=== PATIENT | female | born 1995 | race Caucasian/White ===

== ENCOUNTER → 2023-03-01 09:14 | Outpatient (BNVA) | payer MEDICAID, SELFPAY | PROVIDERS: Visit Provider Physician Assistant Surgical ==

== ENCOUNTER → 2023-03-02 08:05 | Outpatient (BNVA) | payer MEDICAID, SELFPAY | PROVIDERS: Visit Provider Surgery ==

== ENCOUNTER 2024-11-02 07:58 | Outpatient (AMB) | payer OTHER, SELFPAY ==
--- NOTE | 2024-11-02 09:56 | A.OFFVIS_ITS ---
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: Details: Start time: 9.41am, End time: 10.41am ?I spent 55 minutes speaking with the patient on the phone plus an additional 5 minutes reviewing and updating records for a total of 60 minutes HPI Comments Details: Previous weight loss efforts: Nutrisystem, Herbalife, difficult to exercise due to DJD Wakes up: 6am, Sleeps: 10pm Breakfast: 8.30am (oatmeal, muffin) Lunch: 12.30pm (meat and vegetables or skips and snacks) Dinner: 6pm (steak, chicken, rice and vegetables) Snacks: twice between breakfast (pretzels, crackers and fruits) Exercise: walking outside, Stepper Fluids: Coffee 1 cup/day (creamer), tea: none, soda: none, juice: occasionally, ETOH: none PFSH Medical History (Updated 11/02/24 @ 10:20 by Raymond Martinez MD) Anxiety Depression GERD (gastroesophageal reflux disease) DJD (degenerative joint disease) Surgical History (Updated 03/01/23 @ 09:34 by Nolvia Patel CMA) Hx of arthroscopic knee surgery Family History (Updated 11/01/24 @ 10:07 by Nolvia Patel CMA) Mother Hypertension Back problem Brother No problems noted. Social History (Updated 11/01/24 @ 10:07 by Nolvia Patel CMA) Alcohol intake: current Alcohol intake frequency: holidays/special occasions only Patient Tobacco Use Status: Never used Tobacco Telehealth Telehealth Telehealth Platform: Telephone Location of provider rendering services: practice address Location of patient: address on file Patient Identification confirmed using: Name, : Yes Telehealth method: voice only Patient verbally consented to treatment: Yes Patient verbally consented to billing insurance company: Yes Patient informed of any privacy concerns related to visit: Yes Minutes spent on Phone/Video with Pt.: 60 Assessment & Plan Assessment & Plan (1) Obesity: Code(s): E66.9 - Obesity, unspecified Category: Medical Qualifiers: Obesity type: due to excess calories Obesity classification: adult class 2 (BMI 35 - 39.9) Serious obesity comorbidity presence: without serious comorbidity Body mass index: BMI 37.0-37.9 Qualified Code(s): E66.812 - Obesity, class 2; E66.09 - Other obesity due to excess calories; Z68.37 - Body mass index [BMI] 37.0-37.9, adult Plan: 1.? Plan for lap sleeve gastrectomy. If diaphragmatic or ventral hernias are present at time of surgery, these will be repaired laparoscopically as well. I emphasized the importance of close follow-up, adherence to instructions and good communication. The surgery does not replace the need to change your lifestlyle which is the cause of the obesity problem. The surgery provides the motivation to try again to change your lifestyle, it reduces the appetite and make the transition to a better lifestyle easier and doubles the amount of weight you would lose compared to doing the lifestyle change without the surgery. You will need to be on a liquid diet with protein shakes for 2 weeks before surgery to maximize weight loss and boost your nutritional status to recover better from surgery and also for the first two weeks after surgery to let the stomach heal before we introduce other foods. After the first 2 weeks we will introduce protein bars and soft foods like scrambled eggs, cottage cheese and yogurt and after the 6th week will introduce meat, fish and cooked vegetables in small amounts. Over time you should be able to eat everything in small amounts. Side effects like nausea, vomiting, heartburn or abdominal pain are not common in the practice unless you are not following in the practice. This operation requires lifetime commitment to following in our practice and communication with me. You will much less weight and experience side effects if you don?t communicate or not following in the practice. Complications are rare and in our practice is about 1/10 of the national average. However, you can develop bleeding that may require transfusion (hasn?t happened for year in the practice), you may from complications (we did not have any deaths in the practice) and infections. Infections are usually a result of breakdown in communication or not understanding or following directions correctly. They are difficult to treat, they can happen during the first 6 weeks, they may require to be in the hospital for weeks or even months, not being able to eat by mouth and you may have drains and surgeries to try and correct the issue. Other risks and complications include possible conversion to an open procedure, leaks, small bowel obstruction, blood clots, cardiac, or pulmonary complications, as intermediate accountant complications such as ulcers, insufficient weight loss and vitamin deficiencies. 2. You will receive a link of our software ruthann to generate an individualized nutritional and exercise plan specific for you. Please send me a screenshot of the plans you will generate Meal to include lean meat (beef, fish, pork, turkey, chicken), or mozambican yogurt, or egg whites, or beans with a salad with olive oil and fruits (berries, pears, apples, kiwi). Avoid salt, breads, potatoes, rice, pasta, desserts. ?3. If you choose shakes, each shake would be drunk slowly, like coffee in a period of 2 hours. ?4. If you choose bars, cut each bar in 4 pieces and eat each piece in 30min ?to make each bar last 2 hours. ?5. I emphasized the importance of measuring accurately the food portion and measure it when serving the food in plate ?6. The meal portions include a specific number of forks of meat and salad. You always eat the meat portion but you can replace up to half of salad/vegetables portion with rice, potatoes or pasta, or a fruit ?if you like. The less you do it the better weight loss will be. ?7. One full-size fork is what it can be scooped on the fork without falling aside and not what can be bit with the fork. Use regular forks like those you find in a typical restaurant. ?8.? Please buy the body composition scale we discussed and send me weight measurements as soon as possible and then once a week. Always include your diet and exercise plan. 9. The best choice would be to purchase a stationary bike, elliptical or treadmill at home that can track calories. Let me know if you do so I can give you an exercise plan. ?10.?It is important of avoiding and for at least 18 months postoperatively and has been discussed at the infosession. ?11. Goal is to lose at least 1.5-2lbs per week ?12. Goal to lose 10% of your weight before surgery, which is about 21lbs. Ultimate weight goal: 191lbs before surgery 13. Please follow the diet plan exactly without any change. If you don't like something about the plan or you feel hungry you need to communicate with me so I can help you revise the plan. You should not change the plan yourself. 14. To be scheduled for EGD due to the history of GERD. The possibility of biopsies was discussed. Patient needs to avoid use of NSAIDs and aspirin for 1 week prior to EGD. You must be on liquids only the day before your endoscopy. Risks of perforation and bleeding was discussed with the patient. This will be an outpatient procedure with IV sedation. Orders: Orders Insulin Today E66.9 - Obesity, unspecified, K21.9 - Gastro-esophageal reflux disease without esophagitis, Z68.35 - Body mass index [BMI] 35.0-35.9, adult Lipid Panel Today E66.9 - Obesity, unspecified, K21.9 - Gastro-esophageal reflux disease without esophagitis, Z68.35 - Body mass index [BMI] 35.0-35.9, adult IRON PROFILE Today E66.9 - Obesity, unspecified, K21.9 - Gastro-esophageal reflux disease without esophagitis, Z68.35 - Body mass index [BMI] 35.0-35.9, adult Comprehensive Met. Panel Today E66.9 - Obesity, unspecified, K21.9 - Gastro-esophageal reflux disease without esophagitis, Z68.35 - Body mass index [BMI] 35.0-35.9, adult C Reactive Protein Today E66.9 - Obesity, unspecified, K21.9 - Gastro- esophageal reflux disease without esophagitis, Z68.35 - Body mass index [BMI] 35.0-35.9, adult Vitamin A Today E66.9 - Obesity, unspecified, K21.9 - Gastro-esophageal reflux disease without esophagitis, Z68.35 - Body mass index [BMI] 35.0-35.9, adult TSH reflex Free T4 Today E66.9 - Obesity, unspecified, K21.9 - Gastro- esophageal reflux disease without esophagitis, Z68.35 - Body mass index [BMI] 35.0-35.9, adult ECG 12 lead EKG Today E66.9 - Obesity, unspecified, K21.9 - Gastro-esophageal reflux disease without esophagitis, Z68.35 - Body mass index [BMI] 35.0-35.9, adult FL upper GI w air Today E66.9 - Obesity, unspecified, K21.9 - Gastro-esophageal reflux disease without esophagitis, Z68.35 - Body mass index [BMI] 35.0-35.9, adult Hemoglobin A1c Today E66.9 - Obesity, unspecified, K21.9 - Gastro-esophageal reflux disease without esophagitis, Z68.35 - Body mass index [BMI] 35.0-35.9, adult H Pylori Breath Test Today E66.9 - Obesity, unspecified, K21.9 - Gastro- esophageal reflux disease without esophagitis, Z68.35 - Body mass index [BMI] 35.0-35.9, adult Complete Blood Count Auto Diff Today E66.9 - Obesity, unspecified, K21.9 - Gastro-esophageal reflux disease without esophagitis, Z68.35 - Body mass index [BMI] 35.0-35.9, adult Vitamin B12 and Folate Today E66.9 - Obesity, unspecified, K21.9 - Gastro- esophageal reflux disease without esophagitis, Z68.35 - Body mass index [BMI] 35.0-35.9, adult Zinc Today E66.9 - Obesity, unspecified, K21.9 - Gastro-esophageal reflux disease without esophagitis, Z68.35 - Body mass index [BMI] 35.0-35.9, adult Vitamin B1 Today E66.9 - Obesity, unspecified, K21.9 - Gastro-esophageal reflux disease without esophagitis, Z68.35 - Body mass index [BMI] 35.0-35.9, adult Ferritin Today E66.9 - Obesity, unspecified, K21.9 - Gastro-esophageal reflux disease without esophagitis, Z68.35 - Body mass index [BMI] 35.0-35.9, adult Vitamin D 25-OH Total Today E66.9 - Obesity, unspecified, K21.9 - Gastro- esophageal reflux disease without esophagitis, Z68.35 - Body mass index [BMI] 35.0-35.9, adult US abdomen comp w elastography Today E66.9 - Obesity, unspecified, K21.9 - Gastro-esophageal reflux disease without esophagitis, Z68.35 - Body mass index [BMI] 35.0-35.9, adult XR chest 2V Today E66.9 - Obesity, unspecified, K21.9 - Gastro-esophageal reflux disease without esophagitis, Z68.35 - Body mass index [BMI] 35.0-35.9, adult Referrals Nutrition/Dietitian Referral E66.9 - Obesity, unspecified, K21.9 - Gastro- esophageal reflux disease without esophagitis, Z68.35 - Body mass index [BMI] 35.0-35.9, adult Behavioral Health Referral E66.9 - Obesity, unspecified, K21.9 - Gastro- esophageal reflux disease without esophagitis, Z68.35 - Body mass index [BMI] 35.0-35.9, adult
[2024-11-02 10:03] VITALS: BMI 37.6
== END 2024-11-02 10:42 | disposition home or self-care (01) ==
LOC: HO.HBS 07:58
PROVIDERS: Visit Provider Surgery
DX: E66.812 Obesity, class 2 (principal); Z68.37 Body mass index [BMI] 37.0-37.9, adult
CPT/HCPCS: 99215

== ENCOUNTER 2024-11-07 08:00 | Day surgery (SDC) | payer OTHER, SELFPAY ==
--- NOTE | 2024-11-06 09:04 | HO.ANESPROP2 ---
Documented by User: Ashtyn Rosas NP 11/06/24 09:05 HPI - Anesthesia Eval Consult details Narrative: 28yo F for Upper Endoscopy PMFSH Active Problems Active Problems: All Active Problems Anxiety (Acute) Depression (Acute) GERD (gastroesophageal reflux disease) (Acute) DJD (degenerative joint disease) (Acute) BMI 35.0-35.9,adult (Acute) Obesity (Acute) Past Medical History Medical History Anxiety Depression GERD (gastroesophageal reflux disease) DJD (degenerative joint disease) Family History Family History Mother Hypertension Back problem Brother No problems noted. Surgical History Surgical History Hx of arthroscopic knee surgery Social History Social History Are you a primary patient care coordinator to a significant other at home: No Do you presently have visiting nurse or other home services: No Alcohol intake: current Alcohol intake frequency: holidays/special occasions only Patient Tobacco Use Status: Former Tobacco user Use of substances other than those prescribed or required for medical reasons: No Have you been hit, kicked, punched, or otherwise hurt by someone within the past year? If so, by whom?: No Are you DNR?: No Advance Directives: No Advance Directives Information Provided: Yes Recently lost weight without trying: No Nutrition Risks: No Nutritional Risk Patient : No FDLMP: 09/20/24 Meds Allergies Allergy/AdvReac Type Severity Reaction Status Date / Time Penicillins Allergy Mild Hives Verified 11/07/24 08:19 apples Allergy Mild Numbness Uncoded 11/02/24 09:57 Home Medications ?Medication ?Instructions ?Recorded ?Confirmed ?Last Taken ?Type hydroxyzine HCl 10 mg tablet 5 mg PO Q8H PRN anxiety 03/01/23 11/02/24 Unknown History Assessment and Plan Assessment Anesthesia Assessment: Chart Reviewed Documented by User: Michell Lebron MD 11/07/24 08:46 PMFSH Past Medical History Medical History Anxiety Depression GERD (gastroesophageal reflux disease) DJD (degenerative joint disease) Family History Family History Mother Hypertension Back problem Brother No problems noted. Surgical History Surgical History Hx of arthroscopic knee surgery History of Problems with Anesthesia: No Social History Social History Are you a primary patient care coordinator to a significant other at home: No Do you presently have visiting nurse or other home services: No Alcohol intake: current Alcohol intake frequency: holidays/special occasions only Patient Tobacco Use Status: Former Tobacco user Use of substances other than those prescribed or required for medical reasons: No Have you been hit, kicked, punched, or otherwise hurt by someone within the past year? If so, by whom?: No Are you DNR?: No Advance Directives: No Advance Directives Information Provided: Yes Recently lost weight without trying: No Nutrition Risks: No Nutritional Risk Patient : No FDLMP: 09/20/24 Meds Allergies Allergy/AdvReac Type Severity Reaction Status Date / Time Penicillins Allergy Mild Hives Verified 11/07/24 08:19 apples Allergy Mild Numbness Uncoded 11/02/24 09:57 Home Medications ?Medication ?Instructions ?Recorded ?Confirmed ?Last Taken ?Type hydroxyzine HCl 10 mg tablet 5 mg PO Q8H PRN anxiety 03/01/23 11/02/24 Unknown History Exam Airway Mallampati Class: II TM Dist: >3cm Neck ROM: Full Loose/Missing/Broken Teeth: No Heart: RRR Lungs: CTA Assessment and Plan Assessment Anesthesia Assessment: Anesthesia Plan Discussed Final Anesthetic Review History of Problems with Anesthesia: No NPO: Yes ASA Class: II Final Preanesthetic Review: Meds/Allgs Chart Reviewed, Consent Obtained/Reviewed and Anes Risks/Benef Reviewed Patient Risk: Low Procedure Risk: Intermediate Anesthetic Plan Anesthetic Plan: MAC: Disposition: Standard PACU
--- NOTE | 2024-11-07 08:22 | MHC.SHP ---
Pre-Procedural Eval Section A - 24 Hr Update-Section A only Date of Service: 11/07/24 The patient is an INPATIENT: No Section B - Complete if H&P > 30 days Chief Complaint: obesity Details of Present Illness: GERD Relevant Family History (Specify if Yes): No Relevant Social History: None Present Medications: None Medical History: No relevant PMH History of Previous Operations: No relevant previous surgery Allergies: Allergies Allergy/AdvReac Type Severity Reaction Status Date / Time Penicillins Allergy Mild Hives Verified 11/07/24 08:19 apples Allergy Mild Numbness Uncoded 11/02/24 09:57 Review of Systems Sugical H&P ROS: Negative: Constitution, Cardiovascular, Respiratory, Neurological, Psychiatric, Hem-Onc, Allergic/Immunologic, Gastrointestinal, Genitourinary, Musculoskeletal, Integumentary, Endocrine and Eyes/Ears/Nose/Throat Exam Surgical H&P Exam: Normal: HEENT, Normal: Heart, Normal: Lungs, Normal: Extremities, Normal: Abdomen, Normal: Skin and Normal: Neurological Plan Diagnosis/Plan: Unchanged (EGD to assess etiology of GERD. Risks of bleeding and perforation were discussed with the patient and she is in agreement with the plan.) I have reviewed the history and physical and performed a pertinent physical examination on my patient. No changes have occurred unless specified. Time Spent With Patient Time: Total time managing care of this patient today ____ minutes.
[2024-11-07 08:31] VITALS: BP 115/88; PULSE 103; RESP 14; TEMP 36.8; O2SAT 98; BMI 38.0
--- NOTE | 2024-11-07 08:31 | PM.OP ---
Brief Operative Note Date of Service: 11/07/24 Pre-op diagnosis: GERD Post-op diagnosis: same Procedure: PROCEDURE DATE: 11/07/2024 PREOPERATIVE DIAGNOSIS: GERD POSTOPERATIVE DIAGNOSIS: ?Same as above. 1) small hiatal hernia, 2) distal gastritis PROCEDURE: Laigtdsi-qdvlbh-tqycytcreecu with biopsies Surgeon: Marilou Martinez M.D.. Ph.D. Underground Drill Operator: None ? Anesthesia: IV sedation Estimated blood loss: ?Minimal FINDINGS AND PROCEDURE: ? OPERATIVE INDICATIONS: ?The patient is a 28 year old female known to me who is interested in bariatric surgery. The patient has GERD. Based on this information I recommended an upper endoscopy to evaluate the patient's symptoms. Risks and complications of the surgery were discussed with the patient in advance particularly the possibility of perforation or bleeding that may require surgical intervention. The patient understood the risks and was in agreement with the plan. ? PROCEDURE: After informed consent was obtained by the patient, the patient was ?transferred to the Operating Room and was placed in the supine position.? After successful induction of IV sedation, a mouth block was inserted and the patient was placed in the left lateral decubitus position. An upper endoscopy was performed next, the oropharynx and esophagus appeared within the normal limits. There was a small hiatal hernia. The z-line was smooth. Two biopsies were obtained from the distal esophagus 2-3 cm proximal to the GE junction and two additional biopsies from the GE junction. The stomach was entered and it appeared to be of normal size. There was mild gastritis at distal antrum. There was no stricture or ulcer. A biopsy was obtained from the distal antrum. No significant bleeding was noted from any of the biopsy sites. The scope was then advanced into the duodenum which appeared to be normal as well. At that point the duodenum ?and the stomach were decompressed and the scope was withdrawn from the patient's mouth. The patient extubated and was transferred in stable condition to the Recovery Room for further care. I was present and performed all steps of the procedure. There were no residents to assist with this case. Jeffy Martinez M.D., Ph.D. Surgeon: Raymond Martinez MD Anesthesia: MAC Was an Underground Drill Operator used for this Procedure?: No Estimated blood loss (mL): 0 IV fluids (mL): 400 Urine output (mL): 0 (No Farmer to record output) Pathology: other (1) antrum x1, 2) fundus x1, 3) GE junction x2, 4) distal esophagus x2) Condition: stable Disposition: PACU
[2024-11-07 08:49] LABS: UPreg QC Valid YES; Urine Pregnancy NEGATIVE (NEGATIVE)
[2024-11-07] MEDS: Lactated Ringers 1,000 ML 80 ML IVCONT (08:56)
[2024-11-07 09:20] VITALS: BP 95/57; PULSE 91; RESP 18; TEMP 36.1; O2SAT 98
[2024-11-07 09:33] VITALS: BP 104/69; PULSE 103; RESP 16; TEMP 36.1; O2SAT 96
== END 2024-11-07 10:39 | disposition home or self-care (01) ==
PROVIDERS: Nurse Practitioner; Visit Provider Surgery
PROC: 0DJ08ZZ Inspection of Upper Intestinal Tract, Via Natural or Artificial Opening Endoscopic (ICD-10-PCS; CPT 43235; principal; 2024-11-07 09:30)
DX: K21.9 Gastro-esophageal reflux disease without esophagitis (principal); E66.09 Other obesity due to excess calories; Z68.37 Body mass index [BMI] 37.0-37.9, adult; K29.60 Other gastritis without bleeding; F32.A Depression, unspecified; F41.9 Anxiety disorder, unspecified; M19.90 Unspecified osteoarthritis, unspecified site; Z79.899 Other long term (current) drug therapy; Z88.0 Allergy status to penicillin; Z87.891 Personal history of nicotine dependence
CPT/HCPCS: 43239; 81025; 88305; 88313; 88342; J2003; J2704

== ENCOUNTER → 2024-11-07 08:00 | Outpatient (BNV) | payer OTHER, SELFPAY | PROVIDERS: Visit Provider Surgery | DX: K21.9 Gastro-esophageal reflux disease without esophagitis (principal) | CPT/HCPCS: 43239 ==

== ENCOUNTER 2024-11-15 08:48 | Outpatient (REF) | payer OTHER, SELFPAY ==
--- NOTE | ~2024-11-15 | XR_ITS ---
EXAMINATION: XR CHEST 2 VIEWS HISTORY: E66.9 - Obesity, unspecified COMPARISON: There are no prior studies for comparison. FINDINGS: PA and lateral views of the chest are submitted. The lungs are expanded and clear. There is no pleural effusion, pneumothorax, or pulmonary vascular congestion. The heart is normal in size. The bones are intact. XR/XR chest 2V IMPRESSION: Normal examination of the chest. Electronically signed by: Erasto Prado MD 11/15/2024 02:11 PM [facility]
--- NOTE | 2024-11-15 08:53 | ECG_ITS ---
Test Reason : OBS Blood Pressure : */* mmHG Vent. Rate : 70 BPM Atrial Rate : 70 BPM P-R Int : 140 ms QRS Dur : 92 ms QT Int : 394 ms P-R-T Axes : 40 24 24 degrees QTcB Int : 425 ms Normal sinus rhythm Normal ECG No previous ECGs available Referred By: Raymond Martinez Electronically Signed By: CAMELIA JONAS MD
== END 2024-11-15 08:49 | disposition home or self-care (01) ==
LOC: HO.XRAY 08:48
PROVIDERS: Visit Provider Surgery
DX: E66.9 Obesity, unspecified (principal); Z68.35 Body mass index [BMI] 35.0-35.9, adult; K21.9 Gastro-esophageal reflux disease without esophagitis
CPT/HCPCS: 71046; 93005

== ENCOUNTER → 2024-11-15 08:53 | Outpatient (BNV) | payer OTHER, SELFPAY | PROVIDERS: Visit Provider Internal Medicine Cardiovascular Disease | DX: E66.9 Obesity, unspecified (principal); Z68.35 Body mass index [BMI] 35.0-35.9, adult | CPT/HCPCS: 93010 ==

== ENCOUNTER → 2024-11-15 09:20 | Outpatient (BNV) | payer OTHER, SELFPAY | PROVIDERS: Visit Provider Radiology Diagnostic Radiology | DX: E66.9 Obesity, unspecified (principal) | CPT/HCPCS: 71046 ==

== ENCOUNTER → 2024-11-23 07:59 | Outpatient (BNV) | payer OTHER, SELFPAY | PROVIDERS: Visit Provider Radiology Diagnostic Radiology | DX: E66.9 Obesity, unspecified (principal) | CPT/HCPCS: 76700 ==

== ENCOUNTER 2024-11-23 09:04 | Outpatient (AMB) | payer OTHER, SELFPAY ==
--- NOTE | 2024-11-23 09:11 | A.OFFWM_ITS ---
Intake Intake Visit Reasons: OV BH Intake Allergies Penicillins Allergy (Mild, Verified 11/07/24 08:19) Hives apples Allergy (Mild, Uncoded 11/02/24 09:57) Numbness PFSH Medical History Anxiety Depression GERD (gastroesophageal reflux disease) DJD (degenerative joint disease) Surgical History Hx of arthroscopic knee surgery Family History Mother Hypertension Back problem Brother No problems noted. Social History Are you a primary morning caregiver to a significant other at home: No Do you presently have visiting nurse or other home services: No Alcohol intake: current Alcohol intake frequency: holidays/special occasions only Patient Tobacco Use Status: Former Tobacco user Behavioral Health Assessment Weight Management Therapy Therapy Notes Details PT is a 29 years old Female, who presents for a visit to complete BH assessment as part of surgical weight loss program. Presenting Concerns Referral Source WMP-Provider. Reason for referral Completion of behavioral health assessment as part of process for weight-loss surgery. Precipitating Event Obesity Living Situation Current Living Situation Rent At risk of losing current housing? No Satisfied with current living situation? Yes Comments PT lives with her partner and 5 y/o daughter, and partner kids (12, 8 and 4). Social History Family history and relationship PT has been in a relationship with current partner 1 year ago. Living together for about 9 months. PT has 1 daughter from previous relationship. Parents alive, not close to a=father. She has 2 siblings from dad's side and 1 sibling from mom's. Mom is to her stepfather who raised her. PT reports good fam relationships. Parental/Familial supply chain vice president obligations 5 y/o daughter. partners 3 kids live at home Developmental history and status None. Currently WNL. Social support Mom, partner. Community support None. Rastafari/Spirituality None Cultural/Ethnic information from dad's side and ramiro from maternal side PT was born in [place]. Legal Involvement and History Current or historical involvement with the legal system? None. Education Highest grade completed [employer]s diploma 1 year of college Preferred learning style Learn by doing Currently enrolled in educational program? No Interested in further educational program? Yes Educational Interests/Skills PT used to do office work, admin task/ Employment Employment Status Unemployed (Out of work since February/2024.) Wants help to find employment? No Meaningful activities [place], outdoor activities, play videogames Financial Situation Describe current financial situation Financial struggles are a major source of stress Financial assistance? Food [place], SSI (for daughter.) and [employer]AF[employer] Service Service? No Mental Health and Addiction Treatment Current/Past substance abuse? No Comments Alcohol: occasionally 1-2 x month. 1-3 drinks. Cigarettes/Tobacco: Occasionally smokes hooka w/ nicotine during social situation. Cannabis/Edibles: None. 7 years ago used cannabis. Current/Past addictive behavior concerns? No Psychiatric history PT used to take Lexapro 5mg and hydroxyzine HCL 5mg prescribed by her PCP, for anxiety. Never in therapy before. PT denies ever been in crisis or inpatient for mental health. There is no history and/or current concern about SI/Sa and self-harm or other harm. In 2014 she went to the ER with a panic attacks and anxiety triggered by illness. She got prescribed Zoloft but didn;t do well with that. in 2020 PCP prescribed medicine as her partner had a medical condition and stress/anxiety got worse. PT experiences anxiety Sx (rapid heartbeat, chest pressure, feeling flush like hot, overthinking) couple times at month, usually when gets overstimulated, overwhelmed or is stressed. When feels like this she takes 1/2 of the hydroxyzine and Sx resolve. Medical and Physical Health Summary Additional Medical History not covered in history PT reports she had knee problems since age 7. in he fall and set her backwards with knee issues. She stage 3 arthritis on knees, the worse is the right one. She will need a surgery and would benefit from losing weight. Sexual History concerns None Physical exam in the last year? Yes Pain Screening Current pain? Yes Pain in the last few months? Yes Comments Daily pain, pain level is an 8 1/2 most days, on good days the pain is manageable. She takes tylenol or motrin for pain. Medications Is the patient compliant with medications? Not applicable Does the patient have Bae Guardian in place? Not applicable Does the patient use complimentary health approaches? No Trauma/Abuse History History of trauma? Yes Assessment & Plan Assessment & Plan (1) Anxiety: Code(s): F41.9 - Anxiety disorder, unspecified Plan Not cleared yet as PT will have return for a second visit to finish assessment. Next ruthann: 12/21/2024 at 1pm, in person. - PT was offered a sooner visit but PT prefers in person. Coding Level of Care Code New Pt Psy Diag Eval (77849) Patient Type New Diagnoses Anxiety F41.9 Time Spent (min) 60
--- OUTSIDE RECORDS SUMMARY | 2024-11-23 09:30 | XMS_ITS | Clinical Summary ---
Author Organization [facility] Address [address] [place] [address] Care Team Providers Care Seafood Packer Name Role Phone Dakota Hook DO Primary Care Provider Unavaila ble Allergies Active Allergy Reactions Severity Noted Date Comments Amoxicillin Hives/Urticaria 02/23/2018 Penicillins Hives/Urticaria 02/23/2018 Medications Medication Sig Dispensed Refills Start Date End Date Status escitalopram (LEXAPRO) 5 MG tablet TAKE 1 TABLET BY MOUTH EVERY DAY 90 Tablet 1 04/25/2024 Active hydrOXYzine (ATARAX) 10 MG tablet TAKE 1/2 TABLET BY MOUTH EVERY 8 HOURS NEEDED FOR ANXIETY. 135 Tablet 1 04/25/2024 Active Active Problems Problem Noted Date Anxiety Patellar instability of both knees Immunizations Name Administration Dates Next Due COVID-19 (Moderna) PT Reported 03/09/2022,2020,08/31/2021 Tdap 09/23/2020 Family History Medical History Relation Name Comments Depression/Anxiety Maternal Grandfather Drug Abuse Maternal Grandfather Relation Name Status Comments Maternal Grandfather Social History Tobacco Use Types Packs/Day Years Used Date Smoking Tobacco: Never Smokeless Tobacco: Never Alcohol Use Standard Drinks/Week Comments No 0 (1 standard drink = 0.6 oz pur e alcohol) Sex Assigned at Date Recorded Female 02/25/2020 4:49 PM E DT Last Filed Vital Signs Vital Sign Reading Time Taken Comments Blood Pressure 110/68 07/15/2023 10:17 AM EDT Pulse 78 07/15/2023 10:17 AM EDT Temperature 36.8 ??C (98.3 ??F) 07/15/2023 10:17 AM E DT Respiratory Rate 12 03/21/2018 9:12 AM EDT Oxygen Saturation 99% 01/08/2020 9:03 AM EDT Inhaled Oxygen Concentration - - Weight 89.4 kg (197 lb) 07/15/2023 10:17 AM EDT Height 160 cm (5' 3 ) 07/15/2023 10:17 AM EDT Body Mass Index 34.9 07/15/2023 10:17 AM EDT Plan of Treatment Health Maintenance Due Date Last Done Comments CERVICAL CANCER SCREENING 2016 Covid-19 Vaccine (2022-11 4 season) 2024 03/09/2022, 09/28/2021, 08/31/2021 INFLUENZA (#1) 2024 07/03/2020 (Refused) BMI CHECK/ADVISE 10/24/2024 01/14/2022, 09/2021, 07/03/2020, Additional history exists DEPRESSION SCREENING/FOLLOWUP 10/24/2024, 07/15/2023, 06/08/2023, Additional history exists SOCIAL NEEDS SCREENING 10/24/2024 BASELINE HEALTH EXAM 18-39 07/03/2025 07/03/2020, CHOLESTEROL SCREENING 07/03/2025 07/03/2020 DTAP/TDAP/TD (2 - Td or Tdap) 09/23/2030 09/23/2020 PNEUMOCOCCAL VACCINE FOR HIG H RISK PATIENTS (#1) 2060 Care Teams Seafood Packer Relationship Specialty Start Date End Date Dakota Hook DO PCP - General Internal Medicine 12/04/21
--- OUTSIDE RECORDS SUMMARY | 2024-11-23 09:30 | XMS_ITS | Encounter Summary ---
Author Organization [facility] Address [address] [place] [address] Care Team Providers Care Tank Pumper Name Role Phone [place]-Radha Mckenzie MD Primary Care Provider Unavailable Dakota Hook DO Primary Care Provider Unavaila ble Encounter Details Date Type Department Care Team Description 03/25/2021 Pt. Non Urgent Medic al Question Adult Medicine - [address] [address] Yamila Butler PA-C Social History Tobacco Use Types Packs/Day Years Used Date Smoking Tobacco: Never Smokeless Tobacco: Never Alcohol Use Standard Drinks/Week Comments No 0 (1 standard drink = 0.6 oz pur e alcohol) Sex Assigned at Date Recorded Female 02/25/2020 4:49 PM E DT documented as of this encounter Miscellaneous Notes * Telephone Encounter - Sarah Hein L.P.N. - 03/26/2021 8:19 AM EDT From: Emili Lilly To: Paul Butler Sent: 03/25/2021 6:01 PM EDT Subject: Knee dislocation Hello. Just wanted to update I will be going to [facility] urgent care tomorrow following a fall I had on03/24/21 I dislocated my LEFT knee and it severely swollen and I can not stand on it. documented in this encounter Plan of Treatment Not on file documented as of this encounter Visit Diagnoses Not on filedocumented in this encounter Care Teams Tank Pumper Relationship Specialty Start Date End Date [place]-Radha Mckenzie MD PCP - General Internal Medicine 02/08/1808/14 Dakota Hook DO PCP - General Internal Medicine 12/04/21 documented as of this encounter
--- OUTSIDE RECORDS SUMMARY | 2024-11-23 09:30 | XMS_ITS | Encounter Summary ---
Author Organization [facility] Address [address] [place] [address] Care Team Providers Care Bicycle Ii Assembler Name Role Phone [place]-Radha Mckenzie MD Primary Care Provider Unavailable Dakota Hook DO Primary Care Provider Unavaila ble Reason for Visit * Reason Comments E-prescribe Rx Request Encounter Details Date Type Department Care Team Description 05/04/2021 Refill Adult Medicine - [address] [address] Yamila Butler PA-C E-prescribe Rx Request Social History Tobacco Use Types Packs/Day Years Used Date Smoking Tobacco: Never Smokeless Tobacco: Never Alcohol Use Standard Drinks/Week Comments No 0 (1 standard drink = 0.6 oz pur e alcohol) Sex Assigned at Date Recorded Female 02/25/2020 4:49 PM E DT documented as of this encounter Miscellaneous Notes * Telephone Encounter - Ayala Truong - 05/06/2021 1:56 PM EDT Lvm to book appt * Telephone Encounter - Anastacia Rodriguez M.A. - 05/05/2021 1:26 PM EDT Pt needs to pick a new pcp and make appt. Thank you Travis - 11/04/20 Nov - none * Telephone Encounter - Alisona Alexi - 05/05/2021 7:00 AM EDT Patient would like script to be: E-PRESCRIBED/FAXED TO PHARMACY WHEN WAS THE PATIENT'S LAST APPOINTMENT IN ADULT MEDICINE? 11/04/20 WHEN WAS THE LAST TIME THE PATIENT SAW THEIR PCP? No Does patient have an upcoming appointment? Too early to call pt (THE MEDICATION REQUESTED IS ON THE MED LIST ABOVE) All of the medications requested were on the CURRENT MEDS list Did you check the Pharmacy information above?: YES Patient wants: 30 -day supply Is this a mail order prescription request ? NO If the refill is from a FAXED refill request what is the RX # listed on the fax? N/A Patients current insurance carrier is: No billing information found for this encounter. Insurance ID #: No Subscriber Number on File documented in this encounter Plan of Treatment Not on file documented as of this encounter Visit Diagnoses Not on filedocumented in this encounter Care Teams Bicycle Ii Assembler Relationship Specialty Start Date End Date Jaye-Radha Mckenzie MD PCP - General Internal Medicine 02/08/1808/14 Dakota Hook DO PCP - General Internal Medicine 12/04/21 documented as of this encounter
--- OUTSIDE RECORDS SUMMARY | 2024-11-23 09:30 | XMS_ITS | Encounter Summary ---
Author Organization [facility] Address [address] [place] [address] Care Team Providers Care Water Trainer Name Role Phone Jaye-Radha Mckenzie MD Primary Care Provider Unavailable Dakota Hook DO Primary Care Provider Unavaila ble Reason for Visit * Reason Onset Date Comments TEST RESULTS 02/23/2018 Encounter Details Date Type Department Care Team Description 02/23/2018 Telephone Adult Medicine - [address] [address] Rox Aleman PA-C [address] [place] [id number] TEST RESULTS Social History Tobacco Use Types Packs/Day Years Used Date Smoking Tobacco: Never Smokeless Tobacco: Never Alcohol Use Standard Drinks/Week Comments No 0 (1 standard drink = 0.6 oz pur e alcohol) Sex Assigned at Date Recorded Female 02/25/2020 4:49 PM E DT documented as of this encounter Miscellaneous Notes * Telephone Encounter - Kesha Mg M.A. - 02/23/2018 4:07 PM EDT Images from the original note were not included. Lvm please advised of message below Rox Aleman PA-C [facility] Adult Med Floor Nurse ? Please call patient with normal results- normal knee xray documented in this encounter Plan of Treatment Not on file documented as of this encounter Visit Diagnoses Not on filedocumented in this encounter Care Teams Water Trainer Relationship Specialty Start Date End Date [place]-Radha Mckenzie MD PCP - General Internal Medicine 02/08/1808/14 Dakota Hook DO PCP - General Internal Medicine 12/04/21 documented as of this encounter
--- OUTSIDE RECORDS SUMMARY | 2024-11-23 09:30 | XMS_ITS | Encounter Summary ---
Author Organization [facility] Address [address] [place] [address] Care Team Providers Care Dairy Store Manager Name Role Phone Radha Hoover MD Primary Care Provider Unavailable Dakota Hook DO Primary Care Provider Unavaila ble Encounter Details Date Type Department Care Team Description 08/01/2020 Orders Only Medical Records [address] [place] [address] Yamila Butler PA-C Social History Tobacco Use Types Packs/Day Years Used Date Smoking Tobacco: Never Smokeless Tobacco: Never Alcohol Use Standard Drinks/Week Comments No 0 (1 standard drink = 0.6 oz pur e alcohol) Sex Assigned at Date Recorded Female 02/25/2020 4:49 PM E DT COVID-19 Exposure Response Date Recorded In the last month, have you been in contact with someone who was confirmed or suspected to have Coronavirus / COVID-19? No / Unsure 07/03/2020 11:02 AM EDT documented as of this encounter Plan of Treatment Not on file documented as of this encounter Procedures Procedure Name Priority Date/Time Associated Diagnosis Comments OUTSIDE HOLTER MONITOR Routine 07/25/2020 documented in this encounter Results * OUTSIDE HOLTER MONITOR (07/25/2020) Yamila Butler PA-C CARDIOLOGY documented in this encounter Visit Diagnoses Not on filedocumented in this encounter Care Teams Dairy Store Manager Relationship Specialty Start Date End Date Radha Hoover MD PCP - General Internal Medicine 02/08/1808/14 Dakota Hook DO PCP - General Internal Medicine 12/04/21 documented as of this encounter
--- OUTSIDE RECORDS SUMMARY | 2024-11-23 09:30 | XMS_ITS | Clinical Summary ---
Author Organization [facility] Address [address] [place] [address] Care Team Providers Care Fifth Grade Teacher Name Role Phone Monster Rickyayo Primary Care Provider [phone] Surgical History Surgery Date Site/Laterality Comments KNEE ARTHROSCOPY Right PROCEDURE: CO ARTHROSCOPY AID [place] SPINE&/FX KNEE W/O FIXJ Medical History Medical History Date Comments Anxiety DX:Anxiety Knee pain, right DX:Knee pain, r ight Patellar instability of both knees DX:Patellar instability of both knees Family History Medical History Relation Name Comments Depression Maternal Grandfather Drug abuse Maternal Grandfather Relation Name Status Comments Maternal Grandfather Social History Tobacco Use Types Packs/Day Years Used Date Smoking Tobacco: Never Smokeless Tobacco: Never Alcohol Use Standard Drinks/Week Comments No 0 (1 standard drink = 0.6 oz pur e alcohol) Sex and Gender Information Value Date Recorded Sex Assigned at Not on file Gender Identity Not on file Sexual Orientation Not on file Obstetrics History Last Filed Vital Signs Vital Sign Reading Time Taken Comments Blood Pressure 110/68 07/15/2023 10:17 AM EDT Pulse 78 07/15/2023 10:17 AM EDT Temperature - - Respiratory Rate - - Oxygen Saturation - - Inhaled Oxygen Concentration - - Weight 89.4 kg (197 lb) 07/15/2023 10:17 AM EDT Height 160 cm (5' 3 ) 07/15/2023 10:17 AM EDT Body Mass Index 34.9 07/15/2023 10:17 AM EDT Plan of Treatment Health Maintenance Due Date Last Done Comments Hepatitis B Vaccines (1 of 3 - 19+ 3-dose series) 2014 Cervical Cancer Screening: P ap Smear 2016 Depression Screening 07/07/2020 HIV Screening 07/07/2020 Hepatitis C Screening 07/07/2020 Social Influencers of Health Screening 07/07/2020 COVID-19 Vaccine (4 - 2023-2 5 season) 2024 03/09/2022, 09/28/2021, 08/31/2021 Influenza Vaccine (#1) 2024 DTaP,Tdap,and Td Vaccines (2 - Td or Tdap) 09/23/2030 09/23/2020 HIB Vaccines Aged Out No longer eligi ble based on patient's age to complete this topic HPV Vaccines Aged Out No longer eligi ble based on patient's age to complete this topic Hepatitis A Vaccines Aged Out No long er eligible based on patient's age to complete this topic IPV Vaccines Aged Out No longer eligi ble based on patient's age to complete this topic MMR Vaccines Aged Out No longer eligi ble based on patient's age to complete this topic Meningococcal ACWY Vaccine Aged Out N o longer eligible based on patient's age to complete this topic Pneumococcal Vaccine: Pediatrics (0 to 5 Years) and At-Risk Patients (6 to 64 Years) Aged Out No longer eligible b ased on patient's age to complete this topic RSV Immunization Patients Under 20 months Aged Out No longer eligible b ased on patient's age to complete this topic Varicella Vaccines Aged Out No longer eligible based on patient's age to complete this topic Care Teams Fifth Grade Teacher Relationship Specialty Start Date End Date Dakota Hook DO PCP - General Internal Medicine 12/04/21
--- OUTSIDE RECORDS SUMMARY | 2024-11-23 09:30 | XMS_ITS | Encounter Summary ---
Author Organization [facility] Address [address] [place] [address] Care Team Providers Care Finance Lead Name Role Phone Radha Hoover MD Primary Care Provider Unavailable Dakota Hook DO Primary Care Provider Unavaila ble Encounter Details Date Type Department Care Team Description 04/29/2021 Farm Implement Mechanic Report Medical Records [address] [place] [address] Giles Urbano Social History Tobacco Use Types Packs/Day Years Used Date Smoking Tobacco: Never Smokeless Tobacco: Never Alcohol Use Standard Drinks/Week Comments No 0 (1 standard drink = 0.6 oz pur e alcohol) Sex Assigned at Date Recorded Female 02/25/2020 4:49 PM E DT documented as of this encounter Plan of Treatment Not on file documented as of this encounter Visit Diagnoses Not on filedocumented in this encounter Care Teams Finance Lead Relationship Specialty Start Date End Date Radha Hoover MD PCP - General Internal Medicine 02/08/1808/14 Dakota Hook DO PCP - General Internal Medicine 12/04/21 documented as of this encounter
--- OUTSIDE RECORDS SUMMARY | 2024-11-23 09:30 | XMS_ITS | Encounter Summary ---
Author Organization [facility] Address [address] [place] [address] Care Team Providers Care Back Up Machine Operator Name Role Phone [place]-Radha Mckenzie MD Primary Care Provider Unavailable Dakota Hook DO Primary Care Provider Unavaila ble Encounter Details Date Type Department Care Team Description 10/27/2020 Pt. Non Urgent Medic al Question Adult Medicine - [address] [address] Yamila Butler PA-C Social History Tobacco Use Types Packs/Day Years Used Date Smoking Tobacco: Never Smokeless Tobacco: Never Alcohol Use Standard Drinks/Week Comments No 0 (1 standard drink = 0.6 oz pur e alcohol) Sex Assigned at Date Recorded Female 02/25/2020 4:49 PM E DT documented as of this encounter Progress Notes * Gladys Hoffman M.A. - 10/27/2020 10:13 AM ESTFrom: Emili Lilly To: Yamila Butler PA-C Sent: 10/27/2020 9:26 AM EST Subject: Concussion Was seen on Tuesday 10/24 @ [facility] for concussion. Was told to follow up with primary care if it was still bothering me Tuesday. 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 Pain is consistent and on a scale of 1-10 about a 6/7. Ibuprofen seems to not be working well. documented in this encounter Plan of Treatment Not on file documented as of this encounter Visit Diagnoses Not on filedocumented in this encounter Care Teams Back Up Machine Operator Relationship Specialty Start Date End Date [place]-Radha Mckenzie MD PCP - General Internal Medicine 02/08/1808/14 Dakota Hook DO PCP - General Internal Medicine 12/04/21 documented as of this encounter
--- OUTSIDE RECORDS SUMMARY | 2024-11-23 09:30 | XMS_ITS | Encounter Summary ---
Author Organization [facility] Address [address] [place] [address] Care Team Providers Care House Sitter Name Role Phone Radha Hoover MD Primary Care Provider Unavailable Dakota Hook DO Primary Care Provider Unavaila ble Encounter Details Date Type Department Care Team Description 08/14/2020 Pt. Non Urgent Medic al Question Adult Medicine - [address] [address] Yamila Butler PA-C Social History Tobacco Use Types Packs/Day Years Used Date Smoking Tobacco: Never Smokeless Tobacco: Never Alcohol Use Standard Drinks/Week Comments No 0 (1 standard drink = 0.6 oz pur e alcohol) Sex Assigned at Date Recorded Female 02/25/2020 4:49 PM E DT documented as of this encounter Progress Notes * Sarah Hein L.P.N. - 08/14/2020 3:05 PM EDTFrom: Emili Lilly To: Yamila Butler PA-C Sent: 08/14/2020 2:35 PM EDT Subject: COVID19 Adán akins recently had a COVID case and was shut down over the weekend. Which I was there over the weekend job is requesting I get Covid test. Do I need referral documented in this encounter Plan of Treatment Not on file documented as of this encounter Visit Diagnoses Not on filedocumented in this encounter Care Teams House Sitter Relationship Specialty Start Date End Date [place]-Radha Mckenzie MD PCP - General Internal Medicine 02/08/1808/14 Dakota Hook DO PCP - General Internal Medicine 12/04/21 documented as of this encounter
--- OUTSIDE RECORDS SUMMARY | 2024-11-23 09:30 | XMS_ITS | Encounter Summary ---
Author Organization [facility] Address [address] [place] [address] Care Team Providers Care Spool Salvager Name Role Phone Radha Hoover MD Primary Care Provider Unavailable Dakota Hook DO Primary Care Provider Unavaila ble Reason for Visit * Reason Onset Date Comments Error 04/24/2018 Encounter Details Date Type Department Care Team Description 04/24/2018 Telephone Physiatry - [address] [address] Juan J Ashley DO Error Social History Tobacco Use Types Packs/Day Years [...] on filedocumented in this encounter Care Teams Spool Salvager Relationship Specialty Start Date End Date Radha Hoover MD PCP - General Internal Medicine 02/08/1808/14 Dakota Hook DO PCP - General Internal Medicine 12/04/21 documented as of this encounter
== END 2024-11-23 10:05 | disposition home or self-care (01) ==
PROVIDERS: Visit Provider Counselor Mental Health
DX: F41.9 Anxiety disorder, unspecified (principal)
CPT/HCPCS: 90791

== ENCOUNTER 2024-11-28 08:43 | Outpatient (REF) | payer OTHER, SELFPAY ==
--- OUTSIDE RECORDS SUMMARY | 2024-11-28 08:47 | XMS_ITS | Clinical Summary ---
Author Organization [facility] Address [address] [place] [address] Care Team Providers Care Car Dropper Name Role Phone Monster Rickyayo Primary Care Provider [phone] Surgical History Surgery Date Site/Laterality Comments KNEE ARTHROSCOPY Right PROCEDURE: DC ARTHROSCOPY AID [place] SPINE&/FX KNEE W/O FIXJ [...] age to complete this topic Care Teams Car Dropper Relationship Specialty Start Date End Date Dakota Hook DO PCP - General Internal Medicine 12/04/21
[2024-11-28 09:28] LABS: MANUAL DIFF FLAG NO
[2024-11-28 10:24] LABS: Basophils Absolute Auto 0.1 X10*3/uL (0.0-0.2); Basophils Percent Auto 0.7 % (0-2); Eosinophils Absolute Auto 0.1 X10*3/uL (0.0-0.4); Eosinophils Percent Auto 1.1 % (0-4); Hematocrit 40.2 % (37.0-47.0); Hemoglobin 13.1 g/dl (12.0-16.0); Imm Gran Abs Auto 0.03 X10*3/uL (0.00-0.03); Imm Gran Pct Auto 0.4 % (0.0-0.4); Lymphocytes Absolute Auto 2.7 X10*3/uL (1.2-4.9); Lymphocytes Percent Auto 33.5 % (20-40); Mean Corpuscular HGB Conc 32.6 g/dl (31.0-35.0); Mean Corpuscular Hemoglobin 28.9 pg (27.0-33.0); Mean Corpuscular Volume 88.7 fL (80.0-98.0); Mean Platelet Volume 10.1 fL (9.4-12.3); Monocytes Absolute Auto 0.5 X10*3/uL (0.1-1.2); Monocytes Percent Auto 5.9 % (2-11); Neutrophils Absolute Auto 4.7 x10*3/uL (2.0-8.3); Neutrophils Percent Auto 58.4 % (45-73); Platelet Count 265 X10*3/uL (160-400); Red Blood Count 4.53 X10*6/uL (4.20-5.50); Red Cell Distribution Width 12.7 % (11.0-16.0)
[2024-11-28 10:32] LABS: Estimated Average Glucose 94 mg/dL; Hemoglobin A1C 105.3759 umol/L; Hemoglobin A1c % 4.9 % (<6.0)
[2024-11-28 10:56] LABS: Alanine Aminotransferase 6 U/L (0-31); Alkaline Phosphatase 61 U/L (39-117); Anion Gap 10 (12-20); Aspartate Amino Transferase 15 U/L (5-31); Bilirubin Total 0.7 mg/dL (0.0-1.0); Blood Urea Nitrogen 6 mg/dL (9-16); C Reactive Protein 0.59 mg/dL (< or = 0.50); Carbon Dioxide 24 mmol/L (22-29); Chloride 107 mmol/L (96-108); Cholesterol 125 mg/dL (<200); Estimated Glomerular Filt Rate > 60; Glucose Random 90 mg/dL (60-115); HDL Cholesterol 35 mg/dL (>40); Iron 82 mcg/dL (30-160); LDL Cholesterol Calculated 74 mg/dL (<100); Percent Iron Saturation 34 % (15-50); Potassium 3.9 mmol/L (3.3-5.1); Sodium 137 mmol/L (135-145); Total Iron Binding Capacity 238 mcg/dL (228-428); Total Protein 7.6 g/dL (6.5-8.0); Triglycerides 83 mg/dL (<150); Unsaturated Iron Binding 156 ug/dL
[2024-11-28 11:22] LABS: Folate 14.5 ng/mL (> or = 4.0); Vitamin B12 390 pg/mL (200-900)
[2024-11-28 11:26] LABS: Ferritin 129 ng/mL (10-122); TSH reflex Free T4 1.31 uIU/mL (0.32-4.0)
[2024-11-28 12:10] LABS: Insulin 6 uU/mL (2-29)
[2024-12-02 17:43] LABS: Zinc 62 mcg/dL (60-130)
[2024-12-03 11:53] LABS: Vitamin A 33 mcg/dL (38-98)
[2024-12-06 06:18] LABS: Vitamin B1 <6 nmol/L (8-30)
== END 2024-11-28 08:44 | disposition home or self-care (01) ==
LOC: HO.LAB 08:43
PROVIDERS: Visit Provider Surgery
DX: E66.9 Obesity, unspecified (principal); Z68.35 Body mass index [BMI] 35.0-35.9, adult; K21.9 Gastro-esophageal reflux disease without esophagitis
CPT/HCPCS: 36415; 80053; 80061; 82306; 82607; 82728; 82746; 83036; 83525; 83540; 84425; 84443; 84590; 84630; 85025; 86140

== ENCOUNTER 2024-12-21 12:49 | Outpatient (AMB) | payer OTHER, SELFPAY ==
--- NOTE | 2024-12-21 13:00 | A.OFFWM_ITS ---
Intake Intake Visit Reasons: OV BH F/U Allergies Penicillins Allergy (Mild, Verified 11/07/24 08:19) Hives apples Allergy (Mild, Uncoded 11/02/24 09:57) Numbness PFSH Medical History Anxiety Depression GERD (gastroesophageal reflux disease) DJD (degenerative joint disease) Surgical History Hx of arthroscopic knee surgery Family History Mother Hypertension Back problem Brother No problems noted. Social History Are you a primary health care sanitary technician to a significant other at home: No Do you presently have visiting nurse or other home services: No Alcohol intake: current Alcohol intake frequency: holidays/special occasions only Patient Tobacco Use Status: Former Tobacco user Behavioral Health Assessment Weight Management Therapy Therapy Notes Details The patient is a 29-year-old female presenting for a follow-up visit to complete her behavioral health assessment as part of the surgical weight loss program. The patient expresses interest in weight-loss surgery primarily to improve her health, with particular concern for knee issues that have worsened due to her weight. The patient has a history of anxiety and was prescribed Lexapro 5mg and hydroxyzine HCL 5mg by her primary care provider. However, she has never participated in therapy. She denies any past mental health crises or inpatient treatment. The patient also reports no history or current concerns regarding suicidal ideation (SI), self-harm, or harm to others. She experiences anxiety symptoms, such as rapid heartbeat, chest pressure, feeling flushed, and overthinking, a couple of times per month. These symptoms typically occur when she is overstimulated, overwhelmed, or stressed. When these symptoms arise, she takes half of a hydroxyzine tablet, which helps alleviate her anxiety. There is no evidence of stress- or emotional-eating. Initial scores from the Binge Eating Scale (BES) were elevated; however, today?s repeated BES scores are significantly lower, indicating a reduction in inappropriate eating habits. The new BES scores suggest a low risk for binge eating behavior. The patient would benefit from a structured program to further improve and refine her eating behaviors. The patient?s PHQ-9 scores indicate no active symptoms or concerns related to depression. The mental status exam is within normal limits, suggesting that her mental and emotional functioning is intact. From a behavioral health perspective, the patient is cleared to proceed with the surgical weight loss program. Presenting Concerns Referral Source WMP-Provider. Reason for referral Completion of behavioral health assessment as part of process for weight-loss surgery. Precipitating Event Obesity Living Situation Current Living Situation Rent At risk of losing current housing? No Satisfied with current living situation? Yes Comments PT lives with her partner and 5 y/o daughter, and partner kids (12, 8 and 4). Food/Weight/Diet Expectations of change Initial Goal to lose 10% of your weight before surgery, which is about 21lbs. Ultimate weight goal: 191lbs before surgery Pt started the program at 212Lbs and most recent weight as of 12/20/2024 was 195Lbs. PT is implementing the following: Current meal plan: Shakes and 1 meal. Exercise plan: stationary bike. 45min 4 days at week. History/Relationship with food Pt reports she likes food and enjoys try new foods which has been major issue . Portions are average but, would eat more times or have more meals at day than the 3-normal suggested. Found herself using food to celebrate after a great week/day or event happens or to cheer her up after a bad day/week or event, however there is no evidence for binge eating. Pt denies emotional/stress eating, or increased appetite when depress. On her case her appetite decreases when not doing well emotionally. She used to eat out a lot as a social activity or hobby. during the week she was not doing breakfast but then would be hungrier by the end of the day often overeating in between dinner and bedtime and at times event waking up at night to snack on grapes or cheese sticks. Example of meals before starting the program: Breakfast: Eggs, potatoes with cerna and pancakes. Lunch: Take out most days. [employer] ([employer]icken w/ potatoes and soda) Dinner: Rice with some type of meat. Snacks: None. At times pretzels and peanut butter. Drinks/Liquids: 1 can at day. coffee 1 in the morning. 1 Tea w/ sugar and cream. History/Relationship with weight Always overweight in childhood. She remembers she was in middle school the heaviest of her class. In HS she was around 130Lbs. In the last 10 years, the patient's Lowest weight was 142Lbs (6 years ago) and highest 217Lbs around Pt noticed weight gain after started on anxiety meds, as her appetite decreased when anxious. History/Relationship with dieting Herbalife 2 times, successful both times, but once returned to regular eating then she would gain the weight back. Lost 16Lbs in 1 month. Gym membership. Fasting, meal service. Binge Eating Do you frequently eat large amounts of food in short periods of time, not feeling physically hungry? Yes Do you feel out of control when you eat a large amount of food in a short period of time? No Do you eat large amounts of food rapidly and typically alone? No Night Eating Do you wake up at least once during the night to eat? No If you wake up in the night, do you find that it is necessary to eat something in order to fall back asleep? No Do you have little or no appetite in the morning and feel very hungry in the evening, often overeating between dinner and when you go to bed? Yes Social History Family history and relationship PT has been in a relationship with current partner 1 year ago. Living together for about 9 months. PT has 1 daughter from previous relationship. Parents alive, not close to father. She has 2 siblings from dad's side and 1 sibling from mom's. Mom is to her stepfather who raised her. PT reports good fam relationships. Parental/Familial information technology program manager obligations 5 y/o daughter. partners 3 kids live at home Developmental history and status None. Currently WNL. Social support Mom, partner. Community support None. Episcopal/Spirituality None Cultural/Ethnic information from dad's side and ramiro from maternal side PT was born in [place]. Legal Involvement and History Current or historical involvement with the legal system? None. Education Highest grade completed [employer] diploma 1 year of college Preferred learning style Learn by doing Currently enrolled in educational program? No Interested in further educational program? Yes Educational Interests/Skills PT used to do office work, admin task/ Employment Employment Status Unemployed (Out of work since February/2024.) Wants help to find employment? No Meaningful activities [place], outdoor activities, play videogames Financial Situation Describe current financial situation Financial struggles are a major source of stress Financial assistance? Food [place], SSI (for daughter.) and TAF[employer] Service Service? No Mental Health and Addiction Treatment Current/Past substance abuse? No Comments Alcohol: occasionally 1-2 x month. 1-3 drinks. Cigarettes/Tobacco: Occasionally smokes hooka w/ nicotine during social situation. Cannabis/Edibles: None. 7 years ago used cannabis. Current/Past addictive behavior concerns? No Psychiatric history PT used to take Lexapro 5mg and hydroxyzine HCL 5mg prescribed by her PCP, for anxiety. Never in therapy before. PT denies ever been in crisis or inpatient for mental health. There is no history and/or current concern about SI/Sa and self-harm or other harm. In 2014 she went to the ER with a panic attacks and anxiety triggered by illness. She got prescribed Zoloft but didn't do well with that. in 2020 PCP prescribed medicine as her partner had a medical condition and stress/anxiety got worse. PT experiences anxiety Sx (rapid heartbeat, chest pressure, feeling flush like hot, overthinking) couple times at month, usually when gets overstimulated, overwhelmed or is stressed. When feels like this she takes 1/2 of the hydroxyzine and Sx resolve. Medical and Physical Health Summary Additional Medical History not covered in history PT reports she had knee problems since age 7. in he fall and set her backwards with knee issues. She stage 3 arthritis on knees, the worse is the right one. She will need a surgery and would benefit from losing weight. Sexual History concerns None Physical exam in the last year? Yes Pain Screening Current pain? Yes Pain in the last few months? Yes Comments Daily pain, pain level is an 8 1/2 most days, on good days the pain is manageable. She takes tylenol or motrin for pain. Medications Is the patient compliant with medications? Not applicable Does the patient have Bae Guardian in place? Not applicable Does the patient use complimentary health approaches? No Trauma/Abuse History History of trauma? Yes Questionnaires PHQ-9 Over the last 2 weeks, how often have you been bothered by any of the following problems? 1. Little interest or pleasure in doing things: not at all 2. Feeling down, depressed, or hopeless: not at all 3. Trouble falling or staying asleep, or sleeping too much: several days 4. Feeling tired or having little energy: several days 5. Poor appetite or overeating: not at all 6. Feeling bad about yourself - or that you are a failure or have let yourself or your family down: not at all 7. Trouble concentrating on things, such as reading the newspaper or watching television: not at all 8. Moving or speaking so slowly that other people could have noticed. Or the opp osite - being so fidgety or restless that you have been moving around a lot more than usual: not at all 9. Thoughts that you would be better off or of hurting yourself in some way: not at all Total score: 2 Depression Screening Interpretation: Negative (Initial scores from new PT pack scanned on 11/02/2024 was 19, indicating moderate Sx.) Depression Screening Done: Yes 25460 - PHQ-9 Billing: Yes Source: Developed by Drs. Erasto Nixon, Hyacinth Wylie, Zion Franklin and colleagues, with an educational james from [employer]. Binge Eating Scale Group 1 A. I don't feel self-conscious about my wt. or body size when I'm with others. B. I feel concerned about how I look to others, but it normally does not make me fell disappointed with myself C. I do get self-conscious about my appearance and wt. which makes me feel disappointed in myself. D. I feel very self-conscious about my wt. and frequently I feel intense shame and disgust for myself. I try to avoid social contacts because of my self- consciousness. Response Group 1: B (D before) Group 2 A. I don't have any difficulty eating slowly in the proper manner. B. Although I seem to gobble down foods, I don't end up feeling stuffed because of eating to much. C. At times, I tend to eat quickly and then, I feel uncomfortably full afterwards. D. I have the habit of bolting down my food, without really chewing it. When this happens I usually feel uncomfortably stuffed because I've eaten to much. Response Group 2: A (C before) Group 3 A. I feel capable to control my eating urges when I want to. B. I feel like I have failed to control my eating more than the average person. C. I feel utterly helpless when it comes to feeling in control of my eating urges. D. Because I feel so helpless about controlling my eating I have become very desperate about trying to get control. Response Group 3: A (D before) Group 4 A. I don't have the habit of eating when I'm bored. B. I sometimes eat when I'm bored, but often I'm able to get busy and get my mind off food. C. I have a regular habit of eating when I'm bored, but occasionally, I can use some other activity to get my mind off eating. D. I have a strong habit of eating when I'm bored. Nothing seems to help me breath the habit. Response Group 4: A (D before) Group 5 A. I'm usually physically hungry when I eat something. B. Occasionally, I eat something on impulse even though I really am not hungry. C. I have the regular habit of eating foods, that I might not really enjoy, to satisfy a hungry feeling even though physically, I don't need the food. D. Although I'm not physically hungry, I get a hungry feeling in my mouth that only seems to be satisfied when I eat a food, like sandwich, that fills my mouth. Sometimes, when I eat the food to satisfy my mouth hunger, I then spit the food out so I won't gain weight. Response Group 5: A (C before) Group 6 A. I don't feel any guilt or self-hate after I overeat. B. After I overeat, occasionally I feel guilt or self-hate. C. Almost all the time I experience strong guilt or self-hate after I overeat. Response Group 6: B (C before) Group 7 A. I don't lose total control of my eating when dieting even after periods when I overeat. B. Sometimes when I eat a forbidden food on a diet, I feel like I blew it and eat even more. C. Frequently, I have the habit of saying to myself, I've blown it now, why not go all the way, when I overeat on a diet. When that happens I eat more. D. I have a regular habit of starting a strict diets for myself but I break the diets by going on an eating binge. My life seems to be either a feast or famine. Response Group 7: A (D before) Group 8 A. I rarely eat so much food that I feel uncomfortably stuffed afterwards. B. Usually about once a month, I each such a quantity of food, I end up feeling very stuffed. C. I have regular periods during the month when I eat large amounts of food, either at mealtime or at snacks. D. I eat so much food that I regularly feel quite uncomfortable after eating and sometimes a bit nauseous. Response Group 8: A (C before) Group 9 A. My level of calorie intake does not go up very high or go down very low on a regular basis. B. Sometimes after I overeat, I will try to reduce my caloric intake to almost nothing to compensate for the excess calories I've eaten. C. I have a regular habit of overeating during the night. It seems that my routine is not to be hungry in the morning but overeat in the evening. D. In my adult years, I have had week-long periods where I practically starve myself. This follows periods when I overeat. It seems I live a life of either feast or famine. Response Group 9: A (C before) Group 10 A. I usually am able to stop eating when I want to. I know when enough is enough. B. Every so often, I experience a compulsion to eat which I can't seem to control. C. Frequently, I experience strong urges to eat which I seem unable to control, but at other times I can control my eating urges. D. I feel incapable of controlling urges to eat. I have a fear of not being able to stop eating voluntarily. Response Group 10: A (C before) Group 11 A. I don't have any problem stopping eating when I feel full. B. I usually can stop eating when I feel full but occasionally overeat leaving me feeling uncomfortably stuffed. C. I have a problem stopping eating once I start and usually I feel uncomfortably stuffed after I eat a meal. D. Because I have a problem not being able to stop eating when I want, I sometimes have to induce vomiting to relieve my stuffed feeling. Response Group 11: A (C before) Group 12 A. I seem to eat just as much when I'm with others, Family social gatherings as when I'm by myself. B. Sometimes, when I'm with other persons, I don't eat as much as I want to eat because I'm self-conscious about my eating. C. Frequently, I eat only a small amount of food when others are present, because I'm very embarrassed about my eating. D. I feel so ashamed about overeating that I pick times to overeat when I know no one will see me. I feel like a closet eater. Response Group 12: A (D before) Group 13 A. I eat three meals a day with only an occasional between meal snack. B. I eat 3 meals a day, but I also normally snack between meals. C. When I am snacking heavily, I get in the habit of skipping regular meals. D. There are regular periods when I seem to be continually eating, with no planned meals. Response Group 13: A (D before) Group 14 A. I don't think much about trying to control unwanted eating urges. B. At least some of the time, I feel my thoughts are pre-occupied with trying to control my eating urges. C. I feel that frequently I spend much time thinking about how much I ate or about trying not to eat anymore. D. It seems to me that most of my waking hours are pre-occupied by thoughts about eating or not eating. I feel like I'm constantly struggling not to eat. Response Group 14: C (D before) Group 15 A. I don't think about food a great deal. B. I have strong craving for food but they last only for brief periods of time. C. I have days when I can't seem to think about anything else but food. D. Most of my days seem to be pre-occupied with thoughts about food. I feel like I live to eat. Response Group 15: B (D before) Group 16 A. I usually know whether or not I'm physically hungry. I take the right portion of food to satisfy me. B. Occasionally, I feel uncertain about knowing whether or not I'm physically hungry. A these times it's hard to know how much food I should take to satisfy me. C. Even though I might know how many calories I should eat, I don't have any idea what is a normal amount of food for me. Response Group 16: A (B before ) Binge Eating Score: 5 (Initial score was 39. ) Score less than 17 Minimal Risk Score between 18-26 Moderate Risk Score between 27-46 High Risk Assessment & Plan Assessment & Plan (1) Anxiety: Code(s): F41.9 - Anxiety disorder, unspecified Plan The patient has been cleared from a behavioral health standpoint and is ready for submission. She will return for follow-up support 2-4 weeks post-op. Next appointment: 2-4 weeks post-op. Coding Level of Care Code Established Pt Tele Psytx >53 mins (44257) Patient Type Established Diagnoses Anxiety F41.9 Additional Codes PHQ-9 - 15394 - PHQ-9 Billing: Yes ([id number]) Time Spent (min) 60
--- OUTSIDE RECORDS SUMMARY | 2024-12-21 14:52 | XMS_ITS | Encounter Summary ---
Author Organization [facility] Address [address] [place] [address] Care Team Providers Care Account Strategist Name Role Phone Wallace-Radha Mckenzie MD Primary Care Provider Unavailable Dakota Hook DO Primary Care Provider Unavaila ble Reason for Visit * Reason Onset Date Comments Die Designer Apprentice Feedback 11/06/2020 Orthopedics -Not es not complete Encounter Details Date Type Department Care Team Description 11/06/2020 Telephone Adult Medicine - [address] [address] Yamila Butler PA-C Die Designer Apprentice Feedback (Orthopedics -Notes not complete) Social History Tobacco Use Types Packs/Day Years [...] have Coronavirus / COVID-19? No / Unsure 11/04/2020 8:28 AM EST documented as of this encounter Miscellaneous Notes * Telephone Encounter - Anastacia Miller - 11/06/2020 7:57 AM EST Amira, You placed an order for this patient to see orthopedics , we are unable to book this appointment until your notes are complete. Thank you, Anastacia Orthopedic Navigator [facility] documented in this encounter Plan of Treatment Not on file documented as of this encounter Visit Diagnoses Not on filedocumented in this encounter Care Teams Account Strategist Relationship Specialty Start Date End Date Wallace-Radha Mckenzie MD PCP - General Internal Medicine 02/08/1808/14 Dakota Hook DO PCP - General Internal Medicine 12/04/21 documented as of this encounter
--- OUTSIDE RECORDS SUMMARY | 2024-12-21 14:52 | XMS_ITS | Clinical Summary ---
Author Organization Patient Business Ser [facility] Address [address] [place] [address] Care Team Providers Care Radio Tower Technician Name Role Phone Raeannnena Rickyayo Primary Care Provider [phone] Surgical History Surgery Date Site/Laterality Comments KNEE ARTHROSCOPY Right PROCEDURE: CT ARTHROSCOPY AID TX SPINE&/FX KNEE W/O FIXJ [...] drink = 0.6 oz pur e alcohol) Comments Unknown Sex and Gender Information Value Date Recorded Sex Assigned at Not on file Legal Sex Female 9:42 AM EDT Gender Identity Not on file Sexual Orientation [...] patient's age to complete this topic Meningococcal B Vacine Aged Out No lo nger eligible based on patient's age to complete [...] age to complete this topic Care Teams Radio Tower Technician Relationship Specialty Start Date End Date Dakota Hook DO PCP - General Internal Medicine 12/04/21
--- OUTSIDE RECORDS SUMMARY | 2024-12-21 14:52 | XMS_ITS | Encounter Summary ---
Author Organization [facility] Address [address] [place] [address] Care Team Providers Care Table Tender Name Role Phone [place]-Radha Mckenzie MD Primary Care Provider Unavailable Dakota Hook DO Primary Care Provider Unavaila ble Encounter Details Date Type Department Care Team Description 10/27/2020 Pt. Non Urgent Medic al Question Adult Medicine - [address] [address] Yamila Butler PA-C Social History Tobacco Use [...] Concussion Was seen on Tuesday 10/24 @ [facility] for concussion. Was told to follow up [...] on filedocumented in this encounter Care Teams Table Tender Relationship Specialty Start Date End Date Santa Claus-Radha Mckenzie MD PCP - General Internal Medicine 02/08/1808/14 Dakota Hook DO PCP - General Internal Medicine 12/04/21 documented as of this encounter
--- OUTSIDE RECORDS SUMMARY | 2024-12-21 14:52 | XMS_ITS | Clinical Summary ---
Author Organization [facility] Address [address] [place] [address] Care Team Providers Care Medical Clerical Assistant Name Role Phone Dakota Hook DO Primary [...] H RISK PATIENTS (#1) [phone] Care Teams Medical Clerical Assistant Relationship Specialty Start Date End Date Dakota Hook DO PCP - General Internal Medicine 12/04/21
--- OUTSIDE RECORDS SUMMARY | 2024-12-21 14:52 | XMS_ITS | Encounter Summary ---
Author Organization [facility] Address [address] [place] [address] Care Team Providers Care Painting Contractor Name Role Phone [place]-Radha Mckenzie MD Primary Care Provider Unavailable Dakota Hook DO Primary Care Provider Unavaila ble Encounter Details Date Type Department Care Team Description 03/25/2021 Pt. Non Urgent Medic al Question Adult Medicine - [address] [address] Yamila Butler PA-C Social History Tobacco Use [...] to update I will be going to [facility] urgent care tomorrow following a fall I had on03/24/21 I dislocated my LEFT knee and it severely swollen and I can not stand on it. documented in this encounter Plan of Treatment Not on file documented as of this encounter Visit Diagnoses Not on filedocumented in this encounter Care Teams Painting Contractor Relationship Specialty Start Date End Date [place]-Radha Mckenzie MD PCP - General Internal Medicine 02/08/1808/14 Dakota Hook DO PCP - General Internal Medicine 12/04/21 documented as of this encounter
--- OUTSIDE RECORDS SUMMARY | 2024-12-21 14:52 | XMS_ITS | Encounter Summary ---
Author Organization [facility] Address [address] [place] [address] Care Team Providers Care Photographic Laboratory Supervisor Name Role Phone Radha Hoover MD Primary Care Provider Unavailable Dakota Hook DO Primary Care Provider Unavaila ble Reason for Visit * Reason Onset Date Comments er follow up 10/29/2020 Encounter Details Date Type Department Care Team Description 10/29/2020 Telephone Adult Medicine - [address] [address] Radha Hoover MD er follow up Social History Tobacco Use Types Packs/Day Years Used Date Smoking Tobacco: Never Smokeless Tobacco: Never Alcohol Use Standard Drinks/Week Comments No 0 (1 standard drink = 0.6 oz pur e alcohol) Sex Assigned at Date Recorded Female 02/25/2020 4:49 PM E DT documented as of this encounter Miscellaneous Notes * Telephone Encounter - Anastasiya Bhardwaj - 10/29/2020 3:08 PM EST Pt was seen at [facility] for concussion on 10/24 and 10/28. Has a follow up appt with Yamila Butler on 11/04. Please request notes documented in this encounter Plan of Treatment Not on file documented as of this encounter Visit Diagnoses Not on filedocumented in this encounter Care Teams Photographic Laboratory Supervisor Relationship Specialty Start Date End Date Radha Hoover MD PCP - General Internal Medicine 02/08/1808/14 Dakota Hook DO PCP - General Internal Medicine 12/04/21 documented as of this encounter
--- OUTSIDE RECORDS SUMMARY | 2024-12-21 14:53 | XMS_ITS | Encounter Summary ---
Author Organization [facility] Address [address] [place] [address] Care Team Providers Care Road Advisor Name Role Phone Radha Hoover MD Primary Care Provider Unavailable Dakota Hook DO Primary Care Provider Unavaila ble Encounter Details Date Type Department Care Team Description 04/29/2021 Rn Documentation Report Medical Records [address] [place] [address] Giles Urbano Social History Tobacco Use Types [...] on filedocumented in this encounter Care Teams Road Advisor Relationship Specialty Start Date End Date Radha Hoover MD PCP - General Internal Medicine 02/08/1808/14 Dakota Hook DO PCP - General Internal Medicine 12/04/21 documented as of this encounter
--- OUTSIDE RECORDS SUMMARY | 2024-12-21 14:53 | XMS_ITS | Encounter Summary ---
Author Organization [facility] Address [address] [place] [address] Care Team Providers Care Local Az Truck Driver Name Role Phone [place]-Radha Mckenzie MD Primary Care Provider Unavailable Dakota Hook DO Primary Care Provider Unavaila ble Reason for Visit * Reason Comments E-prescribe Rx Request Encounter Details Date Type Department Care Team Description 05/04/2021 Refill Adult Medicine - [address] [address] Yamila Butler PA-C E-prescribe Rx Request Social [...] on filedocumented in this encounter Care Teams Local Az Truck Driver Relationship Specialty Start Date End Date Jaye-Radha Mckenzie MD PCP - General Internal Medicine 02/08/1808/14 Dakota Hook DO PCP - General Internal Medicine 12/04/21 documented as of this encounter
== END 2024-12-21 14:16 | disposition home or self-care (01) ==
PROVIDERS: Visit Provider Counselor Mental Health
DX: F41.9 Anxiety disorder, unspecified (principal)
CPT/HCPCS: 90837

== ENCOUNTER 2025-01-17 09:12 | Outpatient (REF) | payer OTHER, SELFPAY ==
--- NOTE | ~2025-01-17 | FL_ITS ---
EXAMINATION: XR FLUOROSCOPY UPPER GI SERIES CLINICAL INFORMATION: Obesity, unspecified. Patient states no complaints. COMPARISON: None TECHNIQUE: Fluoroscopic air contrast upper GI examination was performed utilizing standard techniques with thin and thick barium and effervescent granules. Numerous spot images were obtained. Several fluoroscopic image hold cine sequences were also obtained. FINDINGS: UPPER GI SERIES: Lateral cine images of the oropharynx and hypopharynx demonstrate normal swallow mechanism with normal epiglottic inversion and soft palate elevation. No laryngeal penetration, glottic or subglottic aspiration identified. No nasopharyngeal reflux present. Hypopharyngeal structures appear normal without evidence of mass or diverticulum. There was no significant cricopharyngeal achalasia. Dual and single contrast images of the esophagus demonstrate normal caliber, contour, and mucosal pattern. No evidence of stricture, mass, or ulcerations identified. Esophageal peristalsis was normal. Tiny type I hiatus hernia. No significant gastroesophageal reflux was seen during the course of the examination and on reflux views. Dual contrast and single contrast images of the stomach demonstrated normal contour and mucosal pattern without evidence of mass, ulceration, or other abnormality. Contrast freely passed into the gastric antrum and duodenal bulb without delay. Single and air-contrast images of the duodenal bulb demonstrate no abnormality. The duodenal sweep has a normal appearance, course, and mucosal fold appearance. FLUOROSCOPY TIME: 2 minutes, 26 seconds Number of Spot Images:8 Number of cines obtained: 9 DOSE AREA PRODUCT: 2020 uGy-m2 (microgray-meter squared) FL/FL upper GI w air IMPRESSION: 1. Small type I hiatus hernia. 2. Otherwise normal examination. Electronically signed by: Gerardo Rhodes MD 01/17/2025 09:50 AM EDT
--- OUTSIDE RECORDS SUMMARY | 2025-01-17 10:49 | XMS_ITS | Clinical Summary ---
Author Organization Patient Business Ser [facility] Address [address] [place] [address] Care Team Providers Care Associate Principal Name Role Phone Raeannnena Rickyayo Primary Care Provider [phone] Surgical History Surgery Date Site/Laterality Comments KNEE ARTHROSCOPY Right PROCEDURE: [place] ARTHROSCOPY AID TX SPINE&/FX KNEE W/O FIXJ [...] age to complete this topic Care Teams Associate Principal Relationship Specialty Start Date End Date Dakota Hook DO PCP - General Internal Medicine 12/04/21
--- OUTSIDE RECORDS SUMMARY | 2025-01-17 10:49 | XMS_ITS | Encounter Summary ---
Author Organization [facility] Address [address] [place] [address] Care Team Providers Care Merchandise Marker Name Role Phone Kimberly-Radha Mceknzie MD Primary Care Provider Unavailable Dakota Hook DO Primary Care Provider Unavaila ble Reason for Visit * Reason Onset Date Comments Industrial Roofer Helper Feedback 11/06/2020 Orthopedics -Not es not complete Encounter Details Date Type Department Care Team Description 11/06/2020 Telephone Adult Medicine - [address] [address] Yamila Butler PA-C Industrial Roofer Helper Feedback (Orthopedics -Notes not complete) Social History [...] are complete. Thank you, Anastacia Orthopedic Navigator [facility] documented in this encounter Plan of Treatment Not on file documented as of this encounter Visit Diagnoses Not on filedocumented in this encounter Care Teams Merchandise Marker Relationship Specialty Start Date End Date Kimberly-Radha Mckenzie MD PCP - General Internal Medicine 02/08/1808/14 Dakota Hook DO PCP - General Internal Medicine 12/04/21 documented as of this encounter
--- OUTSIDE RECORDS SUMMARY | 2025-01-17 10:49 | XMS_ITS | Encounter Summary ---
Author Organization [facility] Address [address] [place] [address] Care Team Providers Care Mat Gauger Name Role Phone Radha Hoover MD Primary Care Provider Unavailable Dakota Hook DO Primary Care Provider Unavaila ble Encounter Details Date Type Department Care Team Description 04/29/2021 Computer Repairer Report Medical Records [address] [place] [address] Gilse Urbano Social History Tobacco Use Types Packs/Day [...] on filedocumented in this encounter Care Teams Mat Gauger Relationship Specialty Start Date End Date Radha Hoover MD PCP - General Internal Medicine 02/08/1808/14 Dakota Hook DO PCP - General Internal Medicine 12/04/21 documented as of this encounter
--- OUTSIDE RECORDS SUMMARY | 2025-01-17 10:49 | XMS_ITS | Encounter Summary ---
Author Organization [facility] Address [address] [place] [address] Care Team Providers Care Technical Services Rep Name Role Phone Dakota Hook DO Primary Care Provider Unavaila ble Reason for Visit * Reason Comments E-prescribe Rx Request Encounter Details Date Type Department Care Team Description 02/17/2023 Refill Adult Medicine - [address] [place] [address] Govind Maurer PA [address] [place] [address] E-prescribe Rx Request Social History Tobacco Use Types Packs/Day Years Used Date Smoking Tobacco: Never Smokeless Tobacco: Never Alcohol Use Standard Drinks/Week Comments No 0 (1 standard drink = 0.6 oz pur e alcohol) Sex Assigned at Date Recorded Female 02/25/2020 4:49 PM E DT documented as of this encounter Miscellaneous Notes * Telephone Encounter - Patricia Sorensen - 02/18/2023 9:29 AM EDT Patient would like script to be: E-PRESCRIBED/FAXED TO PHARMACY WHEN WAS THE PATIENT'S LAST APPOINTMENT IN ADULT MEDICINE? 05/25/22 WHEN WAS THE LAST TIME THE PATIENT SAW THEIR PCP? Same as above Does patient have an upcoming appointment? Yes 04/13/23 (THE MEDICATION REQUESTED IS ON THE MED [...] fax? N/A Patients current insurance carrier is: Payor: [employer] POS / Plan: PPO $35 [place] [id number] / ProductType: PPO [id number] documented in this encounter Plan of Treatment Not on file documented as of this encounter Visit Diagnoses Not on filedocumented in this encounter Care Teams Technical Services Rep Relationship Specialty Start Date End Date Dakota Hook DO PCP - General Internal Medicine 12/04/21 documented as of this encounter
--- OUTSIDE RECORDS SUMMARY | 2025-01-17 10:49 | XMS_ITS | Encounter Summary ---
Author Organization [facility] Address [address] [place] [address] Care Team Providers Care Coremaker Machine Name Role Phone Radha Hoover MD Primary Care Provider Unavailable Dakota Hook DO Primary Care Provider Unavaila ble Reason for Visit * Reason Onset Date Comments Error 04/24/2018 Encounter Details Date Type Department Care Team Description 04/24/2018 Telephone Physiatry - [address] [address] uJan J Ashley DO Error Social History Tobacco [...] on filedocumented in this encounter Care Teams Coremaker Machine Relationship Specialty Start Date End Date Radha Hoover MD PCP - General Internal Medicine 02/08/1808/14 Dakota Hook DO PCP - General Internal Medicine 12/04/21 documented as of this encounter
--- OUTSIDE RECORDS SUMMARY | 2025-01-17 10:49 | XMS_ITS | Encounter Summary ---
Author Organization [facility] Address [address] [place] [address] Care Team Providers Care Dishing Machine Operator Name Role Phone Radha Hoover MD Primary Care Provider Unavailable Dakota Hook DO Primary Care Provider Unavaila ble Encounter Details Date Type Department Care Team Description 02/27/2018 Release of Information Medical Records [address] [place] [id number] Abstract, Provider Social History Tobacco Use Types Packs/Day Years [...] on filedocumented in this encounter Care Teams Dishing Machine Operator Relationship Specialty Start Date End Date Radha Hoover MD PCP - General Internal Medicine 02/08/1808/14 Dakota Hook DO PCP - General Internal Medicine 12/04/21 documented as of this encounter
--- OUTSIDE RECORDS SUMMARY | 2025-01-17 10:49 | XMS_ITS | Encounter Summary ---
Author Organization [facility] Address [address] [place] [address] Care Team Providers Care Clinical Recruiter Name Role Phone Radha Hoover MD Primary Care Provider Unavailable Dakota Hook DO Primary Care Provider Unavaila ble Reason for Visit * Reason Onset Date Comments er follow up 10/29/2020 Encounter Details Date Type Department Care Team Description 10/29/2020 Telephone Adult Medicine - [address] [address] Radha Hoover MD er follow up Social [...] 3:08 PM EST Pt was seen at [facility] for concussion on 10/24 and 10/28. Has a follow up appt with Yamila Butler on 11/04. Please request notes documented in this encounter Plan of Treatment Not on file documented as of this encounter Visit Diagnoses Not on filedocumented in this encounter Care Teams Clinical Recruiter Relationship Specialty Start Date End Date Radha Hoover MD PCP - General Internal Medicine 02/08/1808/14 Dakota Hook DO PCP - General Internal Medicine 12/04/21 documented as of this encounter
--- OUTSIDE RECORDS SUMMARY | 2025-01-17 10:49 | XMS_ITS | Encounter Summary ---
Author Organization [facility] Address [address] [place] [address] Care Team Providers Care Application Project Leader Name Role Phone Radha Hoover MD Primary Care Provider Unavailable Dakota Hook DO Primary Care Provider Unavaila ble Reason for Visit * Reason Onset Date Comments er follow up 02/08/2018 Encounter Details Date Type Department Care Team Description 02/08/2018 Telephone Adult Medicine - [address] [address] Radha Hoover MD er follow up Social History Tobacco Use Types Packs/Day Years Used Date Smoking Tobacco: Never Assessed Sex Assigned at Date Recorded Female 02/25/2020 4:49 PM E DT documented as of this encounter Miscellaneous Notes * Telephone Encounter - Gisela Godoy - 02/08/2018 3:10 PM EDT ER follow-up appointment message Patients PCP: Radha Hoover When was patient seen at the ER: 03/09/2018 Which hospital was patient [facility] at?: [facility] What was the injury or problem the patient went to the ER for? anxiety If the patient was seen for an injury what as the DOI? N/A Were x-rays taken? Chest xrays Was lab work done? yes Were any other tests done? YES If yes, what tests? ekg documented in this encounter Plan of Treatment Not on file documented as of this encounter Visit Diagnoses Not on filedocumented in this encounter Care Teams Application Project Leader Relationship Specialty Start Date End Date [place]-Radha Mckenzie MD PCP - General Internal Medicine 02/08/1808/14 Dakota Hook DO PCP - General Internal Medicine 12/04/21 documented as of this encounter
== END 2025-01-17 09:13 | disposition home or self-care (01) ==
LOC: HO.XRAY 09:12
PROVIDERS: Visit Provider Surgery
DX: K21.9 Gastro-esophageal reflux disease without esophagitis (principal); E66.9 Obesity, unspecified; Z68.35 Body mass index [BMI] 35.0-35.9, adult
CPT/HCPCS: 74246

== ENCOUNTER → 2025-01-17 09:13 | Outpatient (BNV) | payer OTHER, SELFPAY | PROVIDERS: Visit Provider Radiology Diagnostic Radiology | DX: K44.9 Diaphragmatic hernia without obstruction or gangrene (principal) | CPT/HCPCS: 74246 ==

== ENCOUNTER 2025-01-25 08:24 | Outpatient (AMB) | payer OTHER, SELFPAY ==
--- OUTSIDE RECORDS SUMMARY | 2025-01-25 08:39 | XMS_ITS | Encounter Summary ---
Author Organization [facility] Address [address] [place] [address] Care Team Providers Care Construction Rep Name Role Phone Jaye-Radha Mckenzie MD Primary Care Provider Unavailable Dakota Hook DO Primary Care Provider Unavaila ble Reason for Visit * Reason Onset Date Comments TEST RESULTS 02/23/2018 Encounter Details Date Type Department Care Team Description 02/23/2018 Telephone Adult Medicine - [address] [address] Rox Aleman PA-C [address] [place] [id number] TEST RESULTS Social History Tobacco Use Types [...] advised of message below Rox Aleman PA-C [facility] Adult Med Floor Nurse ? Please call patient with normal results- normal knee xray documented in this encounter Plan of Treatment Not on file documented as of this encounter Visit Diagnoses Not on filedocumented in this encounter Care Teams Construction Rep Relationship Specialty Start Date End Date [place]-Radha Mckenzie MD PCP - General Internal Medicine 02/08/1808/14 Dakota Hook DO PCP - General Internal Medicine 12/04/21 documented as of this encounter
--- OUTSIDE RECORDS SUMMARY | 2025-01-25 08:39 | XMS_ITS | Encounter Summary ---
Author Organization [facility] Address [address] [place] [address] Care Team Providers Care Converting Operator Name Role Phone Radha Hoover MD Primary Care Provider Unavailable Dakota Hook DO Primary Care Provider Unavaila ble Encounter Details Date Type Department Care Team Description 04/01/2021 Java Grails Developer Report Medical Records [address] [place] [address] Constantin Yadav PA-C Social History Tobacco Use Types Packs/Day [...] on filedocumented in this encounter Care Teams Converting Operator Relationship Specialty Start Date End Date Radha Hoover MD PCP - General Internal Medicine 02/08/1808/14 Dakota Hook DO PCP - General Internal Medicine 12/04/21 documented as of this encounter
--- OUTSIDE RECORDS SUMMARY | 2025-01-25 08:39 | XMS_ITS | Clinical Summary ---
Author Organization Patient Business [facility] Address [address] [place] [address] Care Team Providers Care Administrative Support Associate Name Role Phone Monster Rickyayo Primary Care Provider [phone] Surgical History Surgery Date Site/Laterality Comments KNEE ARTHROSCOPY Right PROCEDURE: [place] ARTHROSCOPY AID [place] SPINE&/FX KNEE W/O FIXJ [...] age to complete this topic Care Teams Administrative Support Associate Relationship Specialty Start Date End Date Dakota Hook DO PCP - General Internal Medicine 12/04/21
--- OUTSIDE RECORDS SUMMARY | 2025-01-25 08:39 | XMS_ITS | Encounter Summary ---
Author Organization [facility] Address [address] [place] [address] Care Team Providers Care Mica Sizer Name Role Phone [place]-Radha Mckenzie MD Primary Care Provider Unavailable Dakota Hook DO Primary Care Provider Unavaila ble Reason for Visit * Reason Onset Date Comments French Drawer Feedback 11/06/2020 Orthopedics -Not es not complete Encounter Details Date Type Department Care Team Description 11/06/2020 Telephone Adult Medicine - [address] [address] Yamila Butler PA-C French Drawer Feedback (Orthopedics -Notes not complete) Social History [...] are complete. Thank you, Anastacia Orthopedic Navigator [facility] documented in this encounter Plan of Treatment Not on file documented as of this encounter Visit Diagnoses Not on filedocumented in this encounter Care Teams Mica Sizer Relationship Specialty Start Date End Date [place]-Radha Mckenzie MD PCP - General Internal Medicine 02/08/1808/14 Dakota Hook DO PCP - General Internal Medicine 12/04/21 documented as of this encounter
--- OUTSIDE RECORDS SUMMARY | 2025-01-25 08:39 | XMS_ITS | Encounter Summary ---
Author Organization [facility] Address [address] [place] [address] Care Team Providers Care Control Chemist Name Role Phone Dakota Hook DO Primary Care Provider Unavaila ble Reason for Visit * Reason Comments E-prescribe Rx Request Encounter Details Date Type Department Care Team Description 02/17/2023 Refill Adult Medicine - [place] [address] [place] [address] Govind aMurer PA [address] [place] [address] E-prescribe Rx Request Social History Tobacco Use [...] Payor: [employer] POS / Plan: PPO $[id number] / ProductType: PPO [id number] documented in this encounter Plan of Treatment Not on file documented as of this encounter Visit Diagnoses Not on filedocumented in this encounter Care Teams Control Chemist Relationship Specialty Start Date End Date Dakota Hook DO PCP - General Internal Medicine 12/04/21 documented as of this encounter
--- OUTSIDE RECORDS SUMMARY | 2025-01-25 08:39 | XMS_ITS | Encounter Summary ---
Author Organization [facility] Address [address] [place] [address] Care Team Providers Care Hardware Installation Coordinator Name Role Phone Radha Hoover MD Primary Care Provider Unavailable Dakota Hook DO Primary Care Provider Unavaila ble Reason for Visit * Reason Onset Date Comments er follow up 02/08/2018 Encounter Details Date Type Department Care Team Description 02/08/2018 Telephone Adult Medicine - [address] [address] Radha Hoover MD er follow up Social [...] 03/09/2018 Which hospital was patient [facility] at?: [facility] What was the injury or problem [...] on filedocumented in this encounter Care Teams Hardware Installation Coordinator Relationship Specialty Start Date End Date [place]-Radha Mckenzie MD PCP - General Internal Medicine 02/08/1808/14 Dakota Hook DO PCP - General Internal Medicine 12/04/21 documented as of this encounter
--- OUTSIDE RECORDS SUMMARY | 2025-01-25 08:39 | XMS_ITS | Encounter Summary ---
Author Organization [facility] Address [address] [place] [address] Care Team Providers Care Can Handler Name Role Phone Radha Hoover MD Primary Care Provider Unavailable Dakota Hook DO Primary Care Provider Unavaila ble Encounter Details Date Type Department Care Team Description 08/01/2020 Orders Only Medical Records [address] [place] [address] Yamila Butler PA-C Social History Tobacco Use [...] on filedocumented in this encounter Care Teams Can Handler Relationship Specialty Start Date End Date Radha Hoover MD PCP - General Internal Medicine 02/08/1808/14 Dakota Hook DO PCP - General Internal Medicine 12/04/21 documented as of this encounter
--- NOTE | 2025-01-25 12:42 | MHC.OFFVISWM ---
VS Expanded 01/25/25 12:49 Height 5 ft 2 in Weight 188 lb BMI 34.4 Body Fat % 42.3 Body Fat Mass 79.5 Fat Free Mass 108.6 Visceral Fat Rating 16 Body Water % 39.6 Body Water Mass 74.4 Basal Metabolic Rate/Score 1,446 Intake Visit Reasons: TV Pre Op LSG 02/05/25 Allergies amoxicillin Allergy (Mild, Verified 01/25/25 12:43) Hives Penicillins Allergy (Mild, Verified 01/25/25 12:43) Hives apples Allergy (Mild, Uncoded 01/25/25 12:43) mouth gets numb and tingles Medication List - Last Reconciled 01/25/25 by Raymond Martinez MD cholecalciferol (vitamin D3) 125 mcg PO DAILY hydroxyzine HCl 5 mg PO Q8H PRN mecobalamin (vitamin B12) 1,000 mcg sublingual DAILY ondansetron 4 mg PO Q12H pantoprazole 40 mg PO DAILY polyethylene glycol 3350 17 grams PO DAILY sucralfate 10 mL PO BID thiamine HCl (vitamin B1) 100 mg PO DAILY vitamin A palmitate 10,000 units PO DAILY HPI HPI TV Pre Op LSG 02/05/25: Details: Start time: 12.35pm, End time: 1.01pm ?I spent 21 minutes speaking with the patient on the phone plus an additional 5 minutes reviewing and updating records for a total of 26 minutes HPI Comments Details: Overall weight: 24.8lbs, or 11.65% TBWL Is doing 3 Herbalife shakes (1 to 2.5 scoops each in 8oz almond milk) and one meal (7 forkfuls each) Exercise: is doing the stationary bike x4/week [facility] Medical History (Updated 01/22/25 @ 09:27 by Saige Rivera RN) Arthritis Anxiety Depression GERD (gastroesophageal reflux disease) DJD (degenerative joint disease) Surgical History (Updated 01/22/25 @ 09:27 by Saige Rivera RN) History of esophagogastroduodenoscopy (EGD) (11/07/24) Hx of arthroscopic knee surgery Family History Mother Hypertension Back problem Brother No problems noted. Social History Are you a primary anesthesiologist and critical care to a significant other at home: Yes (4 children) Do you presently have visiting nurse or other home services: No Alcohol intake: current Alcohol intake frequency: holidays/special occasions only Patient Tobacco Use Status: Former Tobacco user Telehealth Telehealth Telehealth Platform: Telephone Location of provider rendering services: practice address Location of patient: address on file Patient Identification confirmed using: Name, : Yes Telehealth method: voice only Patient verbally consented to treatment: Yes Patient verbally consented to billing insurance company: Yes Patient informed of any privacy concerns related to visit: Yes Minutes spent on Phone/Video with Pt.: 26 Assessment & Plan Assessment & Plan (1) Obesity: Code(s): E66.9 - Obesity, unspecified Category: Medical Qualifiers: Obesity type: due to excess calories Obesity classification: adult class 2 (BMI 35 - 39.9) Serious obesity comorbidity presence: without serious comorbidity Body mass index: BMI 37.0-37.9 Qualified Code(s): E66.812 - Obesity, class 2; E66.09 - Other obesity due to excess calories; Z68.37 - Body mass index [BMI] 37.0-37.9, adult Plan: 1. Plan for lap sleeve gastrectomy including upper GI endoscopy. All tests has been completed and reviewed and the patient is cleared for the surgery. ?If diaphragmatic or ventral hernias are present at time of surgery, these will be repaired laparoscopically as well. Risks and complications were discussed in detail including possible conversion to an open procedure, anastomotic leak, bleeding requiring transfusion, small bowel obstruction, , DVT and pulmonary embolism, cardiac, or pulmonary complications, as watermelon inspector complications such as anastomotic ulcer, insufficient weight loss and vitamin deficiencies. I emphasized the importance of close follow-up, adherence to instructions and good communication. So far she has proven to be an excellent communicator and very compliant with all our directions accomplishing a great weight loss. I believe that she is an excellent candidate and she is ready. 2. Preop prescriptions were provided and explained the purpose of each one. Need to be purchased preop. Start Pantoprazole now as you get it from the pharmacy, 1 pill per day. Sucralfate and Zofran are for after surgery as needed. 3. Bowel prep: please do 7 packets ?of Miralax mixing each one with a an 8oz glass of water, crystal light, gatorade zero, or propel ?on 02/03/25 and the same amount on 02/04/25. The Miralax you begin with one packet at a time in 8oz water or crystal light, gatorade zero, or propel ?as early in the day as you can and you do them back to back until you finish them. Continue the protein shakes during ?the bowel prep. 4. Needs to purchase 1oz medicine cups . 5. Needs to purchase Children's liquid Tylenol for postop pain control. 6. Avoid aspirin, motrin, Advil, Aleve, Meloxicam, Excedrin, Ibuprofen, Naproxyn. Tylenol is OK. 7. She needs to purchase the Celebrate multivitamins from the hospital's gift shop, chewable or pills whatever you prefer. 8. Will do basic preop blood work-up any day on 01/29/2025 fasting for 12 hours and is scheduled to see the Anesthesiologist prior to the day of surgery. 9. Importance of adherence to postop folllow-up and recommendations was underscored and she understands that. 10. Stop food and bars as of Tuesday01/28/2025 and create an aggressive meal plan with the [employer] ruthann and send me a screenshot of the plan you will create 11. No soups, broths or V8 12. The patient's?medical?history has been reviewed and they are considered low risk for post op DVT and therefore DVT prophylaxis is not considered necessary. Travel after surgery was reviewed. The patient has not disclosed any travel plans during the first 30 days after surgery and they have been advised that within the first 30 days after surgery any bus, plane, train or car travel over 2 hours in duration is contraindicated due to the possibility of developing blood clots from immobility. Any travel, needs to include periods of ambulation of 10 minutes in duration every 2 hours.? Patient was instructed to discuss any plans for travel during this period with their bariatric surgeon.? 13. Please take at the day of surgery the following medications: NONE 14. Stop any control pills and don't use them for one month after surgery 15. Absolutely no smoking or vaping, or marijuana until the surgery and for at least the first 4 weeks. Only nicotine patches are allowed. 16. Send me weight measurements on Tuesday01/29/25 and then on Tuesday02/05/25, the day of surgery before you go to the hospital. 17. Avoid any steroids by mouth for any reason. Let me know if someone prescribes them to you 18. These instructions supersede anything else you read in the handbook, anything you watched in videos or classes or you were told by any other provider. If there is any conflict, you follow the above instructions and nothing else. Orders: Orders Comprehensive Met. Panel Today E66.09 - Other obesity due to excess calories, E66.812 - Obesity, class 2, Z68.34 - Body mass index [BMI] 34.0-34.9, adult, Z68.37 - Body mass index [BMI] 37.0-37.9, adult Prothrombin Time INR Today E66.09 - Other obesity due to excess calories, E66.812 - Obesity, class 2, Z68.34 - Body mass index [BMI] 34.0-34.9, adult, Z68.37 - Body mass index [BMI] 37.0-37.9, adult Partial Thromboplastin Time Today E66.09 - Other obesity due to excess calories, E66.812 - Obesity, class 2, Z68.34 - Body mass index [BMI] 34.0-34.9, adult, Z68.37 - Body mass index [BMI] 37.0-37.9, adult C Reactive Protein Today E66.09 - Other obesity due to excess calories, E66.812 - Obesity, class 2, Z68.34 - Body mass index [BMI] 34.0-34.9, adult, Z68.37 - Body mass index [BMI] 37.0-37.9, adult Lipid Panel Today E66.09 - Other obesity due to excess calories, E66.812 - Obesity, class 2, Z68.34 - Body mass index [BMI] 34.0-34.9, adult, Z68.37 - Body mass index [BMI] 37.0-37.9, adult Insulin Today E66.09 - Other obesity due to excess calories, E66.812 - Obesity, class 2, Z68.34 - Body mass index [BMI] 34.0-34.9, adult, Z68.37 - Body mass index [BMI] 37.0-37.9, adult TSH reflex Free T4 Today E66.09 - Other obesity due to excess calories, E66.812 - Obesity, class 2, Z68.34 - Body mass index [BMI] 34.0-34.9, adult, Z68.37 - Body mass index [BMI] 37.0-37.9, adult Type and Screen Today E66.09 - Other obesity due to excess calories, E66.812 - Obesity, class 2, Z68.34 - Body mass index [BMI] 34.0-34.9, adult, Z68.37 - Body mass index [BMI] 37.0-37.9, adult Hemoglobin A1c Today E66.09 - Other obesity due to excess calories, E66.812 - Obesity, class 2, Z68.34 - Body mass index [BMI] 34.0-34.9, adult, Z68.37 - Body mass index [BMI] 37.0-37.9, adult Complete Blood Count Auto Diff Today E66.09 - Other obesity due to excess calories, E66.812 - Obesity, class 2, Z68.34 - Body mass index [BMI] 34.0-34.9, adult, Z68.37 - Body mass index [BMI] 37.0-37.9, adult Medications: New ondansetron 4 mg PO Q12H 20 tabs 0RF nausea and vomiting R11.0 - Nausea pantoprazole 40 mg PO DAILY 90 tabs 0RF K21.9 - Gastro-esophageal reflux disease without esophagitis sucralfate 10 mL PO BID 600 mL 2RF K21.9 - Gastro-esophageal reflux disease without esophagitis polyethylene glycol 3350 Mix each measuring cup with 8oz of water, Crystal light, or Gatorade zero, or Propel and do 7 measuring cups on 02/03/25 and another 7 measuring cups on 02/04/25 17 grams PO DAILY 238 grams 0RF Z01.818 - Encounter for other preprocedural examination
[2025-01-25 12:49] VITALS: BMI 34.4
== END 2025-01-25 13:02 | disposition home or self-care (01) ==
LOC: HO.HBS 08:24
PROVIDERS: Visit Provider Surgery
DX: E66.812 Obesity, class 2 (principal); Z68.37 Body mass index [BMI] 37.0-37.9, adult
CPT/HCPCS: 99499

== ENCOUNTER 2025-01-29 08:44 | Outpatient (REF) | payer OTHER, SELFPAY ==
--- OUTSIDE RECORDS SUMMARY | 2025-01-29 09:13 | XMS_ITS | Encounter Summary ---
Author Organization [facility] Address [address] [place] [address] Care Team Providers Care Electric Gas Appliances Demonstrator Name Role Phone Radha Hoover MD Primary Care Provider Unavailable Dakota Hook DO Primary Care Provider Unavaila ble Encounter Details Date Type Department Care Team Description 08/14/2020 Pt. Non Urgent Medic al Question Adult Medicine - [address] [address] Yamila Butler PA-C Social History Tobacco Use [...] on filedocumented in this encounter Care Teams Electric Gas Appliances Demonstrator Relationship Specialty Start Date End Date [place]-Radha Mckenzie MD PCP - General Internal Medicine 02/08/1808/14 Dakota Hook DO PCP - General Internal Medicine 12/04/21 documented as of this encounter
--- OUTSIDE RECORDS SUMMARY | 2025-01-29 09:13 | XMS_ITS | Encounter Summary ---
Author Organization [facility] Address [address] [place] [address] Care Team Providers Care Mainframe Programmer Name Role Phone Radha Hoover MD Primary Care Provider Unavailable Dakota Hook DO Primary Care Provider Unavaila ble Encounter Details Date Type Department Care Team Description 04/01/2021 Business Office Technology Instructor Report Medical Records [address] [place] [address] Constantin Yadav PA-C Social History Tobacco Use [...] on filedocumented in this encounter Care Teams Mainframe Programmer Relationship Specialty Start Date End Date Radha Hoover MD PCP - General Internal Medicine 02/08/1808/14 Dakota Hook DO PCP - General Internal Medicine 12/04/21 documented as of this encounter
--- OUTSIDE RECORDS SUMMARY | 2025-01-29 09:13 | XMS_ITS | Encounter Summary ---
Author Organization [facility] Address [address] [place] [address] Care Team Providers Care Supervisor Soldering Name Role Phone Dakota Hook DO Primary Care Provider Unavaila ble Reason for Visit * Reason Comments E-prescribe Rx Request Encounter Details Date Type Department Care Team Description 02/17/2023 Refill Adult Medicine - [address] [place] [address] Govind Maurer PA [address] [place] [address] E-prescribe Rx Request Social History Tobacco Use [...] Payor: HALIMA/AMA POS / Plan: PPO $35 VANDALIA [id number] / ProductType: PPO [id number] documented in this encounter Plan of Treatment Not on file documented as of this encounter Visit Diagnoses Not on filedocumented in this encounter Care Teams Supervisor Soldering Relationship Specialty Start Date End Date Dakota Hook DO PCP - General Internal Medicine 12/04/21 documented as of this encounter
--- OUTSIDE RECORDS SUMMARY | 2025-01-29 09:13 | XMS_ITS | Encounter Summary ---
Author Organization [facility] Address [address] [place] [address] Care Team Providers Care Professor Of Vegetable Science Name Role Phone [place]-Radha Mckenzie MD Primary Care Provider Unavailable Dakota Hook DO Primary Care Provider Unavaila ble Reason for Visit * Reason Comments E-prescribe Rx Request Encounter Details Date Type Department Care Team Description 05/04/2021 Refill Adult Medicine - [address] [address] Yamila Butler PA-C E-prescribe Rx Request Social [...] on filedocumented in this encounter Care Teams Professor Of Vegetable Science Relationship Specialty Start Date End Date [place]-Radha Mckenzie MD PCP - General Internal Medicine 02/08/1808/14 Dakota Hook DO PCP - General Internal Medicine 12/04/21 documented as of this encounter
--- OUTSIDE RECORDS SUMMARY | 2025-01-29 09:13 | XMS_ITS | Encounter Summary ---
Author Organization [facility] Address [address] [place] [address] Care Team Providers Care Stock Preparation Supervisor Name Role Phone Radha Hoover MD Primary Care Provider Unavailable Dakota Hook DO Primary Care Provider Unavaila ble Encounter Details Date Type Department Care Team Description 08/01/2020 Orders Only Medical Records [address] [place] [address] Yamila Butler PA-C Social History Tobacco Use [...] on filedocumented in this encounter Care Teams Stock Preparation Supervisor Relationship Specialty Start Date End Date Radha Hoover MD PCP - General Internal Medicine 02/08/1808/14 Dakota Hook DO PCP - General Internal Medicine 12/04/21 documented as of this encounter
--- OUTSIDE RECORDS SUMMARY | 2025-01-29 09:13 | XMS_ITS | Encounter Summary ---
Author Organization [facility] Address [address] [place] [address] Care Team Providers Care Extract Wringer Name Role Phone Radha Hoover MD Primary Care Provider Unavailable Dakota Hook DO Primary Care Provider Unavaila ble Encounter Details Date Type Department Care Team Description 02/27/2018 Release of Information Medical Records [address] [place] [address] Abstract, Provider Social History Tobacco Use Types [...] on filedocumented in this encounter Care Teams Extract Wringer Relationship Specialty Start Date End Date Radha Hoover MD PCP - General Internal Medicine 02/08/1808/14 Dakota Hook DO PCP - General Internal Medicine 12/04/21 documented as of this encounter
--- OUTSIDE RECORDS SUMMARY | 2025-01-29 09:13 | XMS_ITS | Clinical Summary ---
Author Organization [facility] Address [address] [place] [address] Care Team Providers Care Manager Group Home Name Role Phone Raeannnena Rickyayo Primary Care Provider [phone] Surgical History Surgery Date Site/Laterality Comments KNEE ARTHROSCOPY Right PROCEDURE: SD ARTHROSCOPY AID TX SPINE&/FX KNEE W/O FIXJ [...] season) 2024 03/09/2022, 09/28/2021, 08/31/2021 Influenza Vaccine (Season Ended) 2025 DTaP,Tdap,and Td Vaccines (2 - Td or [...] age to complete this topic Meningococcal B Vaccine Aged Out No l onger eligible based on patient's age to complete [...] age to complete this topic Care Teams Manager Group Home Relationship Specialty Start Date End Date Dakota Hook DO PCP - General Internal Medicine 12/04/21
--- OUTSIDE RECORDS SUMMARY | 2025-01-29 09:13 | XMS_ITS | Encounter Summary ---
Author Organization [facility] Address [address] [place] [address] Care Team Providers Care Printing Machine Mechanic Name Role Phone [place]-Radha Mckenzie MD Primary Care Provider Unavailable Dakota Hook DO Primary Care Provider Unavaila ble Reason for Visit * Reason Onset Date Comments Fisher Reef Net Feedback 11/06/2020 Orthopedics -Not es not complete Encounter Details Date Type Department Care Team Description 11/06/2020 Telephone Adult Medicine - [address] [address] Yamila Butler PA-C [place] [employer] Net Feedback (Orthopedics -Notes not complete) Social History [...] are complete. Thank you, Anastacia Orthopedic Navigator [facility] documented in this encounter Plan of Treatment Not on file documented as of this encounter Visit Diagnoses Not on filedocumented in this encounter Care Teams Printing Machine Mechanic Relationship Specialty Start Date End Date [place]-Radha Mckenzie MD PCP - General Internal Medicine 02/08/1808/14 Dakota Hook DO PCP - General Internal Medicine 12/04/21 documented as of this encounter
--- OUTSIDE RECORDS SUMMARY | 2025-01-29 09:13 | XMS_ITS | Encounter Summary ---
Author Organization [facility] Address [address] [place] [address] Care Team Providers Care Cash Poster Name Role Phone Radha Hoover MD Primary Care Provider Unavailable Dakota Hook DO Primary Care Provider Unavaila ble Reason for Visit * Reason Onset Date Comments er follow up 02/08/2018 Encounter Details Date Type Department Care Team Description 02/08/2018 Telephone Adult Medicine - [address] [address] Radha Hoover MD er follow up Social [...] 03/09/2018 Which hospital was patient seen at?: [facility] What was the injury or problem the [...] on filedocumented in this encounter Care Teams Cash Poster Relationship Specialty Start Date End Date [place]-Radha Mckenzie MD PCP - General Internal Medicine 02/08/1808/14 Dakota Hook DO PCP - General Internal Medicine 12/04/21 documented as of this encounter
[2025-01-29 09:17] LABS: MANUAL DIFF FLAG NO
[2025-01-29 09:30] LABS: Basophils Percent Auto 0.4 % (0-2); Eosinophils Absolute Auto 0.1 X10*3/uL (0.0-0.4); Eosinophils Percent Auto 1.3 % (0-4); Hematocrit 37.9 % (37.0-47.0); Hemoglobin 12.9 g/dl (12.0-16.0); Imm Gran Abs Auto 0.03 X10*3/uL (0.00-0.03); Imm Gran Pct Auto 0.3 % (0.0-0.4); Lymphocytes Absolute Auto 2.5 X10*3/uL (1.2-4.9); Lymphocytes Percent Auto 27.2 % (20-40); Mean Corpuscular Volume 85.2 fL (80.0-98.0); Mean Platelet Volume 9.2 fL (9.4-12.3); Monocytes Absolute Auto 0.6 X10*3/uL (0.1-1.2); Neutrophils Absolute Auto 5.7 x10*3/uL (2.0-8.3); Neutrophils Percent Auto 63.8 % (45-73); Platelet Count 249 X10*3/uL (160-400); Red Blood Count 4.45 X10*6/uL (4.20-5.50); Red Cell Distribution Width 12.7 % (11.0-16.0)
[2025-01-29 09:51] LABS: Estimated Average Glucose 94 mg/dL; Hemoglobin A1C 104.4672 umol/L; Hemoglobin A1c % 4.9 % (<6.0); Total Hemoglobin (HGBA1C) 3462.6298 umol/L
[2025-01-29 09:54] LABS: INTERNATIONAL NORM RATIO 1.1 (0.9-1.1); Prothrombin Time 12.5 SEC (10.9-12.4)
[2025-01-29 09:56] LABS: Partial Thromboplastin Time 36.2 SEC (26.0-36.8)
[2025-01-29 10:21] LABS: Alanine Aminotransferase 7 U/L (0-31); Albumin Level 4.1 g/dL (3.5-5.0); Alkaline Phosphatase 64 U/L (39-117); Anion Gap 13 (12-20); Aspartate Amino Transferase 20 U/L (5-31); Bilirubin Total 0.6 mg/dL (0.0-1.0); Blood Urea Nitrogen 6 mg/dL (9-16); C Reactive Protein 1.13 mg/dL (< or = 0.50); Calcium 9.4 mg/dL (8.4-10.2); Carbon Dioxide 22 mmol/L (22-29); Chloride 106 mmol/L (96-108); Cholesterol 134 mg/dL (<200); Estimated Glomerular Filt Rate > 60; Glucose Random 81 mg/dL (60-115); HDL Cholesterol 33 mg/dL (>40); LDL Cholesterol Calculated 77 mg/dL (<100); Sodium 137 mmol/L (135-145); Total Protein 7.2 g/dL (6.5-8.0); Triglycerides 120 mg/dL (<150)
[2025-01-29 10:48] LABS: TSH reflex Free T4 1.47 uIU/mL (0.32-4.0)
[2025-01-29 12:07] LABS: Insulin 5 uU/mL (2-29)
== END 2025-01-29 08:45 | disposition home or self-care (01) ==
LOC: HO.LAB 08:44
PROVIDERS: Surgery; Visit Provider Student in an Organized Health Care Education/Training Program
DX: E66.812 Obesity, class 2 (principal); E66.09 Other obesity due to excess calories; Z68.37 Body mass index [BMI] 37.0-37.9, adult; Z68.34 Body mass index [BMI] 34.0-34.9, adult
CPT/HCPCS: 36415; 80053; 80061; 83036; 83525; 84443; 85025; 85610; 85730; 86140

== ENCOUNTER 2025-02-05 07:52 | Inpatient (IN) | payer OTHER, SELFPAY ==
[2025-01-22 09:30] VITALS: BMI 34.0
[2025-02-05] VITALS (21 sets, daily range): BP systolic 102–137; BP diastolic 62–87; PULSE 79–127; RESP 14–20; TEMP 36.2–37.2; O2SAT 94–100; BMI 36.6
--- OUTSIDE RECORDS SUMMARY | 2025-02-05 07:58 | XMS_ITS | Encounter Summary ---
Author Organization [facility] Address [address] [place] [address] Care Team Providers Care Gristmiller Name Role Phone Radha Hoover MD Primary Care Provider Unavailable Dakota Hook DO Primary Care Provider Unavaila ble Encounter Details Date Type Department Care Team Description 02/27/2018 Release of Information Medical Records [address] [place] [address] Abstract, Provider Social History Tobacco Use Types [...] on filedocumented in this encounter Care Teams Gristmiller Relationship Specialty Start Date End Date Radha Hoover MD PCP - General Internal Medicine 02/08/1808/14 Dakota Hook DO PCP - General Internal Medicine 12/04/21 documented as of this encounter
--- OUTSIDE RECORDS SUMMARY | 2025-02-05 07:58 | XMS_ITS | Encounter Summary ---
Author Organization [facility] Address [address] [place] [address] Care Team Providers Care Chief Of Staff Doctor Name Role Phone Radha Hoover MD Primary Care Provider Unavailable Dakota Hook DO Primary Care Provider Unavaila ble Reason for Visit * Reason Onset Date Comments er follow up 02/08/2018 Encounter Details Date Type Department Care Team Description 02/08/2018 Telephone Adult Medicine - [address] [address] Radha Hoover MD er follow up Social [...] 03/09/2018 Which hospital was patient seen at?: [facility] What was the injury or problem the [...] on filedocumented in this encounter Care Teams Chief Of Staff Doctor Relationship Specialty Start Date End Date [place]-Radha Mckenzie MD PCP - General Internal Medicine 02/08/1808/14 Dakota Hook DO PCP - General Internal Medicine 12/04/21 documented as of this encounter
--- OUTSIDE RECORDS SUMMARY | 2025-02-05 07:58 | XMS_ITS | Encounter Summary ---
Author Organization [facility] Address [address] [place] [address] Care Team Providers Care Clinical Operations Consultant Name Role Phone [place]-Radha Mckenzie MD Primary Care Provider Unavailable Dakota Hook DO Primary Care Provider Unavaila ble Reason for Visit * Reason Onset Date Comments Build And Deployment Engineer Feedback 11/06/2020 Orthopedics -Not es not complete Encounter Details Date Type Department Care Team Description 11/06/2020 Telephone Adult Medicine - [address] [address] Yamila Butler PA-C Build And Deployment Engineer Feedback (Orthopedics -Notes not complete) Social History [...] complete. Thank you, Anastacia Orthopedic Navigator [facility] documented in this encounter Plan of Treatment Not on file documented as of this encounter Visit Diagnoses Not on filedocumented in this encounter Care Teams Clinical Operations Consultant Relationship Specialty Start Date End Date [place]-Radha Mckenzie MD PCP - General Internal Medicine 02/08/1808/14 Dakota Hook DO PCP - General Internal Medicine 12/04/21 documented as of this encounter
--- OUTSIDE RECORDS SUMMARY | 2025-02-05 07:58 | XMS_ITS | Encounter Summary ---
Author Organization [facility] Address [address] [place] [address] Care Team Providers Care High School Assistant Principal Name Role Phone Dakota Hook DO Primary Care Provider Unavaila ble Reason for Visit * Reason Comments E-prescribe Rx Request Encounter Details Date Type Department Care Team Description 02/17/2023 Refill Adult Medicine - [place] [address] [place] [address] Govind Maurer PA [address] [place] [address] E-prescribe Rx Request Social History Tobacco Use [...] Payor: HALIMA/AMA POS / Plan: PPO $35 [place] [id number] / ProductType: PPO [id number] documented in this encounter Plan of Treatment Not on file documented as of this encounter Visit Diagnoses Not on filedocumented in this encounter Care Teams High School Assistant Principal Relationship Specialty Start Date End Date Dakota Hook DO PCP - General Internal Medicine 12/04/21 documented as of this encounter
--- OUTSIDE RECORDS SUMMARY | 2025-02-05 07:58 | XMS_ITS | Encounter Summary ---
Author Organization [facility] Address [address] [place] [address] Care Team Providers Care Diagrammer Name Role Phone [place]-Radha Mckenzie MD Primary Care Provider Unavailable Dakota Hook DO Primary Care Provider Unavaila ble Encounter Details Date Type Department Care Team Description 03/25/2021 Pt. Non Urgent Medic al Question Adult Medicine - [address] [address] Yamila Butler PA-C Social History Tobacco Use [...] to update I will be going to [facility] urgent care tomorrow following a fall I had on03/24/21 I dislocated my LEFT knee and it severely swollen and I can not stand on it. documented in this encounter Plan of Treatment Not on file documented as of this encounter Visit Diagnoses Not on filedocumented in this encounter Care Teams Diagrammer Relationship Specialty Start Date End Date [place]-Radha Mckenzie MD PCP - General Internal Medicine 02/08/1808/14 Dakota Hook DO PCP - General Internal Medicine 12/04/21 documented as of this encounter
--- OUTSIDE RECORDS SUMMARY | 2025-02-05 07:58 | XMS_ITS | Encounter Summary ---
Author Organization [facility] Address [address] [place] [address] Care Team Providers Care Rn Radiology Name Role Phone Radha Hoover MD Primary Care Provider Unavailable Dakota Hook DO Primary Care Provider Unavaila ble Encounter Details Date Type Department Care Team Description 04/01/2021 Jig Builder Report Medical Records [address] [place] [address] Constantin Yadav PA-C Social History Tobacco Use [...] on filedocumented in this encounter Care Teams Rn Radiology Relationship Specialty Start Date End Date Radha Hoover MD PCP - General Internal Medicine 02/08/1808/14 Dakota Hook DO PCP - General Internal Medicine 12/04/21 documented as of this encounter
--- OUTSIDE RECORDS SUMMARY | 2025-02-05 07:58 | XMS_ITS | Clinical Summary ---
Author Organization [facility] Address [address] [place] [address] Care Team Providers Care Senior Office Support Assistant Sosa Name Role Phone Dakota Hook DO Primary [...] (2022-11 4 season) 2024 03/09/2022, 09/28/2021, 08/31/2021 BMI CHECK/ADVISE 10/24/2024 01/14/2022, 09/2021, 07/03/2020, Additional history exists DEPRESSION SCREENING/FOLLOWUP 10/24/2024, 07/15/2023, 06/08/2023, Additional history exists SOCIAL NEEDS SCREENING 10/24/2024 INFLUENZA (Season Ended) 2025 07/03/2020 (Refu sed) BASELINE HEALTH EXAM 18-39 07/03/2025 07/03/2020, CHOLESTEROL SCREENING 07/03/2025 07/03/2020 DTAP/TDAP/TD (2 - Td or Tdap) 09/23/2030 09/23/2020 PNEUMOCOCCAL VACCINE FOR HIG H RISK PATIENTS (#1) 2060 Care Teams Senior Office Support Assistant Sosa Relationship Specialty Start Date End Date Dakota Hook DO PCP - General Internal Medicine 12/04/21
--- OUTSIDE RECORDS SUMMARY | 2025-02-05 07:58 | XMS_ITS | Encounter Summary ---
Author Organization [facility] Address [address] [place] [address] Care Team Providers Care Public Service Director Name Role Phone Radha Hoover MD Primary Care Provider Unavailable Dakota Hook DO Primary Care Provider Unavaila ble Encounter Details Date Type Department Care Team Description 08/01/2020 Orders Only Medical Records [address] [place] [id number] Yamila Butler PA-C Social History Tobacco Use [...] on filedocumented in this encounter Care Teams Public Service Director Relationship Specialty Start Date End Date Radha Hoover MD PCP - General Internal Medicine 02/08/1808/14 Dakota Hook DO PCP - General Internal Medicine 12/04/21 documented as of this encounter
--- OUTSIDE RECORDS SUMMARY | 2025-02-05 07:58 | XMS_ITS | Clinical Summary ---
Author Organization [facility] Address [address] [place] [address] Care Team Providers Care Desizing Machine Operator Name Role Phone Raeannnena Rickyayo Primary Care Provider [phone] Surgical History Surgery Date Site/Laterality Comments KNEE ARTHROSCOPY Right PROCEDURE: PA ARTHROSCOPY AID [place] SPINE&/FX KNEE W/O FIXJ [...] age to complete this topic Care Teams Desizing Machine Operator Relationship Specialty Start Date End Date Dakota Hook DO PCP - General Internal Medicine 12/04/21
--- OUTSIDE RECORDS SUMMARY | 2025-02-05 07:58 | XMS_ITS | Encounter Summary ---
Author Organization [facility] Address [address] [place] [address] Care Team Providers Care Network Security Officer Name Role Phone Jaye-Radha Mckenzie MD Primary Care Provider Unavailable Dakota Hook DO Primary Care Provider Unavaila ble Reason for Visit * Reason Onset Date Comments TEST RESULTS 02/23/2018 Encounter Details Date Type Department Care Team Description 02/23/2018 Telephone Adult Medicine - [address] [address] Rox Aleman PA-C [address] [place] [id number] TEST RESULTS Social History Tobacco Use Types [...] advised of message below Rox Aleman PA-C [facility] Adult Med Floor Nurse ? Please call patient with normal results- normal knee xray documented in this encounter Plan of Treatment Not on file documented as of this encounter Visit Diagnoses Not on filedocumented in this encounter Care Teams Network Security Officer Relationship Specialty Start Date End Date [place]-Radha Mckenzie MD PCP - General Internal Medicine 02/08/1808/14 Dakota Hook DO PCP - General Internal Medicine 12/04/21 documented as of this encounter
--- OUTSIDE RECORDS SUMMARY | 2025-02-05 07:58 | XMS_ITS | Encounter Summary ---
Author Organization [facility] Address [address] [place] [address] Care Team Providers Care Weed Sprayer Name Role Phone Radha Hoover MD Primary Care Provider Unavailable Dakota Hook DO Primary Care Provider Unavaila ble Encounter Details Date Type Department Care Team Description 08/14/2020 Pt. Non Urgent Medic al Question Adult Medicine - [address] [address] Yamila Butler PA-C Social History Tobacco Use [...] on filedocumented in this encounter Care Teams Weed Sprayer Relationship Specialty Start Date End Date [place]-Radha Mckenzie MD PCP - General Internal Medicine 02/08/1808/14 Dakota Hook DO PCP - General Internal Medicine 12/04/21 documented as of this encounter
--- NOTE | 2025-02-05 08:10 | P.CONAN_ITS ---
[facility] Active Problems Active Problems: All Active Problems Vitamin B1 deficiency (Acute) Vitamin A deficiency (Acute) Vitamin B12 deficiency (Acute) Vitamin D deficiency (Acute) BMI 35.0-35.9,adult (Acute) Obesity (Acute) Anxiety (Acute) Depression (Acute) GERD (gastroesophageal reflux disease) (Acute) DJD (degenerative joint disease) (Acute) Past Medical History Medical History Arthritis Anxiety Depression GERD (gastroesophageal reflux disease) DJD (degenerative joint disease) Family History Family History Mother Hypertension Back problem Brother No problems noted. Surgical History Surgical History History of esophagogastroduodenoscopy (EGD) (11/07/24) Hx of arthroscopic knee surgery History of Problems with Anesthesia: No Social History Social History Are you a primary home health care respiratory therapist to a significant other at home: Yes (4 children) Do you presently have visiting nurse or other home services: No Alcohol intake: current Alcohol intake frequency: holidays/special occasions only Patient Tobacco Use Status: Former Tobacco user Smoked in Last 30 Days: No Use of substances other than those prescribed or required for medical reasons: No Have you been hit, kicked, punched, or otherwise hurt by someone within the past year? If so, by whom?: No Are you DNR?: No Advance Directives: No Advance Directives Information Provided: Yes Advance Directives on File: No Patient : No FDLMP: 01/07/2025 : No Poor oral hygiene: No Meds Allergies Allergy/AdvReac Type Severity Reaction Status Date / Time amoxicillin Allergy Mild Hives Verified 01/29/25 08:51 Penicillins Allergy Mild Hives Verified 01/29/25 08:51 apples Allergy Mild mouth gets Uncoded 01/29/25 08:51 numb and tingles Active Medications: Current Medications Levofloxacin (Levaquin) 500 mg in 100 mls @ 100 mls/hr IV PREOP ONE Stop: 02/05/25 08:42 Lactated Ringer's (Lr) 1,000 mls @ 999 mls/hr IV .Q1H1M ADAM Stop: 02/05/25 09:45 Home Medications ?Medication ?Instructions ?Recorded ?Confirmed ?Last Taken ?Type hydroxyzine HCl 10 mg tablet 5 mg PO Q8H PRN anxiety 03/01/23 01/25/25 02/01/25 History Exam Height,Weight and Vital Signs: Height 5 ft 2.5 in Weight 85.729 kg Last Vital Signs Temp 98.3 F 02/05/25 07:57 Pulse 114 H 02/05/25 07:57 Resp 16 02/05/25 07:57 BP 133/81 02/05/25 07:57 Pulse Ox 98 02/05/25 07:57 O2 Del Method Room Air 02/05/25 07:57 Pertinent Lab Results Pertinent Lab Results: Laboratory Tests 01/29/25 09:12 Blood Type O Negative Antibody Screen NEGATIVE Airway Mallampati Class: II TM Dist: >3cm Neck ROM: Full Loose/Missing/Broken Teeth: No Heart: RRR Lungs: CTA Assessment and Plan Assessment Anesthesia Assessment: Anesthesia Plan Discussed and Chart Reviewed Final Anesthetic Review History of Problems with Anesthesia: No NPO: Yes ASA Class: II Final Preanesthetic Review: Meds/Allgs Chart Reviewed, Consent Obtained/Reviewed and Anes Risks/Benef Reviewed Patient Risk: Low Procedure Risk: Intermediate Anesthetic Plan Anesthetic Plan: GA Disposition: Standard PACU
[2025-02-05 08:13] LABS: UPreg QC Valid YES; Urine Pregnancy NEGATIVE (NEGATIVE)
[2025-02-05] MEDS: Lactated Ringers 1,000 ML 999 ML IV (08:25)
[2025-02-05] MEDS: Aprepitant 32 MG/4.4 ML VIAL IVPUSH (08:28)
[2025-02-05] MEDS: Lactated Ringers 1,000 ML 80 ML IVCONT (10:00)
--- NOTE | 2025-02-05 10:02 | MHC.SHP ---
Pre-Procedural Eval Section A - 24 Hr Update-Section A only Date of Service: 02/05/25 The patient is an INPATIENT: Yes The patient has been examined within 24 hours of the surgical procedure. The History & Physical has been completed within 30 days and I have reviewed it.: Yes Section B - Complete if H&P > 30 days Chief Complaint: Obesity Relevant Family History (Specify if Yes): No Relevant Social History: None Present Medications: None Medical History: No relevant PMH History of Previous Operations: No relevant previous surgery Allergies: Allergies Allergy/AdvReac Type Severity Reaction Status Date / Time amoxicillin Allergy Mild Hives Verified 01/29/25 08:51 Penicillins Allergy Mild Hives Verified 01/29/25 08:51 apples Allergy Mild mouth gets Uncoded 01/29/25 08:51 numb and tingles Review of Systems Sugical H&P ROS: Negative: Constitution, Cardiovascular, Respiratory, Neurological, Psychiatric, Hem-Onc, Allergic/Immunologic, Gastrointestinal, Genitourinary, Musculoskeletal, Integumentary, Endocrine and Eyes/Ears/Nose/Throat Exam Surgical H&P Exam: Normal: HEENT, Normal: Heart, Normal: Lungs, Normal: Extremities, Normal: Abdomen, Normal: Skin and Normal: Neurological Plan Diagnosis/Plan: Unchanged I have reviewed the history and physical and performed a pertinent physical examination on my patient. No changes have occurred unless specified. Time Spent With Patient Time: Total time managing care of this patient today ____ minutes.
--- NOTE | 2025-02-05 10:03 | P.BOP_ITS ---
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 The program is a phased program with a special focus on preoperative medical weight management to promote substantial weight loss and prepare the patients for the second phase of the program: bariatric surgery. The patient participated in an intensive weekly lifestyle ?intervention and exercise program during which the patient ?has lost between the initial office visit and the last preoperative visit 22.4lbs, or 10.53% of initial actual body weight. It was deemed appropriate for the patient to now have bariatric surgery. In light of the current Covid-19 pandemic and the well documented strong association of obesity and increased risk of worse outcomes if infected with Covid-19 (REFERENCES: https://pubmed.ncbi.nlm.nih.gov/79801833/ ,? https://pubmed.ncbi.nlm.nih.gov/23791960/ ), any delay in undergoing bariatric surgery may lead to the patient's worsening health condition and increased?risk of more severe Covid-19 disease if infected. In addition a recent?study from [facility] published in [facility] on 10/19/2021 ([id number]) found that, among patients with obesity, substantial weight loss achieved with surgery was associated with improved outcomes of COVID-19 infection. The findings suggest that obesity can be a modifiable risk factor for the severity of COVID-19 infection. In addition, the patient met the BMI-criteria for bariatric surgery based on the BMI on initial presentation. The patient should not be penalized for achieving such weight loss because ?it is not sustainable long-term without surgical intervention and it was achieved in preparation for bariatric surgery ?under my direction and based on my published research ([email or web address]).pdf and? https://www.soard.org/article/[email or web address](22)53930-X/pdf ) ?that a 10% preoperative weight loss improves long-term weight loss after surgery and reduces perioperative complications.? Insurance carriers such as [facility] have endorsed my recommendations ?and have included in their policies criteria to include a 10% preoperative weight loss requirement. PROCEDURE: Esophago-gastroscopy laparoscopic lysis of adhesions, laparoscopic sleeve gastrectomy and laparoscopic gastropexy INDICATIONS: This is a 29 year-old female who was electively scheduled for laparoscopic, possibly open sleeve gastrectomy. The risks and complications of the procedure were discussed with the patient in advance, particularly the possibility of ; pulmonary embolism; staple line leak; bleeding; GERD; cardiac, pulmonary, or renal complications; as well as long-term problems such as insufficient weight loss, vitamin deficiency, strictures, or ulcers. The patient understood all the risks, and was in agreement to proceed with surgery. DESCRIPTION OF PROCEDURE: After informed consent was obtained from the patient, the patient was given preoperative antibiotics, and was transferred to the operating room. After successful induction of general anesthesia, pneumatic compression devices were placed on both lower extremities. An upper endoscopy was performed next. The oropharynx and esophagus appeared to be within normal limits. There was no significant diaphragmatic hernia present. The stomach was entered. Then after all fluid and air were suctioned and the stomach was fully decompressed, the scope was withdrawn and secured in the mid esophagus. The patient was then prepped and draped in the usual sterile manner, and abdominal access was established at the right upper quadrant with the Shruthi technique. A 12 mm blunt port was inserted, and the abdomen was insufflated with CO2 to a pressure of 15 mmHg. Under direct visualization, additional ports were placed, specifically two 5 mm Versi-step ports to the left upper quadrant, and a 5 mm Versi-Step port to the right upper quadrant. 1% lidocaine plain was used to infiltrate all port sites as well as all fascia defects. Following that, the patient was placed in a steep reverse Trendelenburg position. An additional 5 mm port was placed to the right flank for the Mediflex retractor that was used to retract the left lobe of the liver. The gastro-esophageal fat pad was opened with the ultrasonic device (Thunderbeat, Olympus) and the anterior esophagus and hiatus were exposed. The angle of His was opened with the ultrasonic device the fundus of the stomach from any diaphragmatic and splenic attachments. I then opened the gastrocolic ligament between the transverse colon and the greater curvature of the stomach with the ultrasonic device to enter the lesser sac and facilitate the ligation of the short gastric vessels. I started at a mid-point along the greater curvature and using the Thunderbeat, all short gastric vessels were divided all the way to the angle of His until the left elisha was completely dissected at its entirety. I then divided the gastro-colic ligament distally to a distance of about 3-4 cm proximal to the pylorus. There were extensive congenital adhesions between the pancreas and posterior gastric wall. Those were lysed completely with the ultrasonic device. Adhesiolysis took approximately 45 min to complete. The stomach was then divided transversely with two Endo CHAVEZ-45 purple, and three CHAVEZ-60 articulating purple loads using the Aceris 3D InspectionIA stapler and loads. Every effort was made that the gastric sleeve had a tubular shape and an even caliber throughout. Once the sleeve resection was completed, the staple line of the gastric sleeve was reinforced with Hemoclips. The resected stomach was retrieved without difficulty from the Shruthi port. A gastropexy was then performed in order to prevent postoperative GERD and partial gastric volvulus. Several interrupted 2.0 Surgidac sutures were placed between the sleeve's staple line and the previously divided greater omentum and gastro-colic ligament using the Endo-Stitch device. ?An upper endoscopy was performed. There was no narrowing at the GE junction. The scope was easily advanced all the way to the pylorus which was clearly visualized. There was no narrowing anywhere and the sleeve's caliber was even throughout. The sleeve's staple line was inspected and there was no evidence of ischemia, bleeding or dehiscence. At that point the gastroscope was withdrawn from the patient?s mouth while we were decompressing the bowel and the stomach from any remaining air. I looked into the lesser sac to see how the sleeve was situating and it was situating well. There was no bleeding from the staple line, spleen, or short gastric vessels. The Mediflex retractor was removed, and the undersurface of the liver was inspected and there was no bleeding. The patient was placed in supine position. I closed the fascial defect of the 12 mm port site with a figure of eight #1 Polysorb suture. Then 30cc Ropivacaine plain with 10 mg of Dexamethasone were used to infiltrate the fascial closure as well as all skin incisions. At this point, the abdomen was deflated, all ports were removed under direct vision, and no bleeding was noted from any of the port sites. The skin incisions were irrigated with saline and were closed with 4-0 absorbable monofilament sutures. Steri-Strips and OpSites were used to cover all incisions. The patient was extubated and was transferred in stable condition to the recovery room for further care. I was present and performed all marina parts of the procedure. Ms. Ames was the entry level administrative assistant. There were no residents to assist with this case. Jeffy Martinez MD, PhD, FACS Surgeon: Raymond Martinez MD Anesthesia: GETA, local and other (TAP block) Was an Controlled Atmospheric Furnace Brazer used for this Procedure?: No Controlled Atmospheric Furnace Brazer: Toyin Ames Estimated blood loss (mL): 10 IV fluids (mL): 2,100 Urine output (mL): 0 (No Farmer to record output) Pathology: other (1) Stomach, 2) Gastro-esophageal fat pad) Condition: stable Disposition: PACU
--- NOTE | 2025-02-05 10:07 | P.PNGS_ITS ---
Subjective Subjective Date of Service: 02/06/25 Interval history: Feels well. Mild incisional pain. She is tolerating phase 1 bariatric diet Physical Exam 2 Vital Signs: Vital Signs: Last Vital Signs Temp 98.3 F 02/05/25 07:57 Pulse 114 H 02/05/25 07:57 Resp 16 02/05/25 07:57 BP 133/81 02/05/25 07:57 Pulse Ox 98 02/05/25 07:57 O2 Del Method Room Air 02/05/25 07:57 BMI result Body Mass Index 34.0 GI: Inspection: Yes normal to inspection, Yes incision (clean, dry and intact) and Yes obesity Palpation (GI): Soft to palpation Extrem: Right lower extremity: normal to inspection (no calf tenderness) L eft lower extremity: normal to inspection (no calf tenderness) Objective Data Active Medications Lactated Ringer's (Lr) 1,000 mls @ 80 mls/hr IVCONT .[id number] ADAM Last Admin: 02/05/25 10:00 Dose: 80 mls/hr Documented By: CHARITO Labs 02/06/25 05:34 02/06/25 05:34 Labs: Laboratory Results - last 24 hr 02/05/25 07:50 Urine Test NEGATIVE Procedures Date of Service Date of Service: 02/06/25 Progress Note: A&P Assessment and plan (1) Obesity: Status: Acute Assessment and Plan: s/p laparoscopic sleeve gastrectomy, lysis of adhesions and gastropexy Doing well Will check am labs and if OK the patient will be discharged home (2) BMI 35.0-35.9,adult: Status: Inactive (3) Depression: Status: Acute (4) Anxiety: Status: Acute (5) GERD (gastroesophageal reflux disease): Status: Acute (6) DJD (degenerative joint disease): Status: Acute (7) Steatosis, liver: Status: Acute (8) S/P laparoscopic sleeve gastrectomy: Status: Acute (9) Congenital intra-abdominal adhesions: Status: Acute Time Spent With Patient Time: Total time managing care of this patient today ____ minutes. Quality Stroke Does the patient have a stroke diagnosis?: No VTE Prior VTE?: No VTE Risk Level:: Surgical - moderate VTE Device Contraindication: N/A - Device Ordered VTE Drug Contraindication: Treatment Not Indicated
[2025-02-05] MEDS: levoFLOXacin/D5W 500 MG/100 ML PIGGYBACK 100 MG IV (10:30)
--- NOTE | 2025-02-05 12:17 | PHA.MEDREC ---
Pharmacy Consult ? Medication Reconciliation Pharmacy has reviewed the medication reconciliation done by nursing staff.
--- NOTE | 2025-02-05 12:33 | P.DS_ITS ---
DS: Providers Provider Date of Service: 02/06/25 Date of admission: 02/05/25 07:52 Date of discharge: 02/06/25 Primary care physician: Unknown Physician DS: Diagnosis Discharge Diagnosis (1) Obesity: Status: Acute (2) Depression: Status: Acute (3) Anxiety: Status: Acute (4) GERD (gastroesophageal reflux disease): Status: Acute (5) DJD (degenerative joint disease): Status: Acute (6) Steatosis, liver: Status: Acute (7) S/P laparoscopic sleeve gastrectomy: Status: Acute (8) Congenital intra-abdominal adhesions: Status: Acute DS: Summary Hospital Course Hospital Course: ADMITTING DIAGNOSIS: obesity,?liver steatosis, anxiety, depression, GERD, DJD ? DISCHARGE DIAGNOSIS: same, s/p laparoscopic sleeve gastrectomy and gastropexy ? PAST SURGICAL HISTORY:? History of esophagogastroduodenoscopy (EGD) (11/07/24) Hx of arthroscopic knee surgery ? PROCEDURE: upper endoscopy, laparoscopic sleeve gastrectomy and gastropexy ? DISCHARGE SUMMARY: ? History of Present Illness: ? The patient is a?29 year-old woman with a BMI of?34 kg/m2 and associated co- morbidities as described above. The patient had extensive work-up, lost 9.8 lbs preoperatively and was electively scheduled for laparoscopic, possible open sleeve gastrectomy and gastropexy. Risks and complications of the surgery were discussed with the patient in advance, particularly the possibility of , pulmonary embolism, anastomotic leak, bleeding, bowel injury, GERD, cardiac, renal or pulmonary complications. The patient understood all the risks and was in agreement with the surgical plan. ? Hospital Course: ? The patient underwent an uneventful laparoscopic sleeve gastrectomy with gastropexy on the day of admission. Postoperatively, the patient was transferred to the surgical floor. The patient received IV Acetaminophen and IV dilaudid for pain control. Patient was started on bariatric phase 1 diet POD #0. On postoperative day one, the patient was feeling well without nausea, vomiting, fevers, or tachycardia. The patient had some mild incisional pain and the abdomen was soft.? ? On the morning of postoperative day one, the patient was continued on 1 ounce of water or ice every half hour. During the day, the patient did fairly well, having some incisional pain, but able to ambulate adequately and to tolerate liquids well. ? Since the patient is doing well, we decided that the patient was ready to be discharged. The patient was given instructions to follow-up with me next week and to call my office for any fever over 101, persistent abdominal pain, nausea, vomiting, GERD, symptoms of DVT such as calf tenderness, or leg swelling, or pulmonary embolism such as chest pain or shortness of breath.? The patient was also instructed to drink 40-60 ounces of liquids per day using the 1-ounce cups. The patient had been given prescriptions for Tylenol for pain, Zofran prn for nausea, and pantoprazole and carafate previously. The patient was encouraged to ambulate and use the incentive spirometer. The patient was allowed to shower, but no baths, and encouraged to stay active at home. All of these instructions were given to the patient personally. All questions were answered and the patient understood all instructions, the instructions were also given to the patient in print. Time Attestation Discharge Coordination Time (in mins): 30 Quality: Safe Use of Opioids Does Pt have an Active Cancer Diagnosis on the Problem List?: No Quality: Stroke Does the patient have a stroke diagnosis?: No Physical Exam Vital Signs: Vital Signs: Last Vital Signs Temp 98.3 F 02/05/25 07:57 Pulse 114 H 02/05/25 07:57 Resp 16 02/05/25 07:57 BP 133/81 02/05/25 07:57 Pulse Ox 98 02/05/25 07:57 O2 Del Method Room Air 02/05/25 07:57 BMI result Body Mass Index 34.0 DS: Data Data Completed and Pending Pending studies at discharge: Pending at discharge 02/05/25 11:37 Surgical [PTH] Routine Labs on day of discharge: Laboratory Results - last 24 hr 02/05/25 07:50 Urine Test NEGATIVE Discharge Plan Discharge Anticipated Discharge Date/Time: 02/06/25 10:00 Patient Disposition: Home, Self-Care Discharge Diagnosis: s/p laparoscopic sleeve gastrectomy with gastropexy Referrals: Physician,Unknown J [Primary Care Provider] - 1 Week Discharge Medications: Continued pantoprazole 40 mg tablet,delayed release (DR/EC) 40 mg PO DAILY Qty: 90 0RF sucralfate 100 mg/mL suspension 10 ml PO BID Qty: 600 2RF ondansetron 4 mg tablet,disintegrating 4 mg PO Q12H Qty: 20 0RF hydroxyzine HCl 10 mg tablet 5 mg PO Q8H PRN (Reason: anxiety) Discontinued cholecalciferol (vitamin D3) 125 mcg (5,000 unit) capsule 125 mcg PO DAILY Qty: 90 0RF mecobalamin (vitamin B12) 1,000 mcg tablet,disintegrating 1,000 mcg sublingual DAILY Qty: 90 0RF Rx Instructions: place tablet under tongue and allow to dissolve for at least30 secs before swallowing vitamin A palmitate 3,000 mcg (10,000 unit) capsule 10,000 unit PO DAILY Qty: 60 0RF thiamine HCl (vitamin B1) 100 mg tablet 100 mg PO DAILY Qty: 90 0RF Discharge Orders: Discharge Order (Routine); Ordered 02/06/25 Ordered By: Raymond Martinez Activity on Discharge: No heavy lifting Stand Alone Forms: Patient Portal Discharge page Print Language: Danish Care Plan Goals: weight loss Health Concerns: obesity Plan of Treatment: No tub baths, sex or returning to work until discussed at first post op appointment. No alcohol, tobacco or illegal drug use. Continue to use incentive spirometer hourly while awake. Walk in home for 5- 10 minutes every 2 hours during the first week. Wear abdominal binder with activity. Follow all meal plan instructions from your bariatric surgeon. Review bariatric handbook and call with any questions. Discharge Instructions 1. Please call your doctor or come back to the emergency room should any new symptoms arise. 2. Activity: abstain from alcohol,? limited stair climbing, no bending, no driving, no exercise, no illicit substances, no lifting, no sex, no tub bath, no work. 4. Diet: follow your bariatric surgeons recommendations for advancing diet. 5. Dressing Change/Wound Care: Your incisions are covered with waterproof dressings. You can shower with these and pat dry. Do not rub over dressings or incisions. If the area is tender, you may apply an ice pack for short intervals (no more than 20 minutes on, followed by at least 20 minutes off). Do not apply heat. Do not use creams, lotions, or topical antibiotics unless instructed to do so by your surgeon. 6. Call your doctor if: - Your temperature exceeds 101.5 F - You experience excessive pain or swelling - You have an unexpected reaction to medication - You have excessive bleeding - You experience continued vomiting/nausea - Your incision begins to separate - Your incision shows signs of infection such as increased redness, swelling, excessive pain, heat, or drainage (light blood or clear fluid is normal) General instructions: No lifting greater than 10 lbs for the next 6 weeks. [address] driving within 24 hours of taking narcotic pain medications. If you do not move your bowels in the next 2 days, please take milk of magnesia over the counter. Please follow the post op diet and do not advance your diet until you are seen in the office in about 2 weeks. Please walk around your home every hour or two to prevent blood clots from forming in your legs. You do not need to wake from sleeping to walk. Please sleep in a bed or couch to prevent kinking at the hips and knees. Please take your incentive spirometer (your lung internal communications intern) home with you and use it for the next few days to prevent pneumonias. You may shower, no hot tubs, baths or swimming pools. Please call the office with any questions or concerns such as increasing abdominal pain, fever, chills, shortness of breath, chest pain, leg pain or swelling, or redness or drainage from your incisions. Please make sure you are consuming 40-60 ounces of total fluids per day. Avoid all carbonation. Do not hesitate to contact the office with any questions at . The patient's medical history has been reviewed and they are considered low risk for post op DVT and therefore DVT prophylaxis is not considered necessary. Travel after surgery was reviewed. The patient has not disclosed any travel plans during the first 30 days after surgery and they have been advised that within the first 30 days after surgery any bus, plane, train or car travel over 2 hours in duration is contraindicated due to the possibility of developing blood clots from immobility. Any travel, needs to include periods of ambulation of 10 minutes in duration every 2 hours.? The patient was instructed to discuss any plans for travel during this period with their bariatric surgeon. Assessment: s/p laparoscopic sleeve gastrectomy with gastropexy Discharge Date/Time: 02/06/25 09:25
[2025-02-05] MEDS: fentaNYL citrate/PF 100 MCG/2 ML VIAL 25 MCG IVPUSH ×4 (12:37→12:54)
[2025-02-05 13:10] LABS: Hematocrit 38.8 % (37.0-47.0)
[2025-02-05 13:21] LABS: Anion Gap 16 (12-20); Blood Urea Nitrogen 8 mg/dL (9-16); Calcium 8.9 mg/dL (8.4-10.2); Carbon Dioxide 17 mmol/L (22-29); Chloride 105 mmol/L (96-108); Creatinine Clr Calc Pharmacy 127.8; Estimated Glomerular Filt Rate > 60; Glucose Random 100 mg/dL (60-115); Potassium 4.3 mmol/L (3.3-5.1); Sodium 134 mmol/L (135-145)
[2025-02-05] MEDS: hydrOXYzine HCL 10 MG TABLET 5 MG PO (13:47)
[2025-02-05] MEDS: Lactated Ringers 1,000 ML 100 ML IVCONT (13:49)
[2025-02-05] MEDS: 0.9 % Sodium Chloride 1,000 ML 100 ML IVCONT (15:57)
[2025-02-05] MEDS: Acetaminophen 1,000 MG/100 ML PIGGYBACK 16.7 MG IV ×2 (16:59→22:21)
[2025-02-05] MEDS: HYDROmorphone HCl 0.5 MG/0.5 ML SYRINGE 0.25 MG IVPUSH ×2 (18:07→20:30)
[2025-02-05] MEDS: Famotidine/PF 20 MG/2 ML VIAL IVPUSH (19:50)
[2025-02-05] MEDS: 0.9 % Sodium Chloride Flush 3 ML SYRINGE IVFLUSH (19:50)
[2025-02-05] MEDS: Metoprolol Tartrate 2.5 MG in 0.9 % Sodium Chloride 50 ML 210 MG IV (20:55)
[2025-02-05 21:37] LABS: Hematocrit 41.8 % (37.0-47.0); Hemoglobin 13.5 g/dl (12.0-16.0)
[2025-02-05] MEDS: Lactated Ringers 1,000 ML 500 ML IV (22:53)
[2025-02-06] MEDS: HYDROmorphone HCl 0.5 MG/0.5 ML SYRINGE 0.25 MG IVPUSH (00:38)
[2025-02-06] MEDS: 0.9 % Sodium Chloride 1,000 ML 150 ML IVCONT (00:59)
[2025-02-06 02:59] VITALS: BP 100/65; PULSE 82; RESP 18; TEMP 36.6; O2SAT 96
[2025-02-06] MEDS: Metoprolol Tartrate 2.5 MG in 0.9 % Sodium Chloride 50 ML 210 MG IV (03:05)
[2025-02-06] MEDS: Acetaminophen 1,000 MG/100 ML PIGGYBACK 16.7 MG IV (04:11)
[2025-02-06 05:54] LABS: MANUAL DIFF FLAG NO
[2025-02-06 06:03] LABS: Basophils Percent Auto 0.2 % (0-2); Hematocrit 40.2 % (37.0-47.0); Hemoglobin 13.1 g/dl (12.0-16.0); Imm Gran Abs Auto 0.08 X10*3/uL (0.00-0.03); Imm Gran Pct Auto 0.6 % (0.0-0.4); Lymphocytes Absolute Auto 1.5 X10*3/uL (1.2-4.9); Lymphocytes Percent Auto 11.7 % (20-40); Mean Corpuscular HGB Conc 32.6 g/dl (31.0-35.0); Mean Corpuscular Volume 88.9 fL (80.0-98.0); Mean Platelet Volume 9.7 fL (9.4-12.3); Monocytes Absolute Auto 0.9 X10*3/uL (0.1-1.2); Monocytes Percent Auto 6.9 % (2-11); Neutrophils Absolute Auto 10.1 x10*3/uL (2.0-8.3); Neutrophils Percent Auto 80.6 % (45-73); Platelet Count 348 X10*3/uL (160-400); Red Blood Count 4.52 X10*6/uL (4.20-5.50); Red Cell Distribution Width 12.7 % (11.0-16.0); White Blood Count 12.5 X10*3/uL (4.8-10.8)
[2025-02-06 06:11] LABS: Anion Gap 13 (12-20); Blood Urea Nitrogen 5 mg/dL (9-16); Calcium 9.1 mg/dL (8.4-10.2); Carbon Dioxide 15 mmol/L (22-29); Chloride 109 mmol/L (96-108); Creatinine Clr Calc Pharmacy 127.2; Estimated Glomerular Filt Rate > 60; Glucose Random 105 mg/dL (60-115); Potassium 4.4 mmol/L (3.3-5.1); Sodium 133 mmol/L (135-145)
[2025-02-06] MEDS: Famotidine/PF 20 MG/2 ML VIAL IVPUSH (07:07)
[2025-02-06 07:50] VITALS: BP 100/70; PULSE 72; RESP 13; TEMP 36.3; O2SAT 94
--- NOTE | 2025-02-06 09:05 | MHC.CM.PN ---
pt dcd home self care prior to being seen by cm
--- NOTE | 2025-02-06 10:08 | HO.POSTANES ---
Post Anesthesia Evaluation Post Anesthesia Evaluation Date of Service: 02/06/25 Vital Signs: Vital Signs Temp Pulse Resp BP Pulse Ox O2 Del Method 02/06/25 07:50 97.3 F 72 13 100/70 94 Room Air 02/06/25 02:59 98 F 82 18 100/65 96 Room Air 02/05/25 23:53 99 F 96 18 102/62 96 Room Air Anesthesia: General Endotracheal-GETA Mental Status: Awake Pain Control: Satisfactory Nausea/Vomiting: None Hydration: Adequate Anesthesia-Related Issues: No Anes. Related Issues
== END 2025-02-06 09:25 | disposition home or self-care (01) | DRG 403 ==
LOC: HO.SSSA 07:53 → HO.S3 12:24
PROVIDERS: Anesthesiology; Physician Assistant Surgical; Admitting Provider Surgery; Visit Provider Surgery
PROC: 0DB64Z3 Excision of Stomach, Percutaneous Endoscopic Approach, Vertical (ICD-10-PCS; CPT 43845; principal; 2025-02-05 10:20)
DX: E66.01 Morbid (severe) obesity due to excess calories (principal); K76.0 Fatty (change of) liver, not elsewhere classified; Q43.3 Congenital malformations of intestinal fixation; F32.A Depression, unspecified; F41.9 Anxiety disorder, unspecified; M19.90 Unspecified osteoarthritis, unspecified site; K21.9 Gastro-esophageal reflux disease without esophagitis; Z68.34 Body mass index [BMI] 34.0-34.9, adult; Z87.891 Personal history of nicotine dependence; Z79.899 Other long term (current) drug therapy
CPT/HCPCS: 36415; 80048; 81025; 85014; 85018; 85025; 86850; 86900; 86901; 88305; 88307; 88342; A4649; C9145; J0131; J1100; J1171; J1956; J2003; J2250; J2371; J2405; J2704; J2795; J3010; J7120

== ENCOUNTER → 2025-02-05 07:52 | Outpatient (BNV) | payer OTHER, SELFPAY | PROVIDERS: Admitting Provider Surgery; Visit Provider Surgery | DX: E66.812 Obesity, class 2 (principal); E66.09 Other obesity due to excess calories; Z68.37 Body mass index [BMI] 37.0-37.9, adult; Z68.35 Body mass index [BMI] 35.0-35.9, adult; F32.A Depression, unspecified; F41.9 Anxiety disorder, unspecified; K21.9 Gastro-esophageal reflux disease without esophagitis; M19.90 Unspecified osteoarthritis, unspecified site; K76.0 Fatty (change of) liver, not elsewhere classified; Z98.84 Bariatric surgery status; Q43.3 Congenital malformations of intestinal fixation | CPT/HCPCS: 43659; 43775; 99024 ==

== ENCOUNTER 2025-02-07 17:25 | Emergency (ER) | payer OTHER, SELFPAY ==
--- NOTE | ~2025-02-07 | XR_ITS ---
CLINICAL HISTORY: sob 1 view chest x-ray Comparison: Chest x-ray from 11/15/2024 Findings: No consolidation or effusion. No pneumothorax. Normal size heart, for AP technique. No acute fracture, by one view x-ray. IMPRESSION: No consolidation. This document has been electronically signed by: Amilcar Wilson MD on 02/07/2025 20:36:38
--- NOTE | ~2025-02-07 | CT_ITS ---
CLINICAL HISTORY: Tachycardia postop CT angiography chest with contrast. With MIP MPR Postprocessing. Comparison: CT of the abdomen and pelvis from same day and chest x-ray from 02/07/2025 Findings: Free intraperitoneal air noted in the partially imaged abdomen. Please refer to CT of the abdomen and pelvis for considerations including postprocedural gas. No central pulmonary embolism. No aortic dissection. Mild residual thymic tissues noted. Nonenlarged mediastinal lymphadenopathy. Mild bibasilar atelectasis. No consolidation, pneumothorax, or pleural effusion. No acute displaced rib fracture. Mild/minimal Schmorl's nodes noted. IMPRESSION: 1. No central pulmonary embolism. 2. No consolidation. This document has been electronically signed by: Amilcar Wilson MD on 02/08/2025 00:46:28
--- NOTE | ~2025-02-07 | CT_ITS ---
CLINICAL HISTORY: s p gastric sleeve CT abdomen and pelvis with contrast Comparison: None Findings: Mild bibasilar atelectasis. Free intraperitoneal is concerning for viscus perforation. This may also be postprocedural given ventral gas of the superficial soft tissues present at this time. Curvilinear opacities are postprocedural right rectus musculature and right anterior abdominal wall. Procedure changes from gastric sleeve are noted without leakage of the contrast or dense ingested material. No small bowel obstruction. Moderate stool burden is present, including imaged cecum. The adrenal glands are normal. Gallbladder is unremarkable for CT. Spleen approaches the upper limits of normal. Mild fat deposition of the liver noted with motion artifacts. No hydronephrosis. Filtered contrast could obscure small stones. Small appendicolith present without acute appendicitis. Uterus is anteverted. Urinary bladder is markedly distended. No adnexal soft tissue mass. Mild free fluid in the pelvis may be physiologic and/or postprocedural. No walled-off or definite drainable abscess by CT at this time. No acute osseous abnormality. Subcutaneous edema is noted dependently. IMPRESSION: 1. Free intraperitoneal air is likely postprocedural. Consider attention on follow-up to ensure resolution, if clinically indicated. 2. Postprocedural changes from gastric sleeve. No small bowel obstruction. 3. Small appendicolith present without acute appendicitis at this time. This document has been electronically signed by: Amilcar Wilson MD on 02/08/2025 00:37:51
[2025-02-07 17:27] VITALS: BP 120/87; PULSE 143; RESP 18; TEMP 36.6; O2SAT 98; BMI 32.1
--- NOTE | 2025-02-07 17:28 | ED_ITS ---
HPI - General Adult General Chief complaint: Arrhythmia/Palpitations Stated complaint: postop /02/05 heart racing,dizziness Time Seen by Provider: 02/07/25 17:54 Source: patient Mode of arrival: ambulatory History of Present Illness ED Provider: HPI narrative: Patient is status post gastric sleeve surgery 02/05 discharged yesterday comes here as feeling palpitation dizziness denies nausea vomiting had loose bowels yesterday no significant abdominal pain no fever no chills Related Data Home Medications ?Medication ?Instructions ?Recorded ?Confirmed hydroxyzine HCl 10 mg tablet 5 mg PO Q8H PRN anxiety 03/01/23 01/25/25 Previous Rx's ?Medication ?Instructions ?Recorded ondansetron 4 mg disintegrating 4 mg PO Q12H nausea and vomiting 01/25/25 tablet #20 tabs pantoprazole 40 mg tablet,delayed 40 mg PO DAILY #90 tabs 01/25/25 release sucralfate 100 mg/mL oral 10 ml PO BID #600 mL 01/25/25 suspension Allergies Allergy/AdvReac Type Severity Reaction Status Date / Time amoxicillin Allergy Mild Hives Verified 02/07/25 17:30 Penicillins Allergy Mild Hives Verified 02/07/25 17:30 apples Allergy Mild mouth gets Uncoded 01/29/25 08:51 numb and tingles Review of Systems 2 Review of Systems: Yes all other systems are reviewed and are negative PMFSH Past Medical History Medical History BMI 35.0-35.9,adult Arthritis Anxiety Depression GERD (gastroesophageal reflux disease) DJD (degenerative joint disease) Surgical History History of esophagogastroduodenoscopy (EGD) (11/07/24) Hx of arthroscopic knee surgery Family History Family History Mother Hypertension Back problem Brother No problems noted. Social History Social History Household Members: None Housing: House Are you a primary healthcare associate to a significant other at home: Yes (4 children) Do you presently have visiting nurse or other home services: No Alcohol intake: current Alcohol intake frequency: holidays/special occasions only Patient Tobacco Use Status: Former Tobacco user Physical Exam ED Vital Signs: Vital Signs - 24 hr 02/07/25 17:27 02/07/25 18:26 Temperature 98 F Pulse Rate 143 H 105 H Respiratory Rate 18 20 Blood Pressure 120/87 Pulse Oximetry 98 98 Oxygen Delivery Method Room Air Room Air BMI result Body Mass Index 32.1 Appearance: Alert. Oriented X3. No acute distress. Eyes: PERRLA, No Nystagmus ENT: Pharynx normal. Oral Mucosa moist Neck: Normal inspection. Neck supple. CVS: Normal heart rate and rhythm. Pulses normal. Respiratory: No respiratory distress. Equal air entry bilateral, no wheezing/rales/rhonchi Abdomen: Soft and nontender. Bowel sounds are present, no mass palpable, no CVA tenderness Skin: Skin warm and dry. Normal skin color. Normal skin turgor. Extremities: No lower extremity edema. No calf tenderness Neuro: Oriented X 3. No motor deficit. No sensory deficit.No cerebellar signs , cranial nerves II-XII intact Course Course Course Narrative: This is a rapid medical exam performed by Katherin Vidal NP: Additional HPI, ROS, PE not included below will be deferred to primary provider. Patient is a 29-year-old female presenting to the ED with complaint of tachycardia, dizziness, right upper quadrant pain. Expect called in by JODIE Barrow from bariatric surgery, pt had lap sleeve gastrectomy on , was tachycardic before and after procedure but improved prior to discharge home after receiving lopressor. He feels RUQ pain likely due to liver retractor, wants CTA, CT A/P with minimal PO as well as IV contrast. Plan: will start with EKG, labs Medications Administered Discontinued Medications Generic Name Dose Route Start Last Admin Trade Name Freq PRN Reason Stop Dose Admin Acetaminophen 650 mg 02/07/25 19:32 02/07/25 19:40 Acetaminophen 325 Mg Tablet PO 02/07/25 19:33 650 mg ONCE ONE Administration Sodium Chloride 1,000 mls @ 999 mls/hr 02/07/25 17:58 02/07/25 20:13 Ns IV 02/07/25 18:58 Infused .Q1H1M ONE Infusion Sodium Chloride 1,000 mls @ 999 mls/hr 02/07/25 21:00 02/08/25 00:09 Ns IV 02/07/25 22:00 Infused .Q1H1M ADAM Infusion Dextrose/Sodium Chloride 1,000 mls @ 999 mls/hr 02/07/25 23:08 02/08/25 01:48 D51/2ns IVCONT 02/08/25 00:08 Infused .Q1H1M ONE Infusion Medical Decision Making Medical Decision Making [facility] Narrative: Patient's tachycardia with postop changes decreased oral intake responded to IV fluids CT scan of the chest negative for PE CT scan of the abdomen without any significant acute abnormality except for postop changes patient is feeling much better at the time of discharge case discussed with Rodrigue marshall nurse practitioner for bariatric surgery agreed to follow up as outpatient Differential Diagnosis Differential Diagnoses: The differential diagnosis associated with the presentation includes PE/acute fluid collection of the abdominal/fluid leaks/postop infection Lab Data [facility] Lab Attestation statement: I reviewed the patient's lab results. 02/07/25 18:12 02/07/25 18:12 Labs: Lab Results 02/07/25 02/08/25 Range/Units 18:12 00:13 WBC 11.9 H (4.8-10.8) X10*3/uL RBC 4.86 (4.20-5.50) X10*6/uL Hgb 14.1 (12.0-16.0) g/dl Hct 42.1 (37.0-47.0) % MCV 86.6 (80.0-98.0) fL MCH 29.0 (27.0-33.0) pg MCHC 33.5 (31.0-35.0) g/dl RDW 13.3 (11.0-16.0) % Plt Count 299 (160-400) X10*3/uL MPV 9.9 (9.4-12.3) fL Immature Gran % (Auto) 0.4 (0.0-0.4) % Neut % (Auto) 72.8 (45-73) % Lymph % (Auto) 16.9 L (20-40) % [place] % (Auto) 9.1 (2-11) % Eos % (Auto) 0.3 (0-4) % Baso % (Auto) 0.5 (0-2) % Lymph # (Auto) 2.0 (1.2-4.9) X10*3/uL [place] # (Auto) 1.1 (0.1-1.2) X10*3/uL Eos # (Auto) 0.0 (0.0-0.4) X10*3/uL Baso # (Auto) 0.1 (0.0-0.2) X10*3/uL Abs Immat Gran (auto) 0.05 H (0.00-0.03) X10*3/uL Absolute Neuts (auto) 8.7 H (2.0-8.3) x10*3/uL Absolute Nucleated RBC 0.000 (0.0-0.012) X10*3/uL Nucleated RBC % (auto) 0.0 (0.0-0.2) /100WBC PT 13.9 H (10.9-12.4) SEC INR 1.2 H (0.9-1.1) D-Dimer High Sensitivty 410 NG/ML Sodium 140 (135-145) mmol/L Potassium 3.7 (3.3-5.1) mmol/L Chloride 107 (96-108) mmol/L Carbon Dioxide 20 L (22-29) mmol/L Anion Gap 17 (12-20) BUN 6 L (9-16) mg/dL Creatinine 0.66 (0.5-1.4) mg/dL Estim Creat Clear Calc 127.6 Estimated GFR > 60 Random Glucose 83 (60-115) mg/dL Calcium 9.3 (8.4-10.2) mg/dL Magnesium 1.7 (1.6-2.6) mg/dL Total Bilirubin 0.6 (0.0-1.0) mg/dL AST 31 (5-31) U/L ALT 32 H (0-31) U/L Alkaline Phosphatase 67 (39-117) U/L Troponin I High Sens < 2.7 (<3.5-17.0) ng/L Total Protein 7.8 (6.5-8.0) g/dL Albumin 4.1 (3.5-5.0) g/dL Lipase 30 (8-78) U/L Urine Color Yellow Urine Appearance Clear Urine pH 6.5 (5.0-9.0) Ur Specific [place] >= 1.030 H (1.005-1.025) Urine Protein Trace (Neg-Trace) mg/dL Urine Glucose (UA) Negative (Negative) mg/dL Urine Ketones >=160 (Negative) mg/dL Urine Blood Negative (Negative) Urine Nitrite Negative (Negative) Ur Leukocyte Esterase Small (1+) H (Negative) Urine RBC 0-2 (0-2) /HPF Urine WBC 6-10 (0-5) /HPF Ur Squamous Epith Cells 11-20 (0-2) /HPF Urine Bacteria 3+ (None Seen) Hyaline Casts 0-2 (0-2) /LPF Independent Interpretation I performed an independent interpretation of an: EKG Interpretation: Sinus tachycardia with heart rate of 121 beats per normal interval normal axis no acute ST-T changes no acute ischemia Radiology Impression Discussion of test interpretation with radiology: I have reviewed the radiologist's reading. Radiologist Impression: Negative CTA negative abdominal CT Discharge Plan Discharge Clinical Impression: Sinus tachycardia, Status post bariatric surgery Patient Disposition: Home, Self-Care Instructions: Laparoscopic Sleeve Gastrectomy (DC), Tachycardia (ED) Additional Instructions: /fluids as instructed by the bariatric surgeon Follow up with bariatric surgeon Prescriptions: No Action pantoprazole 40 mg tablet,delayed release (DR/EC) 40 mg PO DAILY Qty: 90 0RF sucralfate 100 mg/mL suspension 10 ml PO BID Qty: 600 2RF ondansetron 4 mg tablet,disintegrating 4 mg PO Q12H Qty: 20 0RF hydroxyzine HCl 10 mg tablet 5 mg PO Q8H PRN (Reason: anxiety) Interventions: ED Discharge Assessment Last Done: 02/08/25 02:05 Discharge Date/Time: 02/08/25 02:05 Print Language: Tajik
--- NOTE | 2025-02-07 17:31 | ECG_ITS ---
Test Reason : CP Blood Pressure : */* mmHG Vent. Rate : 121 BPM Atrial Rate : 121 BPM P-R Int : 128 ms QRS Dur : 86 ms QT Int : 320 ms P-R-T Axes : 58 25 29 degrees QTcB Int : 454 ms Sinus tachycardia Otherwise normal ECG When compared with ECG of 15-Nov-2024 08:53, Vent. rate has increased by 51 bpm Referred By: Yoli Vidal Electronically Signed By: CAMELIA JONAS MD
[2025-02-07] MEDS: 0.9 % Sodium Chloride 1,000 ML 999 ML IV ×2 (18:12→21:05)
[2025-02-07 18:19] LABS: MANUAL DIFF FLAG NO
[2025-02-07 18:26] VITALS: PULSE 105; RESP 20; O2SAT 98
[2025-02-07 18:30] LABS: INTERNATIONAL NORM RATIO 1.2 (0.9-1.1); Prothrombin Time 13.9 SEC (10.9-12.4)
[2025-02-07 18:46] LABS: Alanine Aminotransferase 32 U/L (0-31); Albumin Level 4.1 g/dL (3.5-5.0); Alkaline Phosphatase 67 U/L (39-117); Anion Gap 17 (12-20); Aspartate Amino Transferase 31 U/L (5-31); Bilirubin Total 0.6 mg/dL (0.0-1.0); Blood Urea Nitrogen 6 mg/dL (9-16); Calcium 9.3 mg/dL (8.4-10.2); Carbon Dioxide 20 mmol/L (22-29); Chloride 107 mmol/L (96-108); Creatinine Clr Calc Pharmacy 127.6; Estimated Glomerular Filt Rate > 60; Glucose Random 83 mg/dL (60-115); Lipase 30 U/L (8-78); Magnesium 1.7 mg/dL (1.6-2.6); Potassium 3.7 mmol/L (3.3-5.1); Sodium 140 mmol/L (135-145); Total Protein 7.8 g/dL (6.5-8.0); Troponin-I High Sensitivity < 2.7 ng/L (<3.5-17.0)
[2025-02-07 18:55] LABS: Basophils Absolute Auto 0.1 X10*3/uL (0.0-0.2); Basophils Percent Auto 0.5 % (0-2); Eosinophils Percent Auto 0.3 % (0-4); Hematocrit 42.1 % (37.0-47.0); Hemoglobin 14.1 g/dl (12.0-16.0); Imm Gran Abs Auto 0.05 X10*3/uL (0.00-0.03); Imm Gran Pct Auto 0.4 % (0.0-0.4); Lymphocytes Percent Auto 16.9 % (20-40); Mean Corpuscular HGB Conc 33.5 g/dl (31.0-35.0); Mean Corpuscular Volume 86.6 fL (80.0-98.0); Mean Platelet Volume 9.9 fL (9.4-12.3); Monocytes Absolute Auto 1.1 X10*3/uL (0.1-1.2); Monocytes Percent Auto 9.1 % (2-11); Neutrophils Absolute Auto 8.7 x10*3/uL (2.0-8.3); Neutrophils Percent Auto 72.8 % (45-73); Platelet Count 299 X10*3/uL (160-400); Red Blood Count 4.86 X10*6/uL (4.20-5.50); Red Cell Distribution Width 13.3 % (11.0-16.0); White Blood Count 11.9 X10*3/uL (4.8-10.8)
[2025-02-07 19:13] VITALS: BP 127/87; PULSE 103; RESP 21; TEMP 36.9; O2SAT 100
--- NOTE | 2025-02-07 19:32 | PC.NURSE ---
pt resting comfortably in bed, reporting 5/10 R sided pain, requesting tylenol. HR 92 sinus rhythm on monitor. aware
[2025-02-07] MEDS: Acetaminophen 325 MG TABLET 650 MG PO (19:40)
[2025-02-07 20:47] VITALS: BP 115/85; PULSE 111
[2025-02-07 20:51] VITALS: BP 108/78; BP 109/82; PULSE 112; PULSE 122
[2025-02-07 22:02] VITALS: BP 116/86; PULSE 91; RESP 13; TEMP 37; O2SAT 100
[2025-02-07 23:12] LABS: D Dimer High Sensitivity 410 NG/ML
[2025-02-08 00:09] VITALS: BP 109/80; PULSE 109; RESP 15; TEMP 36.8; O2SAT 96
[2025-02-08] MEDS: Dextrose 5 % and 0.45 % NaCl 1,000 ML 999 ML IVCONT (00:09)
[2025-02-08 00:32] LABS: Appearance Urine Clear; Color Urine Yellow; Glucose Urine UA Negative (Negative); Leukocyte Esterase Urine Small (1+) (Negative); Nitrite Urine Negative (Negative); PH 6.5 (5.0-9.0); Specific Gravity - Urine >= 1.030 (1.005-1.025); UMIC TRIGGER UACC YES; Urine Blood Negative (Negative); Urine Ketones >=160 mg/dL (Negative); Urine Protein Trace mg/dL (Neg-Trace)
[2025-02-08 00:56] LABS: Bacteria Urine 3+ (None Seen); Hyaline Casts Urine 0-2 /LPF (0-2); RBC Urine 0-2 /HPF (0-2); UACC Culture Trigger YES
[2025-02-08 01:49] VITALS: BP 108/77; PULSE 100; RESP 15; TEMP 36.8; O2SAT 98
[2025-02-08 02:05] VITALS: BP 108/77; PULSE 100; RESP 15; TEMP 36.8; O2SAT 98
== END 2025-02-08 02:05 | disposition home or self-care (01) ==
PROVIDERS: Registered Nurse Emergency; Emergency Provider Internal Medicine; PCP Student in an Organized Health Care Education/Training Program
DX: R00.0 Tachycardia, unspecified (principal); R10.11 Right upper quadrant pain; R06.02 Shortness of breath; Z98.84 Bariatric surgery status; Z87.891 Personal history of nicotine dependence
CPT/HCPCS: 36415; 71045; 71275; 74177; 80053; 81001; 83690; 83735; 84484; 85025; 85379; 85610; 87086; 93005; 96361; 96365; 99285

== ENCOUNTER → 2025-02-07 17:31 | Outpatient (BNV) | payer OTHER, SELFPAY | PROVIDERS: Emergency Provider Internal Medicine; PCP Student in an Organized Health Care Education/Training Program; Visit Provider Internal Medicine Cardiovascular Disease | DX: R00.0 Tachycardia, unspecified (principal) | CPT/HCPCS: 93010 ==

== ENCOUNTER → 2025-02-07 20:15 | Outpatient (BNV) | payer OTHER, SELFPAY | PROVIDERS: Emergency Provider Internal Medicine; PCP Student in an Organized Health Care Education/Training Program; Visit Provider Radiology Neuroradiology | DX: R00.0 Tachycardia, unspecified (principal); Z98.84 Bariatric surgery status | CPT/HCPCS: 71045; 71275; 74177 ==

== ENCOUNTER 2025-02-13 10:14 | Outpatient (AMB) | payer OTHER, SELFPAY ==
--- NOTE | 2025-02-13 10:26 | MHC.OFFVISWM ---
VS Expanded 02/13/25 10:36 BP 129/84 Blood Pressure Location Rt brachial Blood Pressure Position Sitting Pulse 104 H Pulse Source Pulse Oximeter Temp 97.7 F Temperature Source Temporal Artery Scan Pulse Oximetry 97 Oxygen Delivery Method Room Air Height 5 ft 3 in Weight 177 lb 3.2 oz BMI 31.4 Body Fat % 43.8 Body Fat Mass 77.6 Fat Free Mass 99.4 Visceral Fat Rating 8.0 Body Water % 40.3 Body Water Mass 71.4 Muscle Mass/Score 94.4 Basal Metabolic Rate/Score 1,436 Intake Visit Reasons: (OV) PO LSG 02/05/25 Allergies amoxicillin Allergy (Mild, Verified 02/13/25 10:39) Hives Penicillins Allergy (Mild, Verified 02/13/25 10:39) Hives apples Allergy (Mild, Uncoded 01/29/25 08:51) mouth gets numb and tingles HPI Comments Details: Patient is a pleasant 29-year-old female who returns to the office today in follow-up. She is 8 days post sleeve gastrectomy performed on 02/05/2025. She is tolerating 2 fair life shakes with 4 oz of shake and 4 oz of almond milk at 10-12 and 2-4, as well as 1 full shake at 6-9. She has moved her bowels. She has been experiencing tachycardia. This required a trip to the emergency room. Workup was negative for acute pathology. She does state that she has underlying anxiety and stopped her Lexapro several months ago. She notices the anxiety and tachycardia correlating. She was advised to follow up with her primary care physician who prescribed her the Lexapro. She stopped this as it has caused her to gain significant weight. [facility] Medical History (Updated 02/09/25 @ 00:00 by [facility] Dabecky) BMI 35.0-35.9,adult Arthritis Anxiety Depression GERD (gastroesophageal reflux disease) DJD (degenerative joint disease) Surgical History (Updated 02/13/25 @ 10:39 by Nolvia Patel CMA) S/P laparoscopic sleeve gastrectomy History of esophagogastroduodenoscopy (EGD) (11/07/24) Hx of arthroscopic knee surgery Family History Mother Hypertension Back problem Brother No problems noted. Social History Household Members: None Housing: House Are you a primary lead care manager to a significant other at home: Yes (4 children) Do you presently have visiting nurse or other home services: No Alcohol intake: current Alcohol intake frequency: holidays/special occasions only Patient Tobacco Use Status: Former Tobacco user Physical Exam Vital Signs: Last Vital Signs Temp 97.7 F 02/13/25 10:36 Pulse 104 H 02/13/25 10:36 BP 129/84 02/13/25 10:36 Pulse Ox 97 02/13/25 10:36 Oxygen Delivery Method Room Air 02/13/25 10:36 BMI result Body Mass Index 31.4 GI Inspection: Yes incision (Clean, dry, intact.) Assessment & Plan Assessment & Plan (1) S/P laparoscopic sleeve gastrectomy: Code(s): Z98.84 - Bariatric surgery status Category: Surgical Plan: POD 8 s/p LSG on 02/05/[address] Martinez Weight loss prior to surgery was 24.3 pounds or 11.4 % TBWL. Original weight on 11/02/2024 was 212.8 pounds and op weight was 188.5 pounds. Be sure to text Dr Martinez exactly 1 week after surgery your weight from your home scale so he can adjust your meal plan. Continue meal plan until f/u w Toyin in 2 weeks May shower, no submersion in bath for another week Continue abdominal binder with activity and exercise for the next 2 weeks. Exercise prior to surgery was stationary bike and may resume No abdominal exercises for 6 weeks post operatively Will be emailed link to post op video for review Reminded of the pace of drinking, 2 mL per minute, 1 oz/15 min. With regard to her tachycardia, she is going to follow-up with her primary care physician. She previously stop Lexapro due to significant weight gain. She does state that her primary care physician left the practice and she will inquire about a new provider within the practice.
[2025-02-13 10:36] VITALS: BP 129/84; PULSE 104; TEMP 36.5; O2SAT 97; BMI 31.4
--- OUTSIDE RECORDS SUMMARY | 2025-02-13 11:54 | XMS_ITS | Clinical Summary ---
Author Organization Patient Business Ser [facility] Address [address] [place] [address] Care Team Providers Care Advisory Software Engineer Name Role Phone Raeannnena Rickyayo Primary Care Provider [phone] Surgical History Surgery Date Site/Laterality Comments KNEE ARTHROSCOPY Right PROCEDURE: [place] ARTHROSCOPY AID [place] SPINE&/FX KNEE W/O FIXJ [...] age to complete this topic Care Teams Advisory Software Engineer Relationship Specialty Start Date End Date Dakota Hook DO PCP - General Internal Medicine 12/04/21
== END 2025-02-13 11:14 | disposition home or self-care (01) ==
LOC: HO.HBS 10:15
PROVIDERS: PCP Student in an Organized Health Care Education/Training Program; Visit Provider Physician Assistant Surgical
DX: Z98.84 Bariatric surgery status (principal)
CPT/HCPCS: 99024

== ENCOUNTER → 2025-02-13 10:14 | Outpatient (BNVA) | payer OTHER, SELFPAY | PROVIDERS: PCP Student in an Organized Health Care Education/Training Program; Visit Provider Physician Assistant Surgical | DX: Z98.84 Bariatric surgery status (principal) | CPT/HCPCS: 99212 ==

== ENCOUNTER 2025-02-13 13:09 | Outpatient (AMB) | payer OTHER, SELFPAY ==
--- NOTE | 2025-02-13 13:07 | MHC.WMTHER ---
Intake Intake Visit Reasons: TV PO LSG 02/05/25 Allergies amoxicillin Allergy (Mild, Verified 02/13/25 10:39) Hives Penicillins Allergy (Mild, Verified 02/13/25 10:39) Hives apples Allergy (Mild, Uncoded 01/29/25 08:51) mouth gets numb and tingles PFSH Medical History (Updated 02/09/25 @ 00:00 by Marilia Muniz) BMI 35.0-35.9,adult Arthritis Anxiety Depression GERD (gastroesophageal reflux disease) DJD (degenerative joint disease) Surgical History (Updated 02/13/25 @ 10:39 by Nolvia Patel CMA) S/P laparoscopic sleeve gastrectomy History of esophagogastroduodenoscopy (EGD) (11/07/24) Hx of arthroscopic knee surgery Family History Mother Hypertension Back problem Brother No problems noted. Social History Household Members: None Housing: House Are you a primary assistant child care teacher to a significant other at home: Yes (4 children) Do you presently have visiting nurse or other home services: No Alcohol intake: current Alcohol intake frequency: holidays/special occasions only Patient Tobacco Use Status: Former Tobacco user Behavioral Health Assessment Weight Management Therapy Therapy Notes Details Subjective: Client is status-post bariatric surgery on 02/05/2025. She reports a challenging recovery, including episodes of elevated heart rate?primarily in the mornings and intermittently throughout the day. She was evaluated in the ER and continues to monitor symptoms in coordination with Dr. Gill. Client experienced high pain levels during the first three post-op days, but currently reports no pain. She continues to experience brief episodes of tachycardia (lasting under 2 minutes) and reports ongoing anxiety and feeling drained by the end of the day. She attended her one-week post-op visit with [facility] today and has been cleared for light physical activity. Dr. Gill recommended resuming a 2,000-calorie burn per week goal starting next week. Objective: Client presented via Telehealth for a behavioral health post-operative follow-up. Session focused on current functioning, emotional adjustment, and physical recovery. Explored the emotional impact of surgery and developing routines during early recovery. Client expressed insight into her anxiety and acknowledged a tendency to overthink. She was engaged and responsive throughout the session. Interventions provided: Psychoeducation on emotional responses during early recovery Introduced mindfulness as a grounding strategy Recommended a guided meditation ruthann for daily use Discussed habit building, anxiety triggers, and Sx management strategies. Assessment/Response: Mental status: Anxious but stable; insight present. Thought process logical. Mood congruent with content. Risk reported/identified: Food/Weight/Diet Expectations of change Initial Goal to lose 10% of your weight before surgery, which is about 21lbs. Ultimate weight goal: 191lbs before surgery Pt started the program at 212Lbs and most recent weight as of 12/20/2024 was 195Lbs. . Day of surgery weight: 181 Lbs PO weight 02/13/25: 177Lbs Pt's target weight: 140 lbs. PT is implementing the following: Current meal plan: liquid plan/ shakes only. Exercise plan: stationary bike. 45min 4 days a week. Assessment & Plan Assessment & Plan (1) Anxiety: Code(s): F41.9 - Anxiety disorder, unspecified Plan Continue BH sessions to support adjustment, mindset, and anxiety regulation. F/up in 1 week. Next ruthann: 02/21/2025 at 3pm, Via Telehealth. Telehealth Telehealth [facility]health [facility] Location of provider rendering services: other Location of patient: address on file Patient Identification confirmed using: Name, : Yes Telehealth method: video Patient verbally consented to treatment: Yes Patient verbally consented to billing insurance company: Yes Patient informed of any privacy concerns related to visit: Yes Minutes spent on Phone/Video with Pt.: 30 Coding Level of Care Code Established Pt Tele Psytx 30 mins ([id number]) Patient Type Established Diagnoses Anxiety F41.9 Time Spent (min) 30 Comment start time: 1:00pm, End time: 1:30pm
--- OUTSIDE RECORDS SUMMARY | 2025-02-13 15:32 | XMS_ITS | Encounter Summary ---
Author Organization [facility] Address [address] [place] [address] Care Team Providers Care Napper Fixer Name Role Phone Custer-Radha Mckenzie MD Primary Care Provider Unavailable Dakota Hook DO Primary Care Provider Unavaila ble Reason for Visit * Reason Onset Date Comments Chief Catalyst Operator Feedback 11/06/2020 Orthopedics -Not es not complete Encounter Details Date Type Department Care Team Description 11/06/2020 Telephone Adult Medicine - [address] [address] Yamila Butler PA-C Chief Catalyst Operator Feedback (Orthopedics -Notes not complete) Social History [...] are complete. Thank you, Anastacia Orthopedic Navigator [facility] documented in this encounter Plan of Treatment Not on file documented as of this encounter Visit Diagnoses Not on filedocumented in this encounter Care Teams Napper Fixer Relationship Specialty Start Date End Date Custer-Radha Mckenzie MD PCP - General Internal Medicine 02/08/1808/14 Dakota Hook DO PCP - General Internal Medicine 12/04/21 documented as of this encounter
--- OUTSIDE RECORDS SUMMARY | 2025-02-13 15:32 | XMS_ITS | Encounter Summary ---
Author Organization [facility] Address [address] [place] [address] Care Team Providers Care Steam Pipe Fitter Name Role Phone Radha Hoover MD Primary Care Provider Unavailable Dakota Hook DO Primary Care Provider Unavaila ble Encounter Details Date Type Department Care Team Description 08/14/2020 Pt. Non Urgent Medic al Question Adult Medicine - [address] [address] Yamila Butler PA-C Social History Tobacco Use [...] on filedocumented in this encounter Care Teams Steam Pipe Fitter Relationship Specialty Start Date End Date Roebling-Radha Mckenzie MD PCP - General Internal Medicine 02/08/1808/14 Dakota Hook DO PCP - General Internal Medicine 12/04/21 documented as of this encounter
--- OUTSIDE RECORDS SUMMARY | 2025-02-13 15:32 | XMS_ITS | Encounter Summary ---
Author Organization [facility] Address [address] [place] [address] Care Team Providers Care Tea Room Manager Name Role Phone Radha Hoover MD Primary Care Provider Unavailable Dakota Hook DO Primary Care Provider Unavaila ble Encounter Details Date Type Department Care Team Description 02/27/2018 Release of Information Medical Records [address] [place] [id number] Abstract, Provider Social History Tobacco Use Types [...] on filedocumented in this encounter Care Teams Tea Room Manager Relationship Specialty Start Date End Date Radha Hoover MD PCP - General Internal Medicine 02/08/1808/14 Dakota Hook DO PCP - General Internal Medicine 12/04/21 documented as of this encounter
--- OUTSIDE RECORDS SUMMARY | 2025-02-13 15:32 | XMS_ITS | Encounter Summary ---
Author Organization [facility] Address [address] [place] [address] Care Team Providers Care Surgeon Chief Name Role Phone Radha Hoover MD Primary Care Provider Unavailable Dakota Hook DO Primary Care Provider Unavaila ble Reason for Visit * Reason Onset Date Comments Error 04/24/2018 Encounter Details Date Type Department Care Team Description 04/24/2018 Telephone Physiatry - [address] [address] Juan J Ashley DO Error Social History [...] on filedocumented in this encounter Care Teams Surgeon Chief Relationship Specialty Start Date End Date Radha Hoover MD PCP - General Internal Medicine 02/08/1808/14 Dakota Hook DO PCP - General Internal Medicine 12/04/21 documented as of this encounter
--- OUTSIDE RECORDS SUMMARY | 2025-02-13 15:32 | XMS_ITS | Encounter Summary ---
Author Organization [facility] Address [address] [place] [address] Care Team Providers Care Special Systems Technician Name Role Phone Radha Hoover MD Primary Care Provider Unavailable Dakota Hook DO Primary Care Provider Unavaila ble Encounter Details Date Type Department Care Team Description 04/01/2021 Armature Winder Repair Helper Report Medical Records [address] [place] [id number] Constantin Yadav PA-C Social History Tobacco Use [...] on filedocumented in this encounter Care Teams Special Systems Technician Relationship Specialty Start Date End Date Radha Hoover MD PCP - General Internal Medicine 02/08/1808/14 Dakota Hook DO PCP - General Internal Medicine 12/04/21 documented as of this encounter
--- OUTSIDE RECORDS SUMMARY | 2025-02-13 15:32 | XMS_ITS | Encounter Summary ---
Author Organization [facility] Address [address] [place] [address] Care Team Providers Care Surgery Manager Name Role Phone Jaye-Radha Mckenzie MD Primary Care Provider Unavailable Dakota Hook DO Primary Care Provider Unavaila ble Reason for Visit * Reason Onset Date Comments TEST RESULTS 02/23/2018 Encounter Details Date Type Department Care Team Description 02/23/2018 Telephone Adult Medicine - [address] [address] Rox Aleman PA-C [address] [place] [id number] TEST RESULTS Social History Tobacco Use Types [...] advised of message below Rox Aleman PA-C [facility] Adult Med Floor Nurse ? Please call patient with normal results- normal knee xray documented in this encounter Plan of Treatment Not on file documented as of this encounter Visit Diagnoses Not on filedocumented in this encounter Care Teams Surgery Manager Relationship Specialty Start Date End Date [place]-Radha Mckenzie MD PCP - General Internal Medicine 02/08/1808/14 Dakota Hook DO PCP - General Internal Medicine 12/04/21 documented as of this encounter
--- OUTSIDE RECORDS SUMMARY | 2025-02-13 15:32 | XMS_ITS | Encounter Summary ---
Author Organization [facility] Address [address] [place] [address] Care Team Providers Care Manipulator Operator Name Role Phone Bruce-Radha Mckenzie MD Primary Care Provider Unavailable Dakota Hook DO Primary Care Provider Unavaila ble Encounter Details Date Type Department Care Team Description 03/25/2021 Pt. Non Urgent Medic al Question Adult Medicine - [address] [address] Yamila Butler PA-C Social History Tobacco Use [...] to update I will be going to [facility] urgent care tomorrow following a fall I had on03/24/21 I dislocated my LEFT knee and it severely swollen and I can not stand on it. documented in this encounter Plan of Treatment Not on file documented as of this encounter Visit Diagnoses Not on filedocumented in this encounter Care Teams Manipulator Operator Relationship Specialty Start Date End Date Bruce-Radha Mckenzie MD PCP - General Internal Medicine 02/08/1808/14 Dakota Hook DO PCP - General Internal Medicine 12/04/21 documented as of this encounter
--- OUTSIDE RECORDS SUMMARY | 2025-02-13 15:32 | XMS_ITS | Clinical Summary ---
Author Organization Patient Business Ser [facility] Address [address] [place] [address] Care Team Providers Care Apartment Groundskeeper Name Role Phone Raeannnena Rickyayo Primary Care Provider [phone] Surgical History Surgery Date Site/Laterality Comments KNEE ARTHROSCOPY Right PROCEDURE: [place] ARTHROSCOPY AID [place] SPINE&/FX KNEE W/O FIXJ [...] age to complete this topic Care Teams Apartment Groundskeeper Relationship Specialty Start Date End Date Dakota Hook DO PCP - General Internal Medicine 12/04/21
--- OUTSIDE RECORDS SUMMARY | 2025-02-13 15:32 | XMS_ITS | Encounter Summary ---
Author Organization [facility] Address [address] [place] [address] Care Team Providers Care Student Success Coach Name Role Phone Radha Hoover MD Primary Care Provider Unavailable Dakota Hook DO Primary Care Provider Unavaila ble Reason for Visit * Reason Onset Date Comments er follow up 02/08/2018 Encounter Details Date Type Department Care Team Description 02/08/2018 Telephone Adult Medicine - [address] [address] Radha Hoover MD er follow up Social [...] 03/09/2018 Which hospital was patient seen at?: What was the injury or problem the [...] on filedocumented in this encounter Care Teams Student Success Coach Relationship Specialty Start Date End Date [place]-Radha Mckenzie MD PCP - General Internal Medicine 02/08/1808/14 Dakota Hook DO PCP - General Internal Medicine 12/04/21 documented as of this encounter
== END 2025-02-13 13:39 | disposition home or self-care (01) ==
LOC: HO.HBST 13:09
PROVIDERS: PCP Student in an Organized Health Care Education/Training Program; Visit Provider Counselor Mental Health
DX: F41.9 Anxiety disorder, unspecified (principal)
CPT/HCPCS: 90832

== ENCOUNTER 2025-02-21 15:16 | Outpatient (AMB) | payer OTHER, SELFPAY ==
--- NOTE | 2025-02-21 15:05 | MHC.WMTHER ---
Intake Intake Visit Reasons: TV PO LSG 02/05/25 Allergies amoxicillin Allergy (Mild, Verified 02/13/25 10:39) Hives Penicillins Allergy (Mild, Verified 02/13/25 10:39) Hives apples Allergy (Mild, Uncoded 01/29/25 08:51) mouth gets numb and tingles PFSH Medical History (Updated 02/14/25 @ 00:02 by Background Daemon) BMI 35.0-35.9,adult Arthritis Anxiety Depression GERD (gastroesophageal reflux disease) DJD (degenerative joint disease) Surgical History (Updated 02/14/25 @ 00:02 by Background Daemon) S/P laparoscopic sleeve gastrectomy History of esophagogastroduodenoscopy (EGD) (11/07/24) Hx of arthroscopic knee surgery Family History Mother Hypertension Back problem Brother No problems noted. Social History Household Members: None Housing: House Are you a primary care transition coordinator to a significant other at home: Yes (4 children) Do you presently have visiting nurse or other home services: No Alcohol intake: current Alcohol intake frequency: holidays/special occasions only Patient Tobacco Use Status: Former Tobacco user Behavioral Health Assessment Weight Management Therapy Therapy Notes Details Subjective: The patient reports difficulty maintaining adequate fluid intake, noting that she experiences excessive burping after drinking her shakes, which has led her to avoid fluids. She also reports ongoing constipation and feelings of dehydration. Additionally, the patient states she feels tired and frustrated. Since returning to work last week, she has felt exhausted and has been unable to engage in physical activity. Objective: The patient presented for a follow-up visit via Telehealth. . Discussion focused on current functional challenges, physical symptoms, and emotional well-being. The importance of adhering to post-operative guidelines was reviewed, particularly in light of her early return to work and its potential impact on recovery. Support was provided to help coordinate an earlier follow-up with the physician nurse's assistant (PA). With the patient's consent, the program registered nurse (RN) was updated regarding her ongoing issues to ensure additional support. A one-day work excuse was provided for the following day to allow the patient to rest and refocus on hydration. She was informed that further time off may be recommended based on her upcoming medical evaluation. The importance of maintaining communication with her healthcare providers and following medical guidance without making independent changes was emphasized. The patient?s emotions were validated, and problem-solving strategies were explored to address identified challenges. Assessment/Response: Mental Status: Within normal limits. Risk Reported/Identified: None reported or observed for mental health. Food/Weight/Diet Expectations of change Initial Goal to lose 10% of your weight before surgery, which is about 21lbs. Ultimate weight goal: 191lbs before surgery Pt started the program at 212Lbs and most recent weight as of 12/20/2024 was 195Lbs. . Day of surgery weight: 181 Lbs PO weight 02/13/25: 177Lbs Pt's target weight: 140 lbs. PT is implementing the following: Current meal plan: liquid plan/ shakes only. Exercise plan: stationary bike. 45min 4 days a week. Assessment & Plan Assessment & Plan (1) Anxiety: Code(s): F41.9 - Anxiety disorder, unspecified (2) Status post bariatric surgery: Code(s): Z98.84 - Bariatric surgery status Plan The provider updated the program nurse on the patient's current condition. A follow-up appointment with the PA was facilitated for tomorrow 02/22 @2pm, in person. The patient was advised to contact Dr. Bridget josue for additional guidance. She was encouraged to remain off work tomorrow to focus on hydration and self-care. Next Appointment: February 26, 2025, at 3:00 PM via Telehealth. Telehealth Telehealth Telehealth [facility]: [facility] Location of provider rendering services: other Location of patient: address on file Patient Identification confirmed using: Name, : Yes Telehealth method: video Patient verbally consented to treatment: Yes Patient verbally consented to billing insurance company: Yes Patient informed of any privacy concerns related to visit: Yes Minutes spent on Phone/Video with Pt.: 55 Coding Level of Care Code Established Pt Tele Psytx >53 mins (24568) Patient Type Established Diagnoses Anxiety F41.9 Status post bariatric surgery Z98.84 Time Spent (min) 55
--- OUTSIDE RECORDS SUMMARY | 2025-02-21 17:04 | XMS_ITS | Encounter Summary ---
Author Organization [employer] Address [address] [place] [address] Care Team Providers Care Air Breaker Operator Name Role Phone Ruchi Weeks MD Primary Care Provider [phone] Reason for Visit * Reason Onset Date Comments Anxiety 02/21/2025 Encounter Details Date Type Department Care Team (Late st Contact Info) Description 02/21/2025 Telephone Internal Medicine - [facility] [address] [place], [place] [phone] Ruchi Weeks MD [address] [place] [address] Anxiety Social History Tobacco Use Types Packs/Day Years Used Date Smoking Tobacco: Never Smokeless Tobacco: Never Alcohol Use Standard Drinks/Week Comments No 0 (1 standard drink = 0.6 oz pur e alcohol) Comments Unknown Sex and Gender Information Value Date Recorded Sex Assigned at Not on file Legal Sex Female 9:42 AM EDT Gender Identity Not on file Sexual Orientation Not on file documented as of this encounter Progress Notes * Kortney Damian RN - 02/21/2025 4:16 PM EDT Spoke to pt-reports of not being Able to take scheduled medcn-lexapro due to former PCP leaving practice. Denies any SI/ROBLERO. Appt made ( not with PCP). * Lanie Payton - 02/21/2025 2:56 PM EDT Patient call requires triage: Symptoms patient is presenting: anxiety How long has patient had these symptoms?: since jun of last year unable to get refills.Dr Hook left practice. Needs appt noah For ALL patients calling to schedule any appointment (routine, sick visit, follow up, consult, etc.) in the outpatient setting please ask the following questions: Do you have fever of higher than 101, sore throat with difficulty swallowing or severe shortness ofbreath? no If YES to any of these above symptoms, send a message to triage and do not book. Red dot. If no, an audio or video visit should be booked. Have you had close contact with someone with Coronavirus in the last 14 days? no Have you traveled abroad? no Have you traveled recently to another state outside of [place], [place], [place], [place], [place], [place], [place]? no o If yes, did you quarantine for 14 days or have a negative covid test? no If yes to any of the above, patient is not to be scheduled in office until after 14 day quarantine or negative covid test. If pain or injury related was it due to an accident at work or from a motor vehicle accident? If yes, date of accident/Injury: No If yes, gather 3rd constitution party insurance information Third Constitution Party Information: not applicable PCP: Ruchi Weeks MD Payor: [employer] PLAN / Plan: WE[employer] MEDICAID / Product Type: *No Product type* / documented in this encounter Plan of Treatment Upcoming Encounters Date Type Department Care Team (Late st Contact Info) Description 03/06/2025 8:30 AM EDT Office Visit Internal Medicine - [facility] [address] [place], [place] [phone] Noe Enciso PA [address] [place], [place] documented as of this encounter Visit Diagnoses Not on filedocumented in this encounter Care Teams Air Breaker Operator Relationship Specialty Start Date End Date Ruchi Weeks MD [address] [place], [place] PCP - General Internal Medicine 02/21/25 documented as of this encounter
--- OUTSIDE RECORDS SUMMARY | 2025-02-21 17:04 | XMS_ITS | Clinical Summary ---
Author Organization Patient Business Ser [facility] [place] Address [address] [place] [address] Care Team Providers Care Mechanic Welder Truck Driver Name Role Phone Ruchi Weeks MD Primary Care Provider [phone] Encounters Date Type Department Care Team Description 02/21/2025 Telephone Internal Medicine - [facility] [address] [place] [phone] Ruchi Weeks MD Anxiety from Last 3 Months Surgical History Surgery Date Site/Laterality Comments KNEE ARTHROSCOPY Right PROCEDURE: [place] ARTHROSCOPY AID TX SPINE&/FX KNEE W/O FIXJ [...] 07/15/2023 10:17 AM EDT Plan of Treatment Upcoming Encounters Date Type Department Care Team (Late st Contact Info) Description 03/06/2025 8:30 AM EDT Office Visit [facility] Medicine - [facility] [address] [facility] [place] [address] Noe Enciso PA [address] [place] [address] Health Maintenance Due Date Last Done Comments Hepatitis B Vaccines (1 of 3 - 19+ 3-dose series) 2014 Cervical Cancer Screening: P ap Smear 2016 Depression Screening 07/07/2020 HIV Screening 07/07/2020 Hepatitis C Screening 07/07/2020 Social Influencers of Health Screening 07/07/2020 COVID-19 Vaccine (2023-2 5 season) 2024 03/09/2022, 09/28/2021, 08/31/2021 Influenza [...] on patient's age to complete this topic Insurance [facility] [employer] [employer] Care Teams Mechanic Welder Truck Driver Relationship Specialty Start Date End Date Ruchi Weeks MD [address] [place] [phone] PCP - General Internal Medicine 02/21/25
== END 2025-02-21 16:22 | disposition home or self-care (01) ==
LOC: HO.HBST 15:16
PROVIDERS: PCP Student in an Organized Health Care Education/Training Program; Visit Provider Counselor Mental Health
DX: F41.9 Anxiety disorder, unspecified (principal); Z98.84 Bariatric surgery status
CPT/HCPCS: 90837

== ENCOUNTER → 2025-02-21 15:16 | Outpatient (BNVA) | payer OTHER, SELFPAY | PROVIDERS: PCP Student in an Organized Health Care Education/Training Program; Visit Provider Counselor Mental Health ==

== ENCOUNTER 2025-02-22 13:49 | Outpatient (AMB) | payer OTHER, SELFPAY ==
--- NOTE | 2025-02-22 13:52 | A.OFFVIS_ITS ---
VS Expanded 02/22/25 14:02 BP 110/72 Blood Pressure Location Rt brachial Blood Pressure Position Sitting Pulse 120 H Pulse Source Pulse Oximeter Temp 97.7 F Temperature Source Temporal Artery Scan Pulse Oximetry 97 Oxygen Delivery Method Room Air Height 5 ft 3 in Weight 169 lb 6.4 oz BMI 30.0 Body Fat % 43.0 Body Fat Mass 72.8 Fat Free Mass 96.6 Visceral Fat Rating 7.0 Body Water % 41.0 Body Water Mass 69.4 Muscle Mass/Score 91.8 Basal Metabolic Rate/Score 1,394 Intake Visit Reasons: OV PO LSG 02/05/25 Allergies amoxicillin Allergy (Mild, Verified 02/22/25 13:58) Hives Penicillins Allergy (Mild, Verified 02/22/25 13:58) Hives apples Allergy (Mild, Uncoded 01/29/25 08:51) mouth gets numb and tingles HPI Comments Details: This?a?29?yo female who is s/p LSG without hiatal hernia repair on?02/05/2025. Presents for 2 week post op visit. Weight today is 169.4 pounds, with a BMI of 30. There has been a 43.4 pound weight loss,(initial weight 212.8 pounds) since starting the program on 11/02/2024 reflecting a 20.3 % total body weight loss and a weight loss of 19.1 pounds since surgery (operative weight 188.5 pounds) reflecting a 10.1 % TBWL since surgery. No complaints of nausea, emesis, abdominal pain or reflux. Reports constipation. last BM 02/09/25 Patient called the office yesterday stating that she had noticed her heart rate was elevated and she has been burping with her oral intake. Stating this has been going on since surgery however did not mentioned it at her 1 week postop appointment. Has appointment with new PCP through [facility] on 03/06/25 to discuss her cessation of her lexapro. Hydroxyzine prn, with effect. Notes increased anxiety today. Present meal plan includes: Using isopure infusion 1/2 scoop in 8 oz water 8-10, 11-1 isopure infusion 1 scoop in 8 oz water 2-4 fit crunch bar 5-8 She is not doing the bar due to fear. She is able to do her shakes but leaves the last 2-3 oz and then switches to gatorade zero. 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 ? [facility] Medical History (Updated 02/22/25 @ 14:28 by JODIE Yuen) BMI 35.0-35.9,adult Arthritis Anxiety Depression GERD (gastroesophageal reflux disease) DJD (degenerative joint disease) Surgical History S/P laparoscopic sleeve gastrectomy History of esophagogastroduodenoscopy (EGD) (11/07/24) Hx of arthroscopic knee surgery Family History Mother Hypertension Back problem Brother No problems noted. Social History Household Members: None Housing: House Are you a primary multi care technician to a significant other at home: Yes (4 children) Do you presently have visiting nurse or other home services: No Alcohol intake: current Alcohol intake frequency: holidays/special occasions only Patient Tobacco Use Status: Former Tobacco user Physical Exam Const General: healthy appearing and no acute distress Resp Effort & Inspection: normal respiratory effort Auscultation: clear to auscultation bilaterally Cardio Rate: tachycardic Rhythm: regular rhythm GI Auscultation: normal bowel sounds Extrem General: Yes normal to inspection Assessment & Plan Assessment & Plan (1) S/P laparoscopic sleeve gastrectomy: Code(s): Z98.84 - Bariatric surgery status Category: Surgical Plan: Overall, patient appears well. She has significant anxiety for which she takes hydroxyzine at home. She used to be on Lexapro and is going to discuss this with her new primary care physician on 03/06/25. She will use isopure infusion as directed in gatorade zero and discuss w Dr Gill. She will additionally buy celebrate clear as another option for flavor and discuss with Dr Gill. she will additionally try the fit crunch bar. She has not yet done this as she was fearful she would be unable to tolerate it although she has not done it. We discussed the anxiety as a significant component to her tachycardia and constipation and eructation. She will follow up in the office on 03/13/2025. Additionally, I have given her a note to remain out of work until that time as she feels as though she is very busy at work and can not keep up with her fluids. (2) Constipation: Code(s): K59.00 - Constipation, unspecified Category: Medical Plan: Patient given prescription for Dulcolax suppository and Colace. She has been given instruction by Dr. Martinez to start milk of magnesia. Patient states that she has had constipation lifelong and has milk of magnesia at home. Additionally recommendation was for Metamucil 1 tbsp in her shake, I suggested 1 fiber gummy instead as she is already having difficulty with her shakes. Encouraged to continue to communicate. Medications: New bisacodyl (Dulcolax (bisacodyl)) 10 mg [place] DAILY PRN 12 ea 0RF constipation docusate sodium (Colace) 100 mg PO DAILY 90 days 90 caps 0RF
[2025-02-22 14:02] VITALS: BP 110/72; PULSE 120; TEMP 36.5; O2SAT 97
--- OUTSIDE RECORDS SUMMARY | 2025-02-22 14:05 | XMS_ITS | Encounter Summary ---
Author Organization [employer] Address [address] [place] [address] Care Team Providers Care Grain Roaster Name Role Phone Ruchi Weeks MD Primary Care Provider [phone] Reason for Visit * Reason Onset Date Comments Anxiety 02/21/2025 Encounter Details Date Type Department Care Team (Late st Contact Info) Description 02/21/2025 Telephone Internal Medicine - [facility] [address] [place], [place] [phone] Ruchi Weeks MD [address] [place] [address] Anxiety Social History Tobacco Use Types Packs/Day [...] traveled recently to another state outside of [place], [place], [place], [place], [place], [place], [place]? no o If yes, did you quarantine [...] of accident/Injury: No If yes, gather 3rd libertarian insurance information Third Constitution Party Information: not applicable PCP: Ruchi Weeks MD Payor: [employer] PLAN / Plan: [employer] MEDICAID / Product Type: *No Product type* / documented in this encounter Plan of Treatment Upcoming Encounters Date Type Department Care Team (Late st Contact Info) Description 03/06/2025 8:30 AM EDT Office Visit Internal Medicine - [facility] [address] [place], [place] [phone] Noe Enciso PA [address] [place], [place] documented as of this encounter Visit Diagnoses Not on filedocumented in this encounter Care Teams Grain Roaster Relationship Specialty Start Date End Date Ruchi Weeks MD [address] [place], [place] PCP - General Internal Medicine 02/21/25 documented as of this encounter
--- OUTSIDE RECORDS SUMMARY | 2025-02-22 14:06 | XMS_ITS | Clinical Summary ---
Author Organization Patient Business Ser [facility] [place] Address [address] [place] [address] Care Team Providers Care Logistics Research Engineer Name Role Phone Ruchi Weeks MD Primary Care Provider [phone] Encounters Date Type Department Care Team Description 02/21/2025 Telephone Internal Medicine - [facility] [address] [place] [phone] Ruchi Weeks MD Anxiety from Last 3 Months Surgical History Surgery Date Site/Laterality Comments KNEE ARTHROSCOPY Right PROCEDURE: [place] ARTHROSCOPY AID TX SPINE&/FX KNEE W/O FIXJ [...] AM EDT Office Visit Internal Medicine - [facility] [address] [facility] [place] [address] Noe Enciso PA [address] [place] [address] Health Maintenance Due Date Last Done Comments [...] patient's age to complete this topic Insurance [facility] PLAN Care Teams Logistics Research Engineer Relationship Specialty Start Date End Date Ruchi Weeks MD [address] [place] [phone] PCP - General Internal Medicine 02/21/25
== END 2025-02-22 14:31 | disposition home or self-care (01) ==
LOC: HO.HBS 13:49
PROVIDERS: PCP Student in an Organized Health Care Education/Training Program; Visit Provider Physician Assistant Surgical
DX: Z98.84 Bariatric surgery status (principal); K59.00 Constipation, unspecified
CPT/HCPCS: 99024

== ENCOUNTER → 2025-02-22 13:49 | Outpatient (BNVA) | payer OTHER, SELFPAY | PROVIDERS: PCP Student in an Organized Health Care Education/Training Program; Visit Provider Physician Assistant Surgical | DX: Z48.815 Encounter for surgical aftercare following surgery on the digestive system (principal); Z98.84 Bariatric surgery status | CPT/HCPCS: 99212 ==

== ENCOUNTER 2025-02-26 15:09 | Outpatient (AMB) | payer OTHER, SELFPAY ==
--- NOTE | 2025-02-26 15:05 | A.OFFWM_ITS ---
Intake Intake Visit Reasons: TV PO LSG 02/05/25 Allergies amoxicillin Allergy (Mild, Verified 02/22/25 13:58) Hives Penicillins Allergy (Mild, Verified 02/22/25 13:58) Hives apples Allergy (Mild, Uncoded 01/29/25 08:51) mouth gets numb and tingles PFSH Medical History (Updated 03/13/25 @ 13:45 by JODIE Noe) BMI 35.0-35.9,adult Arthritis Anxiety Depression GERD (gastroesophageal reflux disease) DJD (degenerative joint disease) Surgical History S/P laparoscopic sleeve gastrectomy History of esophagogastroduodenoscopy (EGD) (11/07/24) Hx of arthroscopic knee surgery Family History Mother Hypertension Back problem Brother No problems noted. Social History Household Members: None Housing: House Are you a primary director of critical care to a significant other at home: Yes (4 children) Do you presently have visiting nurse or other home services: No Alcohol intake: current Alcohol intake frequency: holidays/special occasions only Patient Tobacco Use Status: Former Tobacco user Behavioral Health Assessment Weight Management Therapy Therapy Notes Details Subjective: Patient reports feeling very emotional and stressed. She expresses regret about undergoing weight-loss surgery. She has been advised to remain off work. Patient also shares feelings of uncertainty regarding her recent decision to quit her job. Objective: Patient attended a follow-up visit via Telehealth. We discussed her current functioning, challenges, and needs, including emotional and practical concerns. The patient reflected on her decision to quit her job and reviewed outcomes from her last visit with the mental health provider ([facility]). Cognitive Processing Therapy (CPT) techniques were utilized during the session to validate her feelings, provide supportive feedback, and explore her decision- making process. Mindfulness practices were introduced to increase self-awareness around her thoughts, feelings, and behaviors, helping her to focus on what is within and outside her control. Patient was advised to consult with her primary care provider or dietitian regarding meal planning, as nutritional guidance is outside this provider?s s cope. Assessment/Response: * Mental status: Alert and oriented; mood: down; affect: congruent; insight: fair; judgment: intact. * Risk reported/identified: None. The patient presents with a down mood, experiencing frustration and guilt related to recent life changes and health decisions. She remains motivated to engage in therapy and shows insight into her emotional struggles. Food/Weight/Diet Expectations of change Initial Goal to lose 10% of your weight before surgery, which is about 21lbs. Ultimate weight goal: 191lbs before surgery Pt started the program at 212Lbs and the most recent weight as of 12/20/2024 was 195Lbs. . Day of surgery weight 02/05/2025: 181 Lbs. PO weight 02/13/25: 177Lbs PO weight 02/26/2025: 168Lbs Pt's target weight: 140 lbs. PT is implementing the following: Current meal plan: liquid plan/ shakes only. Exercise plan: Daily walks. Assessment & Plan Assessment & Plan (1) Anxiety: Code(s): F41.9 - Anxiety disorder, unspecified (2) Status post bariatric surgery: Code(s): Z98.84 - Bariatric surgery status Plan Encourage PT to keep ruthann with PCP per [facility] advise. F/up with me in 1 week. Next ruthann 03/06/25 @11am - 30 min slot (telehealth) Telehealth Telehealth Telehealth Platform: [facility] Location of provider rendering services: other (Home office. [place], [place]) Location of patient: address on file Patient Identification confirmed using: Name, : Yes Telehealth method: video Patient verbally consented to treatment: Yes Patient verbally consented to billing insurance company: Yes Patient informed of any privacy concerns related to visit: Yes Minutes spent on Phone/Video with Pt.: 55 Coding Level of Care Code Established Pt Tele Psytx >53 mins ([id number]) Patient Type Established Diagnoses Anxiety F41.9 Status post bariatric surgery Z98.84 Time Spent (min) 55
--- OUTSIDE RECORDS SUMMARY | 2025-02-26 16:19 | XMS_ITS | Clinical Summary ---
Author Organization Patient Business Ser [facility] [place] Address [address] [place] [address] Care Team Providers Care Bed Control Specialist Name Role Phone Ruchi Weeks MD Primary Care Provider [phone] Encounters Date Type Department Care Team Description 02/21/2025 Telephone Internal Medicine - [facility] [address] [place] [phone] Ruchi Weeks MD Anxiety from Last 3 Months Surgical History Surgery Date Site/Laterality Comments KNEE ARTHROSCOPY Right PROCEDURE: [place] ARTHROSCOPY AID TX SPINE&/FX KNEE W/O FIXJ [...] AM EDT Office Visit [facility] Medicine - [facility] [address] [facility] [place] [address] Noe Enciso PA [address] [place] [address] Health Maintenance Due Date Last Done Comments [...] patient's age to complete this topic Insurance [facility] PLAN Care Teams Bed Control Specialist Relationship Specialty Start Date End Date Ruchi Weeks MD [address] [place] [phone] PCP - General Internal Medicine 02/21/25
--- OUTSIDE RECORDS SUMMARY | 2025-02-26 16:19 | XMS_ITS | Encounter Summary ---
Author Organization [employer] Address [address] [place] [address] Care Team Providers Care Business Executive Name Role Phone Ruchi Weeks MD Primary Care Provider [phone] Reason for Visit * Reason Onset Date Comments Anxiety 02/21/2025 Encounter Details Date Type Department Care Team (Late st Contact Info) Description 02/21/2025 Telephone Internal Medicine - [facility] [address] [place], [place] [phone] Ruchi Weeks MD [address] [place] [address] Anxiety Social History Tobacco Use Types Packs/Day [...] traveled recently to another state outside of [place], [place], [place], [place], [place], [place], [place]? no o If yes, did you quarantine [...] of accident/Injury: No If yes, gather 3rd green party insurance information Third Constitution Party Information: not applicable PCP: Ruchi Weeks MD Payor: [employer] PLAN / Plan: [employer]ICAID / Product Type: *No Product type* / documented in this encounter Plan of Treatment Upcoming Encounters Date Type Department Care Team (Late st Contact Info) Description 03/06/2025 8:30 AM EDT Office Visit Internal Medicine - [facility] [address] [place], [place] [phone] Noe Enciso PA [address] [place], [place] documented as of this encounter Visit Diagnoses Not on filedocumented in this encounter Care Teams Business Executive Relationship Specialty Start Date End Date Ruchi Weeks MD [address] [place], [place] PCP - General Internal Medicine 02/21/25 documented as of this encounter
== END 2025-02-26 16:09 | disposition home or self-care (01) ==
LOC: HO.HBST 15:09
PROVIDERS: PCP Student in an Organized Health Care Education/Training Program; Visit Provider Counselor Mental Health
DX: F41.9 Anxiety disorder, unspecified (principal); Z98.84 Bariatric surgery status
CPT/HCPCS: 90837

== ENCOUNTER 2025-03-13 13:37 | Outpatient (AMB) | payer OTHER, SELFPAY ==
--- NOTE | 2025-03-13 13:33 | MHC.OFFVISWM ---
VS Expanded 03/13/25 13:37 Height 5 ft 3 in Weight 166 lb BMI 29.4 Intake Visit Reasons: TV PO LSG 02/05/25 Allergies amoxicillin Allergy (Mild, Verified 02/22/25 13:58) Hives Penicillins Allergy (Mild, Verified 02/22/25 13:58) Hives apples Allergy (Mild, Uncoded 01/29/25 08:51) mouth gets numb and tingles Medication List - Last Reconciled 03/13/25 by JODIE Noe bisacodyl (Dulcolax (bisacodyl)) 10 mg [place] DAILY PRN docusate sodium (Colace) 100 mg PO DAILY 90 days hydroxyzine HCl 5 mg PO Q8H PRN ondansetron 4 mg PO Q12H pantoprazole 40 mg PO DAILY sucralfate 10 mL PO BID HPI Comments Details: This?is a?29?yo F who is s/p LSG 02/05/2025. Presents for 1 month post op visit. Weight at last visit on 02/22/2025 was 169.4 pounds, weight today is 166 pounds, representing a 3.4 pound weight loss with a BMI today of 29.4.? No complaints of nausea, emesis, abdominal pain. Reports some reflux, this is getting better this week; previously reported constipation which is slightly better now with MoM. Tachycardia also improved; saw PCP last week, was referred to cardiology. She does not care for the taste of the shakes. She wants to start solids. Present meal plan includes: Isopure infusion 1/2 scoop in 8 oz water 8-10am, 11am-1pm Isopure infusion 1 scoop in 8 oz water 2-4pm fit crunch bar 5-8pm reports hydration is improved Exercise routine includes: none- trying to manage tachycardia PFSH Medical History (Updated 03/13/25 @ 13:45 by JODIE Noe) BMI 35.0-35.9,adult Arthritis Anxiety Depression GERD (gastroesophageal reflux disease) DJD (degenerative joint disease) Surgical History S/P laparoscopic sleeve gastrectomy History of esophagogastroduodenoscopy (EGD) (11/07/24) Hx of arthroscopic knee surgery Family History Mother Hypertension Back problem Brother No problems noted. Social History Household Members: None Housing: House Are you a primary professional healthcare representative to a significant other at home: Yes (4 children) Do you presently have visiting nurse or other home services: No Alcohol intake: current Alcohol intake frequency: holidays/special occasions only Patient Tobacco Use Status: Former Tobacco user Telehealth Telehealth Telehealth Platform: Telephone Location of provider rendering services: other Location of patient: address on file Patient Identification confirmed using: Name, : Yes Telehealth method: voice only Patient verbally consented to treatment: Yes Patient verbally consented to billing insurance company: Yes Patient informed of any privacy concerns related to visit: Yes Minutes spent on Phone/Video with Pt.: 17 Assessment & Plan Assessment & Plan (1) S/P laparoscopic sleeve gastrectomy: Code(s): Z98.84 - Bariatric surgery status Category: Surgical (2) Overweight: Code(s): E66.3 - Overweight Category: Medical Plan Pt will follow up with cardiology. Will monitor reflux. Will reach out to Dr Gill regarding starting solid food. Can resume all activities once 6w postop including swimming. Pt will monitor her reflux sx and slow down pace of drinking. Gave pt my cell phone # to communicate with any questions. RTC mid April.
[2025-03-13 13:37] VITALS: BMI 29.4
--- OUTSIDE RECORDS SUMMARY | 2025-03-13 14:10 | XMS_ITS | Encounter Summary ---
Author Organization [facility] Address [address] [place] [address] Care Team Providers Care Accounts Officer Name Role Phone Ruchi Weeks MD Primary Care Provider [phone] Encounter Details Date Type Department Care Team (Late st Contact Info) Description 03/06/2025 [facility] PRIMARY CARE ABSTRACTION Margot Quispe [place] Social History Tobacco Use Types Packs/Day Years Used Date Smoking Tobacco: Never Smokeless Tobacco: Never Alcohol Use Standard Drinks/Week Comments No 0 (1 standard drink = 0.6 oz pur e alcohol) Comments No Sex and Gender Information Value Date Recorded Sex Assigned at Not on file Legal Sex Female 9:42 AM EDT Gender Identity Not on file Sexual Orientation Not on file documented as of this encounter Plan of Treatment Upcoming Encounters Date Type Department Care Team (Late st Contact Info) Description 03/21/2025 9:30 AM EDT Ancillary Procedure [facility] [address] [place] [phone] 08/20/2025 11:30 AM EDT Office Visit Internal Medicine - [facility] [address] [place], [place] [phone] Ruchi Weeks MD [address] [place], [place] documented as of this encounter Visit Diagnoses Not on filedocumented in this encounter Care Teams Accounts Officer Relationship Specialty Start Date End Date Ruchi Weeks MD [address] [place], [place] [address] [address] PCP - General Internal Medicine 02/21/25 documented as of this encounter
--- OUTSIDE RECORDS SUMMARY | 2025-03-13 14:10 | XMS_ITS | Clinical Summary ---
Author Organization Patient Business Ser [facility] Address [address] [place] [address] Care Team Providers Care Operational Review Sergeant Name Role Phone Ruchi Weeks MD Primary Care Provider [phone] Allergies Active Allergy Reactions Criticality Noted Date Comments Penicillins Other 02/23/2018 Medications hydrOXYzine HCL (ATARAX) 10 mg tablet TAKE 1/2 TABLET BY MOUTH EVERY 8 HOURS NEEDED FOR ANXIETY. 4 Active docusate sodium (COLACE) 100 mg capsule Take 1 capsule (100 mg total) by mouth 1 (one) time each day. 5 Active multivitamin with minerals tablet Take 1 tablet by mouth 1 (one) time each day. Active escitalopram (LEXAPRO) 5 mg tablet Take 1 tablet (5 mg total) by mouth 1 (one) time each day. 90 each 1 5 025 Active pantoprazole (PROTONIX) 40 mg EC tablet Take 1 tablet (40 mg total) by mouth 1 (one) time each day. 90 each 1 5 025 Active ondansetron ODT (ZOFRAN-ODT) 4 mg disintegrating tablet Dissolve 1 tablet (4 mg total) on top of the tongue every 8 (eight) hours if needed for nausea or vomiting. Active escitalopram (LEXAPRO) 5 mg tablet Take 1 tablet (5 mg total) by mouth 1 (one) time each day. 4 025 Discontin ued(Reord er) pantoprazole (PROTONIX) 40 mg EC tablet Take 1 tablet (40 mg total) by mouth 1 (one) time each day. 025 Discontin ued(Reord er) Active Problems Problem Noted Date Diagnosed Date Anxiety 03/06/2025 Patellar instability of both knees 03/06/2025 Encounters Date Type Department Care Team Description 03/06/2025 8:30 AM EDT [facility] [address] [place] [phone] Noe Enciso PA Anxiety (Primary Dx); Tachycardia; Numbness 03/06/2025 Telephone [facility] Margot Quispe MA 02/21/2025 Telephone Internal Medicine - [address] [phone] Ruchi Weeks MD Anxiety from Last 3 Months Immunizations Name Administration Dates Next Due Tdap Tetanus diptheria acell ular pertussis (Boostrix; Adacel) 7yo and older 09/23/2020 Surgical History Surgery Date Site/Laterality Comments KNEE ARTHROSCOPY Right PROCEDURE: NC ARTHROSCOPY AID TX SPINE&/FX KNEE W/O FIXJ [...] Date Smoking Tobacco: Never Smokeless Tobacco: Never Tobacco Cessation:Counseling Given: Not Answered Alcohol Use Standard Drinks/Week Comments No 0 (1 standard drink = 0.6 oz pur e alcohol) Comments No Sex and Gender Information Value Date Recorded Sex Assigned at Not on file Legal Sex Female 9:42 AM EDT Gender Identity Not on file Sexual Orientation Not on file Obstetrics History Last Filed Vital Signs Vital Sign Reading Time Taken Comments Blood Pressure 98/70 03/06/2025 8:17 AM EDT Pulse 84 03/06/2025 8:26 AM EDT Temperature - - Respiratory Rate 16 03/06/2025 8:17 AM EDT Oxygen Saturation - - Inhaled Oxygen Concentration - - Weight 81.2 kg (179 lb) 03/06/2025 8:17 AM EDT Height 160 cm (5' 3 ) 07/15/2023 10:17 AM EDT Body Mass Index 31.71 07/15/2023 10:17 AM EDT Plan of Treatment Upcoming Encounters Date Type Department Care Team (Late st Contact Info) Description 03/21/2025 9:30 AM EDT Ancillary Procedure [facility] [address] [place] [address] 08/20/2025 11:30 AM EDT [facility] [address] [place], [place] [phone] Ruchi Weeks MD [address] [place], [place] Health Maintenance Due Date Last Done Comments Hepatitis B Vaccines (1 of 3 - 19+ 3-dose series) 2014 Cervical Cancer Screening: Pap Smear 2016 Depression Screening 07/07/2020 Social Influencers of Health Screening 07/07/2020 COVID-19 Vaccine (4 - 2023-2 5 season) 2024 03/09/2022, 09/28/2021, 08/31/2021 Influenza Vaccine (Season Ended) 2025 Cholesterol Screening (Lipid Panel) 07/03/2025 07/03/2020 DTaP,Tdap,and Td Vaccines (2 - Td or Tdap) 09/23/2030 09/23/2020 HIB Vaccines Aged Out No longer eligi ble based on patient's age to complete this topic HIV Screening Discontinued HPV Vaccines Aged Out No longer eligi ble based on patient's age to complete this topic Hepatitis A Vaccines Aged Out No long er eligible based on patient's age to complete this topic Hepatitis C Screening Discontinued IPV Vaccines Aged Out No longer eligi [...] 64 Years) Aged Out No longer eligible based on patient's age to complete this topic RSV Immunization Patients Under 20 months Aged Out No longer eligible based on patient's age to complete this topic Varicella Vaccines Aged Out No longer eligible based on patient's age to complete this topic Procedures Procedure Name Priority Date/Time Associated Diagnosis Comments LIPID PANEL Routine 07/03/2020 from Last 3 Months or Most Recently Relevant to Health Maintenance Results * Lipid panel (07/03/2020) LDL/HDL Ratio 3 Triglycerides 89 mg/dL Cholesterol 141 mg/dL HDL 47 mg/dL LDL Cholesterol 77 mg/dL Blood Venous blood specimen / Unknown [facility] Provider LAB BLOOD ORDERABLES Makayla l Result from Last 3 Months or Most Recently Relevant to Health Maintenance Insurance [facility] [employer] Care Teams Operational Review Sergeant Relationship Specialty Start Date End Date Ruchi Weeks MD [address] [place] [phone] PCP - General Internal Medicine 02/21/25
== END 2025-03-13 13:55 | disposition home or self-care (01) ==
LOC: HO.HBS 13:37
PROVIDERS: PCP Student in an Organized Health Care Education/Training Program; Visit Provider Physician Assistant Surgical
DX: E66.3 Overweight (principal); Z98.84 Bariatric surgery status
CPT/HCPCS: 99024

== ENCOUNTER 2025-03-28 10:50 | Outpatient (AMB) | payer OTHER, SELFPAY ==
--- NOTE | 2025-03-28 10:30 | MHC.WMTHER ---
Intake Intake Visit Reasons: TV PO LSG 02/05/25 Allergies amoxicillin Allergy (Mild, Verified 02/22/25 13:58) Hives Penicillins Allergy (Mild, Verified 02/22/25 13:58) Hives apples Allergy (Mild, Uncoded 01/29/25 08:51) mouth gets numb and tingles PFSH Medical History (Updated 03/13/25 @ 13:45 by JODIE Noe) BMI 35.0-35.9,adult Arthritis Anxiety Depression GERD (gastroesophageal reflux disease) DJD (degenerative joint disease) Surgical History S/P laparoscopic sleeve gastrectomy History of esophagogastroduodenoscopy (EGD) (11/07/24) Hx of arthroscopic knee surgery Family History Mother Hypertension Back problem Brother No problems noted. Social History Household Members: None Housing: House Are you a primary direct care counselor to a significant other at home: Yes (4 children) Do you presently have visiting nurse or other home services: No Alcohol intake: current Alcohol intake frequency: holidays/special occasions only Patient Tobacco Use Status: Former Tobacco user Behavioral Health Assessment Weight Management Therapy Therapy Notes Details Subjective: Patient reports overall improvement and has begun introducing some foods into her diet. Describes her mood as ?all right,? though she is feeling stressed due to ongoing financial difficulties. She received a new prescription for Lexapro 5mg but has not yet resumed taking the medication. Objective: Session focused on current functioning and adjustment challenges related to post-operative life. Explored sources of stress, particularly financial concerns. Utilized behavioral activation strategies to support re-engagement in physical activity. A strengths-based approach was applied to facilitate problem-solving and address the patient?s reported concerns. Cognitive Behavioral Therapy (CBT) and Cognitive Processing Therapy (CPT) techniques were integrated into the session. Assessment/Response: Mental status: WNL Risk reported/identified: None Food/Weight/Diet Expectations of change Initial Goal to lose 10% of your weight before surgery, which is about 21lbs. Ultimate weight goal: 191lbs before surgery Pt started the program at 212Lbs and the most recent weight as of 12/20/2024 was 195Lbs. . Day of surgery weight 02/05/2025: 181 Lbs. PO weight 02/13/25: 177Lbs PO weight 02/26/2025: 168Lbs PO weight 03/28/2025: 162Lbs Pt's target weight: 140 lbs. PT is implementing the following: Current meal plan: 3 shakes and 1 meal. Exercise plan: Daily walks. Assessment & Plan Assessment & Plan (1) Anxiety: Code(s): F41.9 - Anxiety disorder, unspecified (2) Status post bariatric surgery: Code(s): Z98.84 - Bariatric surgery status Plan Follow-up scheduled in 6 weeks. Next ruthann: 05/02/25 at 10am telehealth Telehealth Telehealth Telehealth Platform: [employer] Location of provider rendering services: other Location of patient: address on file Patient Identification confirmed using: Name, : Yes Telehealth method: video Patient verbally consented to treatment: Yes Patient verbally consented to billing insurance company: Yes Patient informed of any privacy concerns related to visit: Yes Minutes spent on Phone/Video with Pt.: 40 Coding Level of Care Code Established Pt Tele Psytx 45 mins ([id number]) Patient Type Established Diagnoses Anxiety F41.9 Status post bariatric surgery Z98.84 Time Spent (min) 40 Comment start time: 10:30am - end time: 11:10am
== END 2025-03-28 11:14 | disposition home or self-care (01) ==
LOC: HO.HBST 10:50
PROVIDERS: PCP Student in an Organized Health Care Education/Training Program; Visit Provider Counselor Mental Health
DX: F41.9 Anxiety disorder, unspecified (principal); Z98.84 Bariatric surgery status
CPT/HCPCS: 90834

== ENCOUNTER → 2025-03-28 10:50 | Outpatient (BNVA) | payer OTHER, SELFPAY | PROVIDERS: PCP Student in an Organized Health Care Education/Training Program; Visit Provider Counselor Mental Health ==